=== PATIENT | female | born 1945 | race Caucasian/White ===

== ENCOUNTER 2017-04-30 09:42 | Observation (INO) | payer MEDICARE ==
--- OUTSIDE RECORDS SUMMARY | 2017-04-30 09:45 | XMS | Clinical Summary ---
:1945 Author Organization [facility] Address [address] [place] [address] Phone Care Team Providers Name Role Phone Gavin Cantu Primary Care Provider tel Allergies Active Allergy Reactions Severity Noted Date Comments Codeine 01/17/2017 Current Medications Prescription Sig. Disp. Refills Start Date End Date Status allopurinol (ZYLOPRIM) 300 10/23/2016 Active MG tabletIndications:Cirrhosi s of liver without ascites, unspecified hepatic cirrhosis type,Fatty liver,Metabolic syndrome,DM (diabetes mellitus screen) ferrous sulfate 325 (65 TK 1 T PO BID 1 01/10/2017 Active FE) MG tabletIndications:Cirrhosi s of liver without ascites, unspecified hepatic cirrhosis type,Fatty liver,Metabolic syndrome,DM (diabetes mellitus screen) furosemide (LASIX) 40 mg Take 20 mg by 0 01/10/2017 Active tabletIndications:Cirrhosi mouth once daily. s of liver without ascites, unspecified hepatic cirrhosis type,Fatty liver,Metabolic syndrome,DM (diabetes mellitus screen) HYDROcodone-acetaminophen TK 1 T PO Q 6 H 0 12/26/2016 Active (NORCO) 10-325 mg per tabletIndications:Cirrhosi s of liver without ascites, unspecified hepatic cirrhosis type,Fatty liver,Metabolic syndrome,DM (diabetes mellitus screen) lisinopril 10/23/2016 Active (PRINIVIL,ZESTRIL) 20 mg tabletIndications:Cirrhosi s of liver without ascites, unspecified hepatic cirrhosis type,Fatty liver,Metabolic syndrome,DM (diabetes mellitus screen) levothyroxine (SYNTHROID, 12/19/2016 Active LEVOXYL) 150 mcg tabletIndications:Cirrhosi s of liver without ascites, unspecified hepatic cirrhosis type,Fatty liver,Metabolic syndrome,DM (diabetes mellitus screen) nadolol (CORGARD) 20 MG TK 1 T PO QD 1 12/25/2016 Active tabletIndications:Cirrhosi s of liver without ascites, unspecified hepatic cirrhosis type,Fatty liver,Metabolic syndrome,DM (diabetes mellitus screen) pantoprazole (PROTONIX) 40 01/16/2017 Active MG EC tabletIndications:Cirrhosi s of liver without ascites, unspecified hepatic cirrhosis type,Fatty liver,Metabolic syndrome,DM (diabetes mellitus screen) LYRICA 75 mg 11/05/2016 Active capsuleIndications:Cirrhos is of liver without ascites, unspecified hepatic cirrhosis type,Fatty liver,Metabolic syndrome,DM (diabetes mellitus screen) amLODIPine (NORVASC) 5 mg TK 1 T PO QD 5 01/14/2017 Active tabletIndications:Cirrhosi s of liver without ascites, unspecified hepatic cirrhosis type,Fatty liver,Metabolic syndrome,DM (diabetes mellitus screen) potassium gluconate 550 mg Take by mouth. Active (90 mg) tabletIndications:Cirrhosi s of liver without ascites, unspecified hepatic cirrhosis type,Fatty liver,Metabolic syndrome,DM (diabetes mellitus screen) cholecalciferol, vitamin Take 2,000 Units Active D3, (VITAMIN D3) 2,000 by mouth daily. unit capsule capsuleIndications:Cirrhos is of liver without ascites, unspecified hepatic cirrhosis type,Fatty liver,Metabolic syndrome,DM (diabetes mellitus screen) coenzyme Q10 (CO Q-10) 100 Take 100 mg by Active mg mouth daily. capsuleIndications:Cirrhos is of liver without ascites, unspecified hepatic cirrhosis type,Fatty liver,Metabolic syndrome,DM (diabetes mellitus screen) magnesium oxide 250 mg Take 250 mg by Active tabletIndications:Cirrhosi mouth daily. s of liver without ascites, unspecified hepatic cirrhosis type,Fatty liver,Metabolic syndrome,DM (diabetes mellitus screen) multivitamin with minerals Take 1 tablet by Active tabletIndications:Cirrhosi mouth daily. s of liver without ascites, unspecified hepatic cirrhosis type,Fatty liver,Metabolic syndrome,DM (diabetes mellitus screen) Active Problems Not on file Encounters Date Type Specialty Care Team Description 04/25/2017 Office Visit Gastroenterology Surya Parry Cirrhosis of liver III, without ascites, unspecified hepatic cirrhosis type (Primary Dx);Abnormal LFTs from Last 3 Months Social History Tobacco Use Types Packs/Day Years Used Date Never Smoker Alcohol Use Drinks/Week oz/Week Comments No Sex Assigned at Date Recorded Not on file Last Filed Vital Signs Vital Sign Reading Time Taken Blood Pressure 154/52 04/25/2017 2:11 PM CDT Pulse 64 04/25/2017 2:11 PM CDT Temperature 36.6 C (97.9 F) 01/17/2017 1:47 PM CDT Respiratory Rate - - Oxygen Saturation - - Inhaled Oxygen Concentration - - Weight 58.5 kg (129 lb) 04/25/2017 2:11 PM CDT Height 152.4 cm (5') 04/25/2017 2:11 PM CDT Body Mass Index 25.19 04/25/2017 2:11 PM CDT Plan of Treatment Date Type Specialty Care Team Description 07/25/2017 Office Visit Gastroenterology Health Maintenance Due Date Last Done Comments COLONOSCOPY 1995 MAMMOGRAM 1995 ZOSTER VACCINE 2005 PNEUMOCOCCAL POLYSACCHARIDE VACCINE AGE 65 AND OVER 2010 PNEUMOCOCCAL-13 2010 INFLUENZA VACCINE 03/05/2017 Results Not on filefrom Last 3 Months Insurance Payer Benefit Plan / Group Subscriber ID Type Phone Address MEDICARE MEDICARE PART A AND B [id number] Medicare [place], [place] [employer] CO OF [id number] [employer] [place] [phone] [place] [address]
[2017-04-30] MEDS ORDERED: Water For Inject, Bacteriostat 30 ML ONE (10:15)
[2017-04-30] MEDS ORDERED: methylPREDNISolone Sod Succ/PF 125 MG/2 ML VIAL ONE (10:15)
[2017-04-30] MEDS ORDERED: cefTRIAXone\\ROCEPHIN 1 GM VIAL ONE (10:25)
[2017-04-30 10:35] LABS: #Eosinphils 0.1 thou/uL (0.0-0.7); #Lymphocytes 0.6 thou/uL (1.20-3.40); #Monocytes 0.3 thou/uL (0.11-0.59); #Neutrophils 2.6 thou/uL (1.40-6.50); %Basophils 0.4 % (0.0-1.0); %Eosinophils 3.7 % (0.0-10.0); %Lymphocytes 17.2 % (21.0-51.0); %Monocytes 7.2 % (0.0-10.0); Hematocrit 43.6 % (36.0-47.0); Mean Platelet Volume 10.6 fL (7.4-10.4); Red Blood Cell (RBC) Count 4.96 mill/uL (4.20-5.40); White Blood Cell (WBC) Count 3.6 thou/uL (4.8-10.8)
[2017-04-30 10:50] LABS: Lactic Acid - Sepsis 1.6 mmol/L (0.5-2.2)
[2017-04-30] MEDS ORDERED: Azithromycin 500 MG VIAL ONE (10:50)
[2017-04-30 10:57] LABS: ALT (SGPT) 30 U/L (8-55); AST (SGOT) 39 U/L (5-34); Alkaline Phosphatase 103 U/L (40-150); Anion Gap 13 mmol/L (10-20); BUN (Urea Nitrogen) 10 mg/dL (9.8-20.1); Bilirubin, Total 0.9 mg/dL (0.2-1.2); CK (CPK) 42 U/L (29-168); Calc. Creatinine Clearance 0 mL/min (70-130); Calcium 8.9 mg/dL (7.8-10.44); Carbon Dioxide 23 mmol/L (23-31); Chloride 102 mmol/L (98-107); Estimated GFR-MDRD 80; Globulin 3.6 g/dL (2.4-3.5)
--- NOTE | 2017-04-30 10:57 | RAD ---
TWO VIEWS CHEST: Comparison: 12-14-16 History: Shortness of breath, cough. FINDINGS: Two views of the chest shows normal sized cardiomediastinal silhouette. There is a moderate right pl eural effusion with adjacent atelectasis. No left pleural effusion is seen. IMPRESSION: Moderate right pleural effusion. POS: [facility]
[2017-04-30 11:01] LABS: Troponin I Less than 0.010 ng/mL (< 0.028)
[2017-04-30 13:46] VITALS: BMI 25.0
[2017-04-30 15:38] VITALS: TEMP 97.8
[2017-04-30 15:57] LABS: BF Reference Range Comment Note:
[2017-04-30 16:11] LABS: BF Color Yellow
[2017-04-30 16:12] LABS: BF WBC/Nonhematics Ct. - Manua 155 /cumm
--- NOTE | 2017-04-30 16:16 | OP ---
DATE OF SERVICE: 04/30/2017 PROCEDURE: Right thoracentesis. PREOPERATIVE DIAGNOSIS: Right pleural effusion. POSTOPERATIVE DIAGNOSIS: Right pleural effusion. ANESTHESIA: 1% lidocaine without epinephrine. DESCRIPTION OF PROCEDURE: Informed consent was obtained from the patient. Risks were explained and included bleeding, infection, and accidental lung puncture. The patient signed the consent form. Time-out was taken prior to the procedure. The patient was placed in the sitting position. The right posterior hemithorax was cleansed at the 5th-6th interspace at the mid scapular line and draped sterilely. A 1% lidocaine was used to anesth etize the entry site. Using sterile technique, a [id number]-[id number] catheter was placed in the right p leural space and 1400 mL of yellow pleural fluid was removed. It had transudative in appearance. T he fluid was sent for the usual studies. The patient tolerated the procedure well. The appearance of the fluid is most likely consistent with either hepatic hydrothorax or congestive heart failure, I favor the former.
[2017-04-30 17:00] LABS: Number Cells Counted-Fluids 100
[2017-04-30 17:32] VITALS: BP 164/71
--- NOTE | 2017-04-30 18:19 | RAD ---
CHEST ONE VIEW: 04/30/17 HISTORY: Thoracentesis. COMPARISON: Earlier exam on the same date. FINDINGS: Cardiac silhouette is magnified by projection. Pulmonary vasculature is upper limits of normal. Medi astinum remains midline with aortic calcification. Right pleural fluid has decreased. There is no evidence of pneumothorax. IMPRESSION: 1. Partial evacuation of the right pleural fluid. No evidence of pneumothorax. 2. Atherosclerosis. POS: [facility]
--- NOTE | 2017-04-30 21:28 | CON ---
DATE OF CONSULTATION: 04/30/2017 CONSULTING PHYSICIAN: Tiny Walton MD REASON FOR CONSULTATION: Right pleural effusion. HISTORY OF PRESENT ILLNESS: Patient is a 72-year-old female who presented to the emergency room ear lier today, complaining of shortness of breath that had been present for the last 3-4 days. She say s about a week ago, she got back from a trip to seeing family in [place]. She caught some typ e of respiratory infection. She has been short of breath for 3-4 days. She had an x-ray in the ER, which showed a moderate-sized pleural effusion. She does have a history of both aortic stenosis and cirrhosis of the liver. She tells me that at on e point in the past, she did have a pleural effusion, but it dissipated after antibiotic therapy. S he has also had fluid in the abdomen in the past, but it has never required paracentesis and she has been taking diuretics to control that. PAST MEDICAL HISTORY: 1. Cirrhosis of the liver considered to be steatohepatitis in origin. 2. Hypertension. 3. Aortic stenosis. 4. Hypothyroidism. 5. Rheumatoid arthritis. PAST SURGICAL HISTORY: Appendectomy, tonsillectomy. PSYCHIATRIC HISTORY: None. SOCIAL HISTORY: Nonsmoker. Never a drinker. Does not use illicit drugs. FAMILY MEDICAL HISTORY: Unremarkable. ALLERGIES: CODEINE. MEDICATIONS PRIOR TO ADMISSION: Levothyroxine, Mercer, nadolol, pantoprazole, Lyrica, amlodipine, ir on sulfate, furosemide. REVIEW OF SYSTEMS: Otherwise negative. PHYSICAL EXAMINATION: VITAL SIGNS: Temperature 98.7, pulse 60, respirations 18, O2 sat 95%, blood pressure 184/81. GENERAL: She is awake and alert and in no acute distress. HEENT: Pupils react. Sclerae are anicteric. Oropharynx clear. NECK: Without adenopathy or JVD. CARDIAC: S1 and S2 regular with a 3/6 systolic murmur at the left sternal border which radiates to the carotids. LUNGS: She has diminished breath sounds in the right base compared to left. She has dullness to pe rcussion on the right base approximately one half way up. ABDOMEN: Soft, slightly protuberant without fluid wave. EXTREMITIES: No clubbing, cyanosis, edema, or bruising. LABORATORY AND DIAGNOSTIC DATA: White blood cell count 3.6, hematocrit 43.6, platelet count 60,000. Sodium 134, potassium 3.9, chloride 102, CO2 of 23, BUN 10, creatinine 0.7, glucose 113, AST 39, A LT 30, alkaline phosphatase 103, BNP 317. Chest x-ray was reviewed. ASSESSMENT: 1. Dyspnea. 2. Right pleural effusion - etiology, hepatic hydrothorax versus congestive heart failure from aort ic stenosis versus parapneumonic from possible recent pneumonia. PLAN: Diagnostic and therapeutic right thoracentesis. We discussed the risk of the procedure inclu ding bleeding, infection, and accidental lung puncture. She understands with her thrombocytopenia t hat she is at increased risk for bleeding. She has agreed to proceed with the previous procedure. Further disposition to follow based on fluid results.
--- NOTE | 2017-05-01 06:36 | SS ---
DATE OF ADMISSION: 04/30/2017 DATE OF DISCHARGE: 04/30/2017 ADMISSION DIAGNOSIS: Moderate right pleural effusion. DISCHARGE DIAGNOSIS: Pleural effusion, improved. OTHER DIAGNOSES: Liver cirrhosis secondary to nonalcoholic fatty liver disease , severe aortic stenosis, hypertension, hyperlipidemia, and chronic gout, hypothyroidism, gastroesophageal reflux disease, neuropathy, anemia. CONSULTATION: Dr. Bain for pulmonary procedures, bedside thoracentesis. HISTORY OF PRESENT ILLNESS: This is a 72-year-old female patient who is being followed by Dr. Singer and Dr. Parry at [facility] for liver cirrhosis, likely secondary to nonalcoholic fatty liver disease and this was initially discovered in 11/2016. During hospitalization when she was admitted for an upper GI bleed, she was found to have esophageal varices at that time, which were found to be due to liver cirrhosis. She has been followed by Dr. Parry since that time and has been doing well. Patient states that she last saw her liver doctor last week. Over the weekend she was traveling to back home from [place] when she developed a cough and that progressively worsened and she developed a shortness of breath over the past 1 to 2 days. In the emergency department today, she was found to have a moderate right pleural effusion as she was mildly hypoxic down to about 90%. She was seen by Dr. Bain who performed a bedside thoracentesis and she had rapid improvement of her symptoms following that. The fluid analysis is pending at this time per Dr. Bain. He was okay with her being discharged home since she had no other signs of infection, heart or lung disease at this time. PAST MEDICAL HISTORY: Again, nonalcoholic fatty liver disease; chronic back pain, status post back surgery; hypertension; hyperlipidemia; hypothyroidism. ALLERGIES: To CODEINE. CURRENT MEDICATIONS: Include levothyroxine 100 mcg daily, nadolol 20 mg daily, pantoprazole 40 mg daily, Lyrica 75 mg daily, amlodipine 10 mg daily, ferrous sulfate 325 mg b.i.d., furosemide 20 mg daily. 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 She lives alone with her daughter nearby. FAMILY HISTORY: Noncontributory. REVIEW OF SYSTEMS: As per the history of present illness, no recent fevers or chills. HEENT: She has had a cough and congestion and upper respiratory symptoms. Cardiac: Denies chest pain or palpitations. She is followed by Dr. Laura. Pulmonary: Positive for cough, positive shortness of breath, no hemoptysis. Gastrointestinal: No nausea, vomiting, abdominal pain, melena, or hematochezia. Genitourinary: No dysuria or hematuria. Neurologic: No weakness, seizures, or syncope. PHYSICAL EXAMINATION: VITAL SIGNS: Temperature 97.8, pulse of 59, respirations 20, pulse oximetry is 95% on room air, blood pressure 164/71. GENERAL: She is awake and alert, in no acute distress. Speech is clear. NECK: Supple. HEENT: Mucosa is moist. Sinus tenderness NECK: anterior cervical adenopathy HEART: Regular rate and rhythm with 3/6 systolic ejection murmur. LUNGS: With decreased breath sounds on the right side, but no wheeze, rales, or rhonchi. ABDOMEN: Soft, nontender. No hepatosplenomegaly. EXTREMITIES: No clubbing, cyanosis, or edema. No calf tenderness. LABORATORY DATA AND IMAGING: White blood cell count 3,600, hemoglobin and hematocrit are 14.2 and 43.6, platelets of 16,000, which has improved from her recent hospitalization. Sodium 134, potassium 3.9, chloride 102, CO2 of 23, BUN and creatinine are 10 and 0.72, serum glucose of 113. Lactic acid of 1.6. AST and ALT of 39 and 30, alkaline phosphatase of 103. Troponin I is less than 0.1. BNP is slightly elevated at 317, albumin of 3.4. Thoracentesis fluid is pending. Chest x-ray initially showed a moderate right pleural effusion, following the thoracentesis, revealed no pneumothorax and partial evacuation of the right pleural fluid. ASSESSMENT AND PLAN: 1. This is a 72-year-old female patient with acute onset of moderate right pleural effusion, status post bedside thoracentesis. Pleural fluid analysis is pending, but appeared transudative per Dr. Bain. He feels like it is most likely due to her liver disease. He agrees with discharge home with close followup on the pleural fluid as an outpatient. 2. Non-alcoholic fatty liver disease. Follow up with Dr. Singer and Dr. Parry. 3. Severe aortic stenosis. Slight elevation in BNP but no overt heart failure. Continue diuretics. She has a followup with Dr. Laura. 4. Upper respiratory infection with cough. We will start benzonatate, Zithromax and close follow-up as an outpatient. MTDD
[2017-05-03 11:19] LABS: Fungus Smear Status Final report (.)
== END 2017-04-30 19:45 | disposition home or self-care (01) ==
LOC: ERS 09:42 → 2SW 12:13
PROVIDERS: ADMIT Family Medicine; ATTEND Family Medicine
PROC: 0W9930Z Drainage of Right Pleural Cavity with Drainage Device, Percutaneous Approach (ICD-10-PCS; principal; 2017-04-30)
DX: J90 Pleural effusion, not elsewhere classified (principal); K76.0 Fatty (change of) liver, not elsewhere classified; K74.60 Unspecified cirrhosis of liver; I35.0 Nonrheumatic aortic (valve) stenosis; I10 Essential (primary) hypertension; E78.5 Hyperlipidemia, unspecified; M10.9 Gout, unspecified; E03.9 Hypothyroidism, unspecified; K21.9 Gastro-esophageal reflux disease without esophagitis; D64.9 Anemia, unspecified; G62.9 Polyneuropathy, unspecified; M54.9 Dorsalgia, unspecified; G89.29 Other chronic pain; Z88.5 Allergy status to narcotic agent; M06.9 Rheumatoid arthritis, unspecified; Z79.899 Other long term (current) drug therapy
CPT/HCPCS: 32554; 36415; 71010; 71020; 80053; 82150; 82550; 82553; 82945; 83605; 83615; 83880; 83986; 84157; 84478; 84484; 85025; 85060; 87040; 87070; 87116; 87205; 87206; 88112; 88305; 88341; 88342; 89051; 93005; 94640; 96365; 96367; 96375; J0456; J0696; J1642; J2930; J7620

== ENCOUNTER 2017-11-11 07:32 | Outpatient (CLI) | payer MEDICARE ==
--- NOTE | 2017-11-11 08:41 | ULT ---
HEPATIC DOPPLER: Date: 11/11/17 HISTORY: Cirrhosis. COMPARISON: None. TECHNIQUE: Maravilla scale, color flow, Doppler imaging, and spectral waveform analysis performed of the liver. FINDINGS: There is increased echogenicity of the liver likely due to hepatic steatosis/hepatocellular disease. Right hepatic lobe measures 16.2 cm. The head of the pancreas has a normal echotexture. The remainder of the pancreas is obscured by bowel gas. Right kidney has an overall normal cortical echotexture. No hydronephrosis. Right kidney is not adequ ately assessed. Spleen is enlarged, measuring 17.2 cm. There is sludge and stone within the lumen of the gallbladder. Gallbladder wall is not thickened. No pericholecystic fluid. Negative Patel's sign. Common bile duct diameter is 0.7 cm. Hepatic Doppler: There is patency and appropriate direction of flow in the hepatic artery, right portal vein, left por maryjane vein, main portal vein, middle hepatic vein, right hepatic vein, and left hepatic vein. Splenic vein and artery are also patent. IMPRESSION: 1. Increased echogenicity of the liver, likely due to hepatic steatosis or hepatocellular disease. 2. Normal hepatic Doppler. 3. Splenomegaly. 4. Sonographic evidence of sludge and stones without evidence of cholecystitis. POS: [facility]
== END 2017-11-11 07:33 | disposition home or self-care (01) ==
LOC: SCSULT 07:32
PROVIDERS: ATTEND Internal Medicine Gastroenterology
DX: K74.60 Unspecified cirrhosis of liver (principal); R18.8 Other ascites; K80.20 Calculus of gallbladder without cholecystitis without obstruction; K82.8 Other specified diseases of gallbladder; R16.1 Splenomegaly, not elsewhere classified; R94.5 Abnormal results of liver function studies
CPT/HCPCS: 76705

== ENCOUNTER 2018-04-14 08:44 | Outpatient (CLI) | payer MEDICARE | END 2018-04-14 08:45 | disposition home or self-care (01) | LOC: BICULT 08:44 | PROVIDERS: ATTEND Internal Medicine Gastroenterology | DX: K74.60 Unspecified cirrhosis of liver (principal); R63.5 Abnormal weight gain; K80.20 Calculus of gallbladder without cholecystitis without obstruction | CPT/HCPCS: 76700 ==

== ENCOUNTER 2018-06-16 11:18 | Outpatient (CLI) | payer MEDICARE | END 2018-06-16 11:19 | disposition home or self-care (01) | LOC: BICMAMMO 11:18 | PROVIDERS: ATTEND Family Medicine | DX: Z12.31 Encounter for screening mammogram for malignant neoplasm of breast (principal); Z80.3 Family history of malignant neoplasm of breast | CPT/HCPCS: 77063; 77067 ==

== ENCOUNTER 2018-10-13 08:13 | Outpatient (CLI) | payer MEDICARE ==
--- NOTE | 2018-10-13 10:17 | ULT ---
ABDOMINAL ULTRASOUND: HISTORY: Abdominal pain. FINDINGS: Real-time imaging of the upper abdomen shows some sludge within the gallbladder and also small, echog enic densities within the gallbladder, which appear to represent a combination of sludge and what geoff ear to be small stones, as there is some minimal shadowing also associated with this. The common randy t is in the 6 mm range. The liver is very heterogeneous in echotexture, without focal lesion. The l iver measures approximately 19.9 cm in length. The spleen is enlarged. It measures 18 cm in length. The pancreas is obscured. The abdominal aorta and IVC regions appear unremarkable. The right kidney is borderline in size and measures 8.4 cm. The left kidney is 9.4 cm in size, and i t also shows cortical thinning. IMPRESSION: 1. Sludge with some tiny, faintly shadowing stones within the gallbladder and common duct, at the up per limits of normal, in the 6 mm range. 2. Heterogeneous liver, which is borderline in size. The spleen is markedly enlarged at 18 cm. POS: [facility]
== END 2018-10-13 08:14 | disposition home or self-care (01) ==
LOC: SCSULT 08:13
PROVIDERS: ATTEND Family Medicine
DX: R10.9 Unspecified abdominal pain (principal); K80.20 Calculus of gallbladder without cholecystitis without obstruction; K76.89 Other specified diseases of liver; R16.1 Splenomegaly, not elsewhere classified
CPT/HCPCS: 76700

== ENCOUNTER 2019-03-25 06:57 | Outpatient (CLI) | payer MEDICARE ==
--- NOTE | 2019-03-25 07:54 | ULT ---
Abdominal Ultrasound: Multiple grayscale images of right upper quadrant obtained according to protocol. INDICATION: Cirrhosis and portal hypertension FINDINGS: Liver: Coarsened echotexture. Gallbladder: Cholelithiasis. Gallbladder wall: Normal. Patel's Sign: Negative Common bile duct is 8 mm, slightly dilated for patient's age Ascites: None Spleen: Enlarged Pancreas: Partially obscured by bowel content, limiting assessment. Kidneys: No acute abnormalities. Aorta/IVC: No acute process. IMPRESSION: Coarsened hepatic echotexture which may relate to hepatocellular disease. No focal hepatic lesion estefani ntified. Cholelithiasis. Splenomegaly. This may relate to sequela from portal hypertension. Mild dilatation of common duct. Correlate with biliary laboratory values.
== END 2019-03-25 06:58 | disposition home or self-care (01) ==
LOC: BICULT 06:57
PROVIDERS: ATTEND Internal Medicine
DX: K74.60 Unspecified cirrhosis of liver (principal); R94.5 Abnormal results of liver function studies; K75.81 Nonalcoholic steatohepatitis (NASH); K76.6 Portal hypertension; K80.20 Calculus of gallbladder without cholecystitis without obstruction; R16.1 Splenomegaly, not elsewhere classified
CPT/HCPCS: 76700

== ENCOUNTER 2019-07-10 06:56 | Outpatient (CLI) | payer MEDICARE ==
--- NOTE | 2019-07-10 08:19 | ULT ---
LIVER ULTRASOUND WITH COLOR AND SPECTRAL DOPPLER IMAGING: HISTORY: Cirrhosis. COMPARISON: 11/11/2017. FINDINGS: Coarse liver echogenicity. Multiple mobile hyperechoic foci within the gallbladder suspicious for st ones. Minimal focal gallbladder wall thickening up to 0.7 cm, although the remainder of the gallblad sergo wall appeared within normal limits. Common bile duct 0.4 cm. Somewhat small right kidney with c ortical thinning without hydronephrosis. Hepatic venous and portal venous flow. IMPRESSION: Coarse altered liver echogenicity showing little change from prior study. Multiple gallstones. Ther e is 1 focal area of gallbladder wall thickening, although the remainder of the gallbladder wall was within normal limits. No ductal dilatation. Antegrade hepatic and portal venous flow. Splenomegaly up to 16 cm. POS: [facility]
== END 2019-07-10 06:57 | disposition home or self-care (01) ==
LOC: BICULT 06:56
PROVIDERS: ATTEND Internal Medicine
DX: K75.81 Nonalcoholic steatohepatitis (NASH) (principal); K74.60 Unspecified cirrhosis of liver; R94.5 Abnormal results of liver function studies; E70.0 Classical phenylketonuria; K80.80 Other cholelithiasis without obstruction; K82.8 Other specified diseases of gallbladder; R16.1 Splenomegaly, not elsewhere classified
CPT/HCPCS: 76705

== ENCOUNTER 2019-07-28 22:38 | Emergency (ER) | payer MEDICARE ==
[2019-07-29 02:18] LABS: Bacteria/HPF 1+ HPF (None Seen); Bilirubin Negative (Negative); Blood, Urine 3+ (Negative); Clarity Extra Turbid (Clear); Glucose, Urine (Dipstick) Normal (Negative); Leukocyte 500 Leu/uL (Negative); Nitrite Negative (Negative); Protein, Urine (Dipstick) 70 mg/dL (Neg-Trace); RBC/HPF Greater than 50 HPF (0-3); Squamous Epithelial 0-3 HPF (0-3); Urobilinogen Normal mg/dL (Less than 2); WBC/HPF Greater than 50 HPF (0-3)
[2019-07-29] MEDS ORDERED: Lidocaine 1% PF 5 ML VIAL ONE (03:01)
[2019-07-29] MEDS ORDERED: cefTRIAXone\\ROCEPHIN 1 GM VIAL ONE (03:01)
== END 2019-07-29 03:25 | disposition home or self-care (01) ==
LOC: ERS 22:38
DX: N39.0 Urinary tract infection, site not specified (principal); I10 Essential (primary) hypertension; E78.5 Hyperlipidemia, unspecified; E03.9 Hypothyroidism, unspecified; M06.9 Rheumatoid arthritis, unspecified; Z79.899 Other long term (current) drug therapy; Z79.891 Long term (current) use of opiate analgesic
CPT/HCPCS: 51701; 81003; 81015; 87077; 87086; 87186; 96372; A4353; J0696; J2001

== ENCOUNTER 2019-08-03 08:18 | Emergency (ER) | payer MEDICARE ==
[2019-08-03 09:15] LABS: #Eosinphils 0.1 thou/uL (0.0-0.7); #Lymphocytes 0.9 thou/uL (1.20-3.40); #Monocytes 0.2 thou/uL (0.11-0.59); %Basophils 0.6 % (0.0-1.0); %Eosinophils 3.2 % (0.0-10.0); %Lymphocytes 28.2 % (21.0-51.0); %Monocytes 6.8 % (0.0-10.0); %Neutrophils 61.2 % (42.0-75.0); Hemoglobin 12.6 g/dL (12.0-16.0); Mean Corpuscular HGB CONC 34.8 g/dL (32.0-36.0); Mean Corpuscular Hemoglobin 30.6 pg (27.0-31.0); RBC Distribution Width 12.3 % (11.5-14.5); Red Blood Cell (RBC) Count 4.12 mill/uL (4.20-5.40); White Blood Cell (WBC) Count 3.3 thou/uL (4.8-10.8)
--- NOTE | 2019-08-03 09:28 | CT ---
CT BRAIN NONCONTRAST: DATE: 08/03/2019 HISTORY: 74-year-old female status post acute head trauma from fall. FINDINGS: There is no evidence of acute intra-axial or extra-axial hemorrhage. There is no midline shift or any other mass effect. There is no extra-axial fluid collection. There is no evidence of obstructive hydrocephalus. Calvarium is intact. Opacification of right posterior ethmoid air cells. IMPRESSION: No acute intracranial findings.
[2019-08-03 09:29] LABS: ALT (SGPT) 23 U/L (8-55); AST (SGOT) 33 U/L (5-34); Albumin 3.2 g/dL (3.4-4.8); Alkaline Phosphatase 110 U/L (40-110); Anion Gap 11 mmol/L (10-20); BUN (Urea Nitrogen) 13 mg/dL (9.8-20.1); Bilirubin, Total 1.2 mg/dL (0.2-1.2); Calc. Creatinine Clearance 0 mL/min (70-130); Calcium 8.8 mg/dL (7.8-10.44); Carbon Dioxide 25 mmol/L (23-31); Chloride 98 mmol/L (98-107); Estimated GFR-MDRD 67; Globulin 3.4 g/dL (2.4-3.5); Glucose 136 mg/dL (83-110); Potassium 4.1 mmol/L (3.5-5.1); Protein, Total 6.6 g/dL (6.0-8.3); Sodium 130 mmol/L (136-145)
[2019-08-03 09:42] LABS: Mean Platelet Volume 9.7 fL (7.4-10.4); Platelet Count 43 thou/uL (130-400); Platelet Morphology Comment Appears Decreased; RBC Morphology Normal
[2019-08-03] MEDS ORDERED: Lidocaine 1% w/Epinephrine 1:100K 20 ML VIAL ONE (10:17)
[2019-08-03] MEDS ORDERED: Adacel (T-DAP) 0.5 ML SYRINGE ONE (11:23)
[2019-08-03] MEDS ORDERED: Bacitracin 1 PK ONE (11:45)
== END 2019-08-03 11:50 | disposition home or self-care (01) ==
LOC: ERS 08:18
DX: S01.81XA Laceration without foreign body of other part of head, initial encounter (principal); E78.5 Hyperlipidemia, unspecified; I10 Essential (primary) hypertension; M10.9 Gout, unspecified; E03.9 Hypothyroidism, unspecified; M06.9 Rheumatoid arthritis, unspecified; Z79.899 Other long term (current) drug therapy; Z79.891 Long term (current) use of opiate analgesic; Z23 Encounter for immunization; W01.0XXA Fall on same level from slipping, tripping and stumbling without subsequent striking against object, initial encounter
CPT/HCPCS: 12011; 36415; 70450; 80053; 85025; 90471; 90715; 93005

== ENCOUNTER 2019-11-25 07:22 | Outpatient (CLI) | payer MEDICARE ==
--- NOTE | 2019-11-25 12:05 | ULT ---
ULTRASOUND ABDOMEN: HISTORY: Nonalcoholic steatohepatitis. COMPARISON: Ultrasound of 03/25/2018. FINDINGS: Real-time, bobo scale, and color evaluation of the abdomen was performed. Visualized portions of the aorta, IVC, and pancreas are unremarkable. The pancreatic duct is normal. There is a nodular contour of the liver. There is increased hepatic echotexture throughout. The liver measures 15 cm in length. The pulmonary vein is patent with antegrade flow. Minimal phasi city. There is gallbladder sludge and debris. Gallbladder wall thickness is normal. The common bile duct is normal. The right kidney measures 9.3 x 3.8 x 4.3 cm and the left kidney measures 10.6 x 4.6 x 4.4 cm. No re nal mass, hydronephrosis, or abnormal calcification. The spleen is enlarged measuring 18 cm in lengt h. IMPRESSION: 1. Small cirrhotic liver without mass appreciated. 2. Marked splenomegaly. 3. Decreased flow within the portal vein indicating portal hypertension. The portal vein is patent. 4. Gallbladder sludge and debris with cholelithiasis. No evidence for cholecystitis. POS: [facility]
== END 2019-11-25 07:23 | disposition home or self-care (01) ==
LOC: ULT 07:22
PROVIDERS: ATTEND Internal Medicine
DX: K75.81 Nonalcoholic steatohepatitis (NASH) (principal); K74.60 Unspecified cirrhosis of liver; R94.5 Abnormal results of liver function studies; R16.1 Splenomegaly, not elsewhere classified; K76.6 Portal hypertension; K80.20 Calculus of gallbladder without cholecystitis without obstruction; K82.8 Other specified diseases of gallbladder
CPT/HCPCS: 93975

== ENCOUNTER 2019-12-22 22:46 | Inpatient (IN) | payer MEDICARE ==
[2019-12-22] MEDS ORDERED: Atropine Sulfate 1 mg/10 ml Syringe ONE (23:44)
[2019-12-22] MEDS ORDERED: Aspirin Chewable 81 MG TAB ONE (23:44)
[2019-12-22 23:57] LABS: #Eosinphils 0.2 thou/uL (0.0-0.7); #Lymphocytes 0.9 thou/uL (1.20-3.40); #Monocytes 0.6 thou/uL (0.11-0.59); #Neutrophils 7.7 thou/uL (1.40-6.50); %Basophils 0.3 % (0.0-1.0); %Eosinophils 2.3 % (0.0-10.0); %Lymphocytes 9.9 % (21.0-51.0); %Monocytes 6.4 % (0.0-10.0); %Neutrophils 81.2 % (42.0-75.0); Hemoglobin 12.5 g/dL (12.0-16.0); Mean Corpuscular HGB CONC 34.6 g/dL (32.0-36.0); Mean Corpuscular Hemoglobin 30.7 pg (27.0-31.0); Mean Corpuscular Volume 88.7 fL (78.0-98.0); Mean Platelet Volume 9.7 fL (7.4-10.4); Platelet Count 73 thou/uL (130-400); RBC Distribution Width 12.4 % (11.5-14.5); Red Blood Cell (RBC) Count 4.08 mill/uL (4.20-5.40); White Blood Cell (WBC) Count 9.4 thou/uL (4.8-10.8)
[2019-12-23 00:05] LABS: ALT (SGPT) 27 U/L (8-55); AST (SGOT) 31 U/L (5-34); Albumin 3.5 g/dL (3.4-4.8); Alkaline Phosphatase 117 U/L (40-110); Anion Gap 16 mmol/L (10-20); BUN (Urea Nitrogen) 37 mg/dL (9.8-20.1); Bilirubin, Total 1.4 mg/dL (0.2-1.2); Calc. Creatinine Clearance 0 mL/min (70-130); Calcium 8.9 mg/dL (7.8-10.44); Carbon Dioxide 20 mmol/L (23-31); Chloride 92 mmol/L (98-107); Estimated GFR-MDRD 33; Globulin 3.8 g/dL (2.4-3.5); Glucose 122 mg/dL (83-110); Potassium 5.6 mmol/L (3.5-5.1); Protein, Total 7.3 g/dL (6.0-8.3); Sodium 122 mmol/L (136-145)
[2019-12-23] MEDS ORDERED: Acetaminophen 325 MG TAB PO PRN (02:27)
--- NOTE | 2019-12-23 02:37 | PDOC.HHP ---
Hospitalist HPI - History of Present Illness Lightheaded History of Present Illness: This patient is a 74-year-old female who has a history of cirrhosis likely secondary to chronic nonalcoholic fatty liver disease. She is followed in [place] by a tankman there. The patient reports for the last couple of months she has had episodes in which she would feel suddenly faint and lightheaded and dizzy. This would happen at random times and was unrelated to her activity level. Typically she would stop put her head down and the symptoms would generally go away fairly quickly. She had been monitoring her blood pressure and heart rate at home. Her blood pressure had been running a little high. Heart rate had been running generally in the 50s to 70s. Today the patient noted heart rate in the 40s so she presented to the emergency department. She reported some additional symptoms of some nausea vomiting. She also reports that she has had some occasional fleeting chest pain. She describes this as longstanding and not related to the more recent symptoms. ED Course: Patient's heart rate was noted to be as low as the 30s. She was given a dose of atropine and her heart rate did improve. She reported feeling better after this. Hospitalist ROS - Review of Systems Constitutional: denies: fever, chills Cardiovascular: reports: chest pain. denies: palpitations Gastrointestinal: reports: nausea. denies: vomiting, abdominal pain Neurological: reports: weakness All other systems reviewed; all pertinent +/- noted in HPI/Subj - Medication Medications: levothyroxine oral TABLET : Strength - 100 mcg : ORAL Patient Dose: UNK mcg Oral once a day. [place] TABLET : Strength - 10 mg-325 mg : ORAL Patient Dose: 1 tab(s) Oral every 6 hours PRN. nadolol TABLET : Strength - 20 mg : ORAL Patient Dose: 1 tab(s) Oral once a day. amLODIPine TABLET : Strength - 10 mg : ORAL Patient Dose: 1 tab(s) Oral once a day. Lyrica CAPSULE : Strength - 75 mg : ORAL Patient Dose: 1 tab(s) Oral once a day. pantoprazole oral TABLET, DELAYED RELEASE (ENTERIC COATED) : Strength - 40 mg : ORAL Patient Dose: 1 tab(s) Oral once a day. furosemide oral TABLET : Strength - 20 mg : ORAL Patient Dose: 10 mg null once a day. ferrous sulfate oral TABLET : Strength - 28 mg iron : ORAL Patient Dose: 325 mg Oral 2 times a day (before meals). Macrobid capsule : Strength - 100 mg : ORAL Patient Dose: 100 mg Oral 2 times a day. Pyridium tablet : Strength - 100 mg : ORAL Patient Dose: 100 mg Oral 3 times a day. 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: Peripheral neuropathy (Secondary to shingles in the right upper extremity.) Gastrointestinal: reports: GERD, Other (Cirrhosis presumed to be secondary to chronic nonalcoholic fatty liver disease.) Endocrine: reports: Hypothyroidism - Past Surgical History Past Surgical History: reports: Hysterectomy, Hernia Repair, Tonsillectomy Other Surgical History: Lumbar spinal stenosis surgery - Family History Family History: reports: cancer (Sister with breast cancer), cerebrovascular accident (Mother), Other (Sister with Crohn's disease her father had "enlarged heart") - Social History Smoking Status: Never smoker Alcohol: reports: None Drugs: reports: none Activity level: independent ambulation Other Social History: . DNAR. Her daughter would be her surrogate decision maker. Hospitalist Results - Labs Result Diagrams: 12/22/19 23:26 12/22/19 23:26 Lab results: WBC 9.4 thou/uL (4.8-10.8) 12/22/19 23:26 Hgb 12.5 g/dL (12.0-16.0) 12/22/19 23:26 Hct 36.2 % (36.0-47.0) 12/22/19 23:26 MCV 88.7 fL (78.0-98.0) 12/22/19 23:26 Plt Count 73 thou/uL (130-400) L 12/22/19 23:26 Neutrophils % 81.2 % (42.0-75.0) H 12/22/19 23:26 Sodium 122 mmol/L (136-145) L 12/22/19 23:26 Potassium 5.6 mmol/L (3.5-5.1) H 12/22/19 23:26 Chloride 92 mmol/L (98-107) L 12/22/19 23:26 Carbon Dioxide 20 mmol/L (23-31) L 12/22/19 23:26 BUN 37 mg/dL (9.8-20.1) H 12/22/19 23:26 Creatinine 1.52 mg/dL (0.6-1.1) H 12/22/19 23:26 Glucose 122 mg/dL (83-110) H 12/22/19 23:26 Calcium 8.9 mg/dL (7.8-10.44) 12/22/19 23:26 Total Bilirubin 1.4 mg/dL (0.2-1.2) H 12/22/19 23:26 AST 31 U/L (5-34) 12/22/19 23: ALT 27 U/L (8-55) 12/22/19 23:26 Alkaline Phosphatase 117 U/L (40-110) H 12/22/19 23: Troponin I 0.026 ng/mL (< 0.028) 12/22/19 23: Serum Total Protein 7.3 g/dL (6.0-8.3) 12/22/19: Albumin 3.5 g/dL (3.4-4.8) 12/22/19 23:26 - EKG Interpretation EKG: EKG shows bradycardia with a heart rate of 41. Heart monitor indicated P waves were present. Hospitalist H&P A/P - Problem (1) Symptomatic bradycardia Code(s): R00.1 - BRADYCARDIA, UNSPECIFIED Status: Acute Assessment and Plan: Patient symptoms appear to be consistent with symptomatic bradycardia. She had an EKG and monitors that would suggest that she is having episodes of bradycardia. Patient will remain on telemetry. Will obtain serial cardiac isoenzymes. We will check a TSH level. We will hold the nadolol for now. Consult cardiology. Currently she is feeling somewhat better and heart rate is somewhat improved. Suspect this is been an intermittent problem (2) Hyponatremia Code(s): E87.1 - HYPO-OSMOLALITY AND HYPONATREMIA Status: Acute Assessment and Plan: This patient has chronic hyponatremia although it is slightly worse now than it has been previously. It appears to be generally asymptomatic as would be expected given her chronic nature. Will consult nephrology. Suspect this is due to her cirrhosis and possibly Lasix as well. (3) Acute worsening of stage 3 chronic kidney disease Code(s): N18.3 - CHRONIC KIDNEY DISEASE, STAGE 3 (MODERATE) Status: Acute Assessment and Plan: This patient has chronic kidney disease stage III. Her GFR is now lower than her baseline. Suspect this is due to acute hepatorenal syndrome. Will give IV albumin. Consult nephrology. (4) Hepatorenal syndrome Code(s): K76.7 - HEPATORENAL SYNDROME Status: Acute (5) Cirrhosis Code(s): K74.60 - UNSPECIFIED CIRRHOSIS OF LIVER Status: Acute Assessment and Plan: We will check INR in anticipation of the possibility of needing cardiac procedure. (6) Nonalcoholic steatohepatitis Code(s): K75.81 - NONALCOHOLIC STEATOHEPATITIS (SINGH) Status: Acute - Plan Plan: Continue PPI. Will provide SCDs rather than anticoagulation given the underlying liver disease and potential need for procedure
[2019-12-23 02:38] VITALS: BMI 28.9
[2019-12-23] MEDS: Albumin 25% 25 GM/100 ML BOT IVPB SCH ×4 (02:49→21:12)
[2019-12-23 02:56] LABS: Troponin I 0.034 ng/mL (< 0.028)
--- NOTE | 2019-12-23 03:31 | PDOC.EVN ---
Event Note - Event Note Event Note: Patient was unable to void. Bladder scan with about 500 cc. I and O cath ordered.
[2019-12-23 04:21] LABS: INR-International Normal Ratio 1.4; Prothrombin Time 17.3 sec (12.0-14.7)
[2019-12-23 04:22] LABS: PTT 47.3 SEC (22.9-36.1)
[2019-12-23] MEDS ORDERED: Levothyroxine Sodium 125 MCG TAB PO SCH (06:00)
[2019-12-23] MEDS: Furosemide 20 MG TAB PO SCH (08:26)
[2019-12-23] MEDS: Famotidine 20 MG TAB PO SCH (08:26)
[2019-12-23] MEDS: Loratadine 10 MG TAB PO SCH (08:26)
[2019-12-23] MEDS: HYDROcodone/Acetaminophen 10/325 mg Tablet PO SCH ×3 (08:28→20:58)
[2019-12-23] MEDS ORDERED: Spironolactone 100 MG TAB PO SCH (09:00)
[2019-12-23 10:26] LABS: Anion Gap 13 mmol/L (10-20); BUN (Urea Nitrogen) 34 mg/dL (9.8-20.1); Calc. Creatinine Clearance 44 mL/min (70-130); Calcium 9.5 mg/dL (7.8-10.44); Carbon Dioxide 23 mmol/L (23-31); Chloride 92 mmol/L (98-107); Estimated GFR-MDRD 44; Glucose 85 mg/dL (83-110); Potassium 4.9 mmol/L (3.5-5.1); Sodium 123 mmol/L (136-145)
[2019-12-23] MEDS ORDERED: Ondansetron ODT 4 MG TAB PO PRN (10:51)
[2019-12-23] MEDS ORDERED: Ondansetron PF 4 MG/2 ML Vial SLOW IVP PRN (11:08)
--- NOTE | 2019-12-23 15:30 | EKG ---
Test Reason : Blood Pressure : / mmHG Vent. Rate : 041 BPM Atrial Rate : 041 BPM P-R Int : 228 ms QRS Dur : 134 ms QT Int : 516 ms P-R-T Axes : 044 -15 008 degrees QTc Int : 425 ms Marked sinus bradycardia with 1st degree A-V block with Premature atrial complexes in a pattern of bi geminy Right bundle branch block Left ventricular hypertrophy Cannot rule out Septal infarct , age undetermined Abnormal ECG Confirmed by SHANIQUA CAMACHO, JEFFERSON Jewell ([id number]), web editor PAULA IGLESIAS ([id number]) on 12/23/2019 3:30:07 PM Referred By: Confirmed By:JEFFERSON MCGOVERN MD
[2019-12-23] MEDS ORDERED: HYDROcodone/Acetaminophen 10/325 mg Tablet PO SCH (17:00)
[2019-12-23 17:34] LABS: Anion Gap 14 mmol/L (10-20); BUN (Urea Nitrogen) 33 mg/dL (9.8-20.1); Calc. Creatinine Clearance 43 mL/min (70-130); Calcium 9.2 mg/dL (7.8-10.44); Carbon Dioxide 21 mmol/L (23-31); Chloride 95 mmol/L (98-107); Estimated GFR-MDRD 43; Glucose 100 mg/dL (83-110); Potassium 4.7 mmol/L (3.5-5.1); Sodium 125 mmol/L (136-145)
[2019-12-23] MEDS: Pregabalin 75 MG CAP PO SCH (20:59)
--- NOTE | 2019-12-23 21:15 | CON ---
DATE OF CONSULTATION: 12/23/2019 PRIMARY CARE PHYSICIAN: Gavin Cantu DO. PRIMARY ETL TESTER: Lily Laura MD. PRIMARY BROOM BUILDER: Aggie Ashraf MD. PRIMARY SLITTER CUT OFF OPERATOR: Dr. Parry in [place], [place]. SHOE CASER: Dr. Mayo. REASON FOR CARDIOLOGY CONSULTATION: Symptomatic bradycardia. HISTORY OF PRESENT ILLNESS: Ms. Bocanegra is a 74-year-old female with a significant history of severe aortic valve stenosis, history of cirrhosis secondary to chronic nonalcoholic fatty liver disease, hypertension, hyperlipidemia, chronic right bundle branch block and bilateral carotid bruit. In September 2019, the patient followed up with Dr. Laura. At that time, her vital signs were stable with a blood pressure of 138/62 with a heart rate of 56 with sinus rhythm. At that time, the patient complained of chronic shortness of breath with exertion with exercise. However, at that time, she denied any other cardiac complaints. According to a family member, she started feeling fatigued within the last few weeks. She complained of more exertion and taking more naps lately. She started having more dizziness with shortness of breath and fatigue all day yesterday. Also, the patient felt almost passed out with movement, walking and while she was resting on the recliner. The patient denied any chest pain, heaviness, tightness, palpitation, or fluttering in her chest. The patient's blood pressure also found to have high more than 200 on the systolic yesterday with heart rate 45 to 50s. Due to those symptoms, the patient decided to present in the emergency department for further evaluation and treatment. The patient was found to have hyperkalemia. The patient received Kayexalate per the nurse. The patient was also found to have hyponatremia and hypercarbia and also acute kidney injury. Nephrology consult is already ordered by the hospitalist. At this moment, the patient denies any chest pain, heaviness, tightness, dizziness, lightheadedness, shortness of breath, or any other complaints, except continued feeling of fatigue. The patient had an echocardiogram in September [address] Laura' office with an EF of 60% to 65%, severe aortic valve stenosis with SHAYLA 0.85 cm with mild mitral valve regurgitation, mild tricuspid regurgitation, and mild pulmonary regurgitation. The patient had a cardiac cath in 2017 with mild stenosis in LAD , mild aortic valve stenosis, AV gradient of 25 to 30 mmHg with normal EF and with 30% of stenosis in LAD and 50% of stenosis in first diagonal. PAST MEDICAL HISTORY: Cirrhosis secondary to nonalcoholic fatty liver disease in 2017, inguinal hernia, hypertension, hyperlipidemia, osteoarthritis, hypothyroidism, spinal stenosis, nonrheumatic aortic valve stenosis, bilateral carotid artery bruits, and chronic right bundle branch block. PAST SURGICAL HISTORY: Pleural effusion status post thoracentesis, appendectomy , bilateral cataract surgery, bilateral oophorectomy, hernia repair, hysterectomy, spinal stenosis repair and catheterization in 2017. FAMILY HISTORY: The patient's mother has a medical history of CVA and hypertension. The patient's father has a history of myocardial infarction. The patient's sister had a history of breast cancer and also sister has Crohn disease. SOCIAL HISTORY: The patient is a . The patient has children, who lives well. She denies EtOH, tobacco, or illicit drug abuse. At home, she is independent ambulation. ALLERGIES: SHE HAS NO KNOWN DRUG ALLERGIES. MEDICATIONS: 1. Vitamin D3 2000 units once a day. 2. CoQ10 100 mg once a day. 3. Lyrica 75 mg once a day. 4. Multivitamin 1 tablet once a day. 5. Nadolol 20 mg once a day. 6. Magnesium 250 mg once a day. 7. Protonix 40 mg once a day. 8. Lactulose 10 g/15 mL once a day. 9. Lasix 40 mg once a day. 10. Ferrous sulfate 325 mg once a day. 11. Levothyroxine 150 mcg once a day. 12. Hydrochlorothiazide with acetaminophen 10/325 mg 1 tablet once a day as needed every 6 hours. 13. Spironolactone 100 mg once a day. 14. Premarin 0.625 mg/g. 15. Trimo-Dalton 0.025% gel. 16. Claritin 10 mg 1 tablet once a day. 17. Premarin 0.3 mg 1 tablet once a day. 18. Hysingla ER 30 mg once a day. 19. Tirosint 150 mcg once a day. REVIEW OF SYSTEMS: A 12-point review of systems negative unless otherwise mentioned in the HPI. PHYSICAL EXAMINATION: VITAL SIGNS: Blood pressure 168/72, temperature 97.2, pulse is 58, respiratory rate 17, O2 saturation 98% on room air. GENERAL: The patient is alert and oriented x4, not in acute distress. HEAD: Normocephalic, atraumatic. EYES: Extraocular muscle movement intact. ENT AND MOUTH: Oral and nasal mucosa moist without lesion. She wears glasses. NECK: Supple. Normal range of motion. The patient has some bruits in the bilateral carotid area. RESPIRATORY: Clear to auscultate bilaterally, but with no wheezing, rales, or rhonchi noted. CARDIOVASCULAR: Regular rate and rhythm. Normal S1, S2. There is no S3 or S4. She has a murmur on the right mediastinal border. Otherwise, no hives or thrills noted. 2+ pulses in bilateral upper and lower extremities. No edema in the lower extremities. ABDOMEN: Soft, nontender. No mass to palpation, but the patient complained of nausea since the patient has Kayexalate or lactulose. MUSCULOSKELETAL: The patient is able to move all extremities without difficulty. The patient denied claudication. SKIN: Warm and dry. No lesion, rash, or erythema noted. NEUROLOGIC: The patient is alert, oriented x4, nonfocal. PSYCHIATRIC: The patient's mood is appropriate. LABORATORY DATA: WBC 9.4, hemoglobin 12.5, hematocrit 36.2, platelets 73, which is low; however, the patient's platelet level was 49 in November 2019. INR 1.4. Sodium 123, potassium 4.9, BUN 34, creatinine 1.19, GFR 44, serum osmolality 270, calcium 9.5, AST 31, ALT 27, alkaline phosphatase 117, troponin 0.026, 0.034, 0.030. Albumin 3.5, globulin 3.8, and TSH 3.0113. Urine osmolality 259. ASSESSMENT AND PLAN: 1. Symptomatic bradycardia. The patient's condition is stable at this moment possibly due to hyperkalemia or hyponatremia. The patient's thyroid function is stable at this moment. Nadolol is on hold at this moment. We would like to continue to monitor on the telemetry, but the patient's heart rate has been stable. 2. Hyponatremia. Fluid restriction will be ordered for this patient. She states she drinks at least a couple large glass of water at home. The patient has the supervisor [employer]'s consult by Dr. Mitchell today. 3. Hypertension. The patient's blood pressure is more stable at this moment. We would like to adjust the patient's medication as appropriate. 4. Acute kidney injury on chronic kidney disease, stage 3 with a GFR of 44. The patient has a Nephrology consult by Dr. Mitchell. 5. Cirrhosis secondary to nonalcoholic fatty liver disease. The patient has been following up with Dr. Ashraf every three months and Dr. Parry in [place] every year. The patient's liver function is stable at this moment. 6. Severe aortic valve stenosis. The echocardiogram in September 2019 shows severe aortic valve stenosis with SHAYLA of 0.85 cm. The patient is going to have another echo today to compare the results. If the patient still shows severe aortic valve stenosis, possibly the patient is going to undergo cardiac catheterization for further valve evaluation. Thank you very much for Cardiology Service consult request to participate in the care of this patient. We will follow along the patient's care team and make further recommendations as appropriate. Job ID: [id number] MTDD
--- NOTE | 2019-12-24 01:40 | CON ---
DATE OF CONSULTATION: REASON FOR CONSULTATION: Hyperkalemia and elevated creatinine. HISTORY OF PRESENT ILLNESS: A very pleasant 74-year-old female, who presented to the hospital early this morning with hyperkalemia and a sodium of 122 with elevated creatinine. The patient was complaining of lightheadedness. The patient can give no further history. PAST MEDICAL HISTORY: Significant for hypothyroidism, history of peripheral neuropathy, GERD, nonalcoholic fatty hepatitis, history of hyponatremia, history of acute kidney injury, history of hysterectomy, hernia repair, tonsillectomy, lumbar spinal stenosis surgery. MEDICATIONS: Home medications list reviewed. Hospital medications list reviewed. REVIEW OF SYSTEMS: 15-point review of system was performed negative except for positives noted above. HEENT: Eyes intact, no diplopia. Ears: No hearing loss or earache. Nose: No discharge or bleeding. Chest: No cough or phlegm. Abdomen: No nausea or vomiting. Genitourinary: No hematuria. No Jama catheter. Musculoskeletal: No low back pain. No joint swelling or pain. Neurological: No syncope. No seizures. Skin: No complaints of rash or itching. Psychiatric: No depression. Constitutional: No weight loss or loss of appetite. LABORATORY DATA: Labs show hemoglobin 12.5. Sodium 122, potassium 5.6, creatinine 1.5. ASSESSMENT AND RECOMMENDATIONS: 1. Acute kidney injury with chronic kidney disease most likely due to decreased effective arterial blood volume. 2. Hyponatremia, most likely due to decreased effective arterial blood volume versus SIADH. Would recommend fluid restriction and follow sodium. 3. Hyperkalemia, resolved. 4. Hepatorenal syndrome. 5. Medication based on GFR appropriate. No indication for hypertonic saline. We will check labs every 5 to 6 hours. Job ID: [id number]
[2019-12-24 04:51] LABS: Anion Gap 11 mmol/L (10-20); BUN (Urea Nitrogen) 31 mg/dL (9.8-20.1); Calc. Creatinine Clearance 46 mL/min (70-130); Calcium 9.1 mg/dL (7.8-10.44); Carbon Dioxide 22 mmol/L (23-31); Chloride 97 mmol/L (98-107); Estimated GFR-MDRD 47; Glucose 80 mg/dL (83-110); Potassium 4.1 mmol/L (3.5-5.1); Sodium 126 mmol/L (136-145)
[2019-12-24] MEDS ORDERED: Levothyroxine 150 MCG TAB PO SCH (06:00)
[2019-12-24] MEDS: Loratadine 10 MG TAB PO SCH (08:35)
[2019-12-24] MEDS: Famotidine 20 MG TAB PO SCH (08:35)
[2019-12-24] MEDS: Furosemide 20 MG TAB PO SCH (08:35)
[2019-12-24] MEDS: HYDROcodone/Acetaminophen 10/325 mg Tablet PO SCH ×3 (08:36→20:46)
[2019-12-24] MEDS ORDERED: Sodium Chloride 0.9% 1,000 ML IV SCH (11:00)
--- NOTE | 2019-12-24 12:11 | PRG ---
DATE OF SERVICE: 12/24/2019 SUBJECTIVE: A 74-year-old female, being seen for acute kidney injury. The patient denies any nausea, vomiting, or chest pain. OBJECTIVE: General: The patient is awake and alert. Vital Signs: Afebrile, pulse 60, breathing 16, and blood pressure 142/67. HEENT: Head normocephalic and atraumatic. Eyes intact, no ulcers. Nose intact, no ulcers. Ears intact, no ulcers. Neck: Supple. No JVD. Chest: Symmetrical and clear. Cardiovascular: Shows S1 and S2, no rub, no murmur. Gastrointestinal: Abdomen is soft, bowel sounds positive. Extremities: Show no edema or ulcers. Skin: Shows no rash or petechiae. Musculoskeletal: Shows no joint swelling or stiffness. Genitourinary: Shows no Jama or CVA tenderness. Neurologic: Motor intact. Cranial nerves intact. LABORATORY DATA: Hemoglobin 12.5. Potassium 4.1, sodium 126, creatinine 1.1. ASSESSMENT: 1. Acute kidney injury with chronic kidney disease stage 3, improved. 2. Hypertension, stable. 3. Anemia, stable. 4. Hyponatremia. We will start the patient on normal saline at 30 per hour and recheck sodium at 4 p.m. Job ID: [id number]
--- NOTE | 2019-12-24 17:14 | PDOC.CPN ---
- Subjective Date: 12/24/19 Time: 17:14 Interval history: The pt seen and examined. No overnight events. No cardiac complaints. - Objective Allergies/Adverse Reactions: Allergies Allergy/AdvReac Type Severity Reaction Status Date / Time codeine Allergy Verified 10/24/19 05:37 Visit Medications: Current Medications Acetaminophen (Tylenol) 650 mg PO Q4H PRN PRN Reason: Headache/Fever/Mild Pain (1-3) Hydrocodone Bitart/Acetaminophen ([place] 10/325) 1 tab PO TID [facility] Last Admin: 12/24/19 15:10 Dose: 1 tab Famotidine (Pepcid) 20 mg PO DAILY [facility] Last Admin: 12/24/19 08:35 Dose: 20 mg Furosemide (Lasix) 20 mg PO DAILY [facility] Last Admin: 12/24/19 08:35 Dose: 20 mg Sodium Chloride (Normal Saline 0.9%) 1,000 mls @ 30 mls/hr IV .Q24H [facility] Last Admin: 12/24/19 11:17 Dose: 1,000 mls Lactulose (Lactulose) 10 gm PO DAILY [facility] Last Admin: 12/24/19 08:35 Dose: 10 gm Levothyroxine Sodium (Synthroid) 150 mcg PO 0600 [facility] Last Admin: 12/24/19 06:19 Dose: 150 mcg Loratadine (Claritin) 10 mg PO DAILY [facility] Last Admin: 12/24/19 08:35 Dose: 10 mg Ondansetron HCl (Zofran) 4 mg SLOW IVP Q6H PRN PRN Reason: Nausea/Vomiting Last Admin: 12/23/19 11:31 Dose: 4 mg Pregabalin (Lyrica) 75 mg PO HS [facility] Last Admin: 12/23/19 20:59 Dose: 75 mg Sodium Chloride (Flush - Normal Saline) 10 ml IVF Q12HR [facility] Last Admin: 12/24/19 08:37 Dose: 10 ml Sodium Chloride (Flush - Normal Saline) 10 ml IVF PRN PRN PRN Reason: Saline Flush Vital Signs & Weight: Vital Signs Temp Pulse Resp BP Pulse Ox 12/24/19 15:02 97.9 F 54 L 18 150/65 H 98 12/24/19 11:23 97.8 F 60 21 H 152/63 H 95 12/24/19 08:29 98.0 F 59 L 21 H 148/67 H 95 Weight 148 lb - Physical Exam General: alert & oriented x3 HEENT: mucus membranes moist Neck: supple neck Cardiac: regular rate and rhythm, S1/S2, systolic murmur Lungs: clear to auscultation Neuro: cranial nerve 2-12 intact Extremities: no edema - Labs Result Diagrams: 12/22/19 23:26 12/24/19 04:10 Troponin/CKMB Troponin I 0.030 ng/mL (< 0.028) H 12/23/19 03:33 - Telemetry Sinus rhythms and dysrhythmias: sinus rhythm - Assessment/Plan Assessment/Plan: 1. Symptomatic bradycardia - improving; asymptomatic today; cont. holding Nadalol for now; 2. Hyponatremia - showly improving; holding spironolactone and her Lasix is down to 20mg qd; managed by instrumentation technician 3. HTN - stable 4. LUZ on CKD stage 3 5. Cirrhosis 2/2 non-ETOH fatty liver disease 6. Severe - Echo on 12/23/2019 with severe with SHAYLA 0.66mmHg MAR reviewed * Echo on 12/23/2019 with EF 60-65%, grade I dd, mild WILLOW, mild MR, AR, TR, MD; and severe with SHAYLA 0.66cm * From Cardiac standpoint, the pt is stable d/c home once all doctors agree. Pt. seen and eval.by me. I agree with the A/P by the video game developer. I will discuss with GI and structural heart disease cardiology to see if pt. is even a candidate for a TAVR if indicated. If she is not a candidate then cardiac cath is not indicated. She is still relatively asymptomatic for severe .One of the leaflets seems more mobile and the echo may be an over estimation of the stenosis.If she is a candidate then a left and right heart cath will be indicated prior to TAVR. tom
--- NOTE | 2019-12-24 20:16 | PDOC.HOSPP ---
- Subjective Encounter Date: 12/24/19 Encounter Time: 08:00 Subjective: no overnight events. this morning feeling well, ambulating with no issues on room air. - Objective Vital Signs & Weight: Vital Signs (12 hours) Temp Pulse Resp BP Pulse Ox 12/24/19 15:02 97.9 F 54 L 18 150/65 H 98 12/24/19 11:23 97.8 F 60 21 H 152/63 H 95 12/24/19 08:29 98.0 F 59 L 21 H 148/67 H 95 Weight Weight 148 lb I&O: 12/23/19 12/24/19 12/25/19 06:59 06:59 06:59 Intake Total 680 360 Output Total 350 1600 700 Balance -350 -680 340 Result Diagrams: 12/22/19 23:26 12/24/19 04:10 Hospitalist ROS - Review of Systems Constitutional: denies: fever, chills, sweats, weakness, malaise, other Respiratory: denies: cough, dry, shortness of breath, hemoptysis, SOB with excertion, pleuritic pain, sputum, wheezing, other Cardiovascular: denies: chest pain, palpitations, orthopnea, paroxysmal noc. dyspnea, edema, light headedness, other Gastrointestinal: denies: nausea, vomiting, abdominal pain, diarrhea, constipation, melena, hematochezia, other - Medication Medications: Active Medications Generic Name Dose Route Start Last Admin Trade Name Freq PRN Reason Stop Dose Admin Hydrocodone Bitart/Acetaminophen 1 tab 12/23/19 21:00 12/24/19 15:10 [place] 10/325 PO 1 tab TID СВЕТЛАНА Administration Famotidine 20 mg 12/23/19 09:00 12/24/19 08:35 Pepcid PO 20 mg DAILY СВЕТЛАНА Administration Furosemide 20 mg 12/23/19 09:00 12/24/19 08:35 Lasix PO 20 mg DAILY СВЕТЛАНА Administration Lactulose 10 gm 12/23/19 09:00 12/24/19 08:35 Lactulose PO 10 gm DAILY СВЕТЛАНА Administration Levothyroxine Sodium 150 mcg 12/24/19 06:00 12/24/19 06:19 Synthroid PO 150 mcg 0600 СВЕТЛАНА Administration Loratadine 10 mg 12/23/19 09:00 12/24/19 08:35 Claritin PO 10 mg DAILY СВЕТЛАНА Administration Ondansetron HCl 4 mg 12/23/19 11:08 12/23/19 11:31 Zofran SLOW IVP 4 mg Q6H PRN Administration Nausea/Vomiting Pregabalin 75 mg 12/23/19 21:00 12/23/19 20:59 Lyrica PO 75 mg HS СВЕТЛАНА Administration Sodium Chloride 10 ml 12/23/19 21:00 12/24/19 08:37 Flush - Normal Saline IVF 10 ml Q12HR СВЕТЛАНА Administration - Exam General Appearance: NAD, awake alert Heart: RRR, no murmur, no gallops, no rubs, normal peripheral pulses Respiratory: CTAB, no wheezes, no rales, no ronchi, normal chest expansion, no tachypnea, normal percussion Gastrointestinal: soft, non-tender, non-distended, normal bowel sounds Extremities: 1+ LE edema Psychiatric: normal affect, normal behavior, A&O x 3 Hosp A/P - Plan #symptomatic bradycardia #severe aortic stenosis -per cardiology stopped beta maryam; no intervention for aortic stenosis #hypotonic hyponatremia #mild hypervolemia #LUZ -INR 1.4 suggesting liver dysfunction; responded to albumin; LUZ likely due to hepatorenal -spironolactone held as per cardiology -mildly hypervolemic on exam -stop IVF; volume restriction -conitnue lasix 20mg PO qd -renal function should be followed by pcp; may need to be started to trilipressin as outpatient ELOS: 1 midnight
[2019-12-24] MEDS ORDERED: Levothyroxine Sodium 112 MCG TAB PO SCH (20:37)
[2019-12-24] MEDS: Pregabalin 75 MG CAP PO SCH (20:46)
[2019-12-24 22:22] LABS: Anion Gap 12 mmol/L (10-20); BUN (Urea Nitrogen) 31 mg/dL (9.8-20.1); Calc. Creatinine Clearance 40 mL/min (70-130); Calcium 9.3 mg/dL (7.8-10.44); Carbon Dioxide 27 mmol/L (23-31); Chloride 99 mmol/L (98-107); Estimated GFR-MDRD 40; Glucose 91 mg/dL (83-110); Potassium 4.9 mmol/L (3.5-5.1); Sodium 133 mmol/L (136-145)
[2019-12-24] MEDS ORDERED: Dextrose 5% in Water 1,000 ML IV SCH (23:00)
[2019-12-25 05:00] LABS: Anion Gap 11 mmol/L (10-20); BUN (Urea Nitrogen) 29 mg/dL (9.8-20.1); Calc. Creatinine Clearance 46 mL/min (70-130); Calcium 9.1 mg/dL (7.8-10.44); Carbon Dioxide 24 mmol/L (23-31); Chloride 99 mmol/L (98-107); Estimated GFR-MDRD 49; Glucose 83 mg/dL (83-110); Sodium 130 mmol/L (136-145)
[2019-12-25] MEDS: HYDROcodone/Acetaminophen 10/325 mg Tablet PO SCH (06:08)
[2019-12-25] MEDS ORDERED: HYDROcodone/Acetaminophen 10/325 mg Tablet PO SCH (06:15)
[2019-12-25 08:34] VITALS: BP 125/61; TEMP 97.6
[2019-12-25] MEDS: Furosemide 20 MG TAB PO SCH (08:37)
[2019-12-25] MEDS: Famotidine 20 MG TAB PO SCH (08:37)
[2019-12-25] MEDS: Loratadine 10 MG TAB PO SCH (08:37)
--- NOTE | 2019-12-25 11:45 | PRG ---
DATE OF SERVICE: 12/25/2019 SUBJECTIVE: A 74-year-old female, being seen for acute kidney injury. The patient denies any nausea, vomiting, or chest pain. OBJECTIVE: GENERAL: The patient is awake and alert. VITAL SIGNS: Afebrile, pulse 66, breathing at 16, and blood pressure 125/61. HEENT: Head normocephalic and atraumatic. Eyes intact, no ulcers. Nose intact, no ulcers. Ears intact, no ulcers. NECK: Supple. No JVD. CHEST: Symmetrical and clear. CARDIOVASCULAR: Shows S1 and S2, no rub, no murmur. GASTROINTESTINAL: Abdomen is soft, bowel sounds positive. EXTREMITIES: Show no edema or ulcers. SKIN: Shows no rash or petechiae. MUSCULOSKELETAL: Shows no joint swelling or stiffness. GENITOURINARY: Shows no Jama or CVA tenderness. Neurologic: Motor intact. Cranial nerves intact. LABORATORY DATA: Hemoglobin 12.5. Sodium is 130. ASSESSMENT AND PLAN: 1. Hyponatremia, improved. 2. Hypertension, stable. 3. Acute kidney injury, resolved. Medication based on GFR appropriate. I will sign off on this patient. Please reconsult as needed. Job ID: [id number]
--- NOTE | 2019-12-27 09:46 | DIS ---
DATE OF ADMISSION: 12/23/2019 DATE OF DISCHARGE: 12/25/2019 HOSPITAL COURSE: Ms. Bocanegra is a 74-year-old female, with a medical history of cirrhosis, CKD-3, but the patient was noted to have heart rate of 40, Cardiology was consulted and the patient's Nadolol was held after which the patient promptly improved. In addition to that, the patient had a carryover CKD that was likely due to hyper (h-y-[id number]) hypernatremia. The patient's fluid intake was limited and she was diuresed gently after which the patient's sodium reached near normal levels. The patient was discharged home, hemodynamically stable, after ambulating on the floor with no lightheadedness or dizziness. She was discharged with extensive verbal and written instructions regarding her dietary restrictions as well as modifications in her medications. MEDICATIONS: CONTINUED MEDICATIONS: 1. Pregabalin. 2. Vitamin D3. 3. Coenzyme Q-10. 4. Magnesium. 5. Ferrous sulfate. 6. Loratadine. 7. . 8. Lactulose. 9. Hydrocodone. 10. Levothyroxine. 11. Pantoprazole. CHANGED MEDICATIONS: Lasix 20 mg daily to 20 mg daily p.r.n. edema. DISCONTINUED MEDICATIONS: 1. Nadolol. 2. Potassium gluconate. 3. Spironolactone (due to hypo (as in low) hyponatremia and lack of evidence of ascites). Job ID: [id number]
--- NOTE | 2019-12-28 09:16 | PQF ---
TIGRE SHAHID ADI [id number] [facility]-292 [id number] CLINICAL DOCUMENTATION CLARIFICATION FORM: POST DISCHARGE Addendum to original discharge summary date: ____ Late entry note date: __ DATE: 12/28/2019 ATTN:Fantasma Conroy Please exercise your independent, professional judgment in responding to the clarification form. Clinical indicators are provided on the bottom of this form for your review. Based on your clinical judgment, can you please specify etiology of patient's bradycardia? Please check appropriate box(s): [ ] LUZ [ ] Hyperkalemia [ ] Hyponatremia [ x ] Other diagnosis _nodalol (medication) [ ] Unable to determine For continuity of documentation, please document condition throughout progress notes and discharge summary. Thank You. CLINICAL INDICATORS - SIGNS / SYMPTOMS / LABS HP 12/22 "symptomatic bradycardia" ED notes 12/21 "She reports generalized weakness nd bradycardic with a rate of 40-45" HP 12/22 "lightheaded" HP 12/22 "she would feel suddenly faint and lightheaded and dizzy" HP 12/22 "patient's heart rate was noted to be as low as 30s" Consult 12/22 "possibly due to hyperkalemia or hyponatremia" Consult 12/22 "hyponatremia most likely due to decreased effective arterial blood volume vs SIADH" Vital Signs Pulse: 12/22=48 12/23=59 12/24=66 Labs 12/22: BUN=33 Creatinine=1.21 GFR=43 Labs Sodium: 12/2245=184 12/2493=226 Labs Potassium: 12/21=5.6 RISK FACTORS 74 years old female-ED notes 12/21 Cirrhosis-ED notes 12/21 HLD-ED notes 12/21 HTN-ED notes 12/21 hypothyroidism-ED notes 12/21 CKD stage 3-HP 12/22 Hepatorenal syndrome-HP 12/22 TREATMENTS: EKG-HP 12/22 Echocardiogram-Collected 12/22 Nephrology consult-Consult 12/22 Sodium Chloride 1000ml IV-OCT 07 IVF-OCT 07 (This form is maintained as a part of the permanent medical record) 2014 [employer], [place] [employer]. All Rights Reserved [email or web address] [phone] [email or web address]
--- NOTE | 2019-12-28 09:20 | PQF ---
TIGRE SHAHID ADI [id number] [facility]-292 [id number] CLINICAL DOCUMENTATION CLARIFICATION FORM: POST DISCHARGE Addendum to original discharge summary date: ____ Late entry note date: __ DATE: 12/28/2019 ATTN: Fantasma Conroy Please exercise your independent, professional judgment in responding to the clarification form. 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 Inappropriate Secretion of Antidiuretic Hormone) [ ] Other diagnosis [ ] Unable to determine CLINICAL INDICATORS - SIGNS / SYMPTOMS / LABS Consult 12/22 "hyponatremia most likely due to decreased effective arterial blood volume vs SIADH" HP 12/22 "symptomatic bradycardia" ED notes 12/21 "She reports generalized weakness and bradycardic with a rate of 40-45" 12/22 "lightheaded" 12/22 "she would feel suddenly faint and lightheaded and dizzy" 12/22 "patient's heart rate was noted to be as low as 30s" Consult 12/22 "possibly due to hyperkalemia or hyponatremia" Labs Sodium: 12/2255=063 12/2415=222 RISK FACTORS 74 years old female-ED notes 12/21 Cirrhosis-ED notes 12/21 HLD-ED notes 12/21 HTN-ED notes 12/21 hypothyroidism-ED notes 12/21 CKD stage 3-HP 12/22 Hepatorenal syndrome- 12/22 LUZ- 12/22 TREATMENTS: Nephrology consult-Consult 12/22 Sodium Chloride 1000ml IV-OCT 07 IVF-OCT 07 (This form is maintained as a part of the permanent medical record) 2014 [employer] All Rights Reserved [email or web address]
== END 2019-12-25 11:33 | disposition home or self-care (01) | DRG 308 ==
LOC: ERS 22:46 → 2NO 12-23 02:00
PROVIDERS: ADMIT Internal Medicine; ATTEND Internal Medicine
DX: R00.1 Bradycardia, unspecified (principal); K76.7 Hepatorenal syndrome; E87.1 Hypo-osmolality and hyponatremia; N17.9 Acute kidney failure, unspecified; K74.60 Unspecified cirrhosis of liver; E78.5 Hyperlipidemia, unspecified; G89.29 Other chronic pain; M10.9 Gout, unspecified; E03.9 Hypothyroidism, unspecified; M06.9 Rheumatoid arthritis, unspecified; I35.0 Nonrheumatic aortic (valve) stenosis; E87.70 Fluid overload, unspecified; G62.9 Polyneuropathy, unspecified; K21.9 Gastro-esophageal reflux disease without esophagitis; K75.81 Nonalcoholic steatohepatitis (NASH); I12.9 Hypertensive chronic kidney disease with stage 1 through stage 4 chronic kidney disease, or unspecified chronic kidney disease; N18.3 Chronic kidney disease, stage 3 (moderate); I45.10 Unspecified right bundle-branch block; E87.5 Hyperkalemia; R06.89 Other abnormalities of breathing; I08.1 Rheumatic disorders of both mitral and tricuspid valves; I37.1 Nonrheumatic pulmonary valve insufficiency; M19.90 Unspecified osteoarthritis, unspecified site; Z90.49 Acquired absence of other specified parts of digestive tract; Z90.710 Acquired absence of both cervix and uterus; Z90.722 Acquired absence of ovaries, bilateral; Z88.5 Allergy status to narcotic agent; Z79.899 Other long term (current) drug therapy; D63.1 Anemia in chronic kidney disease; T44.7X5A Adverse effect of beta-adrenoreceptor antagonists, initial encounter
CPT/HCPCS: 36415; 80048; 80053; 82533; 83735; 83930; 83935; 84300; 84443; 84484; 85025; 85610; 85730; 93005; 93306; 96374; J0461; J2405; P9047

== ENCOUNTER 2020-04-21 07:03 | Outpatient (CLI) | payer MEDICARE ==
--- NOTE | 2020-04-21 09:13 | ULT ---
US Hepatic Doppler HISTORY: Abnormal LFTs, cirrhosis COMPARISON: 11/25/2019 FINDINGS: The liver demonstrates coarse echotexture with the irregular surface consistent with findings of cirr hosis. No hepatic mass or abnormal biliary ductal dilatation is seen. There are shadowing gallstones without gallbladder wall thickening or pericholecystic fluid. The spleen is enlarged measu ring 17.2 cm in length. The pancreas is normal. The common duct measures 7 mm in diameter. No evidence of free fluid is seen. There is normal flow and spectral waveforms in the hepatic, portal and splenic vasculature. IMPRESSION: 1. Cirrhosis of the liver without evidence of liver mass. 2. Cholelithiasis. 3. Splenomegaly.
== END 2020-04-21 07:04 | disposition home or self-care (01) ==
LOC: BICULT 07:03
PROVIDERS: ATTEND Internal Medicine
DX: K75.81 Nonalcoholic steatohepatitis (NASH) (principal); R94.5 Abnormal results of liver function studies; R42 Dizziness and giddiness; K80.20 Calculus of gallbladder without cholecystitis without obstruction; R16.1 Splenomegaly, not elsewhere classified; K74.60 Unspecified cirrhosis of liver
CPT/HCPCS: 76705

== ENCOUNTER 2020-05-18 17:14 | Observation (INO) | payer MEDICARE, OTHER ==
[2020-05-18 18:43] LABS: #Eosinphils 0.2 thou/uL (0.0-0.7); #Lymphocytes 0.9 thou/uL (1.20-3.40); #Monocytes 0.5 thou/uL (0.11-0.59); #Neutrophils 3.8 thou/uL (1.40-6.50); %Basophils 0.1 % (0.0-1.0); %Eosinophils 3.2 % (0.0-10.0); %Lymphocytes 16.6 % (21.0-51.0); %Monocytes 9.8 % (0.0-10.0); %Neutrophils 70.3 % (42.0-75.0); Hemoglobin 10.8 g/dL (12.0-16.0); Mean Corpuscular Volume 88.5 fL (78.0-98.0); Mean Platelet Volume 9.7 fL (7.4-10.4); Platelet Count 60 thou/uL (130-400); RBC Distribution Width 12.6 % (11.5-14.5); Red Blood Cell (RBC) Count 3.49 mill/uL (4.20-5.40); White Blood Cell (WBC) Count 5.4 thou/uL (4.8-10.8)
[2020-05-18 19:11] LABS: ALT (SGPT) 22 U/L (8-55); AST (SGOT) 29 U/L (5-34); Albumin 3.2 g/dL (3.4-4.8); Alkaline Phosphatase 104 U/L (40-110); Anion Gap 13 mmol/L (10-20); BUN (Urea Nitrogen) 41 mg/dL (9.8-20.1); Bilirubin, Total 1.4 mg/dL (0.2-1.2); Calc. Creatinine Clearance 0 mL/min (70-130); Calcium 8.8 mg/dL (7.8-10.44); Carbon Dioxide 22 mmol/L (23-31); Chloride 98 mmol/L (98-107); Estimated GFR-MDRD 37; Globulin 3.5 g/dL (2.4-3.5); Glucose 128 mg/dL (83-110); Potassium 5.1 mmol/L (3.5-5.1); Protein, Total 6.7 g/dL (6.0-8.3); Sodium 128 mmol/L (136-145)
--- NOTE | 2020-05-18 19:34 | RAD ---
PORTABLE CHEST: 05/18/20 HISTORY: Shaking, syncope. COMPARISON: 04/30/17 exam. Heart size is within normal limits for portable technique with a pacemaker. The lungs are clear of an y infiltrative process. IMPRESSION: No active intrathoracic disease. POS: JOSELUIS
--- NOTE | 2020-05-18 20:40 | CT ---
CT OF BRAIN PERFORMED WITHOUT CONTRAST ENHANCEMENT: 05/18/20 HISTORY: Altered mental status. COMPARISON: 08/03/19 exam. Mild ventricular and sulcal prominence which is fairly age appropriate. There are no signs of intrace rebral hemorrhage or extra-axial fluid collections. The mastoid air cells are clear. The right fronta l and ethmoid air cells are almost completely opacified. IMPRESSION: No acute intracranial abnormalities. POS: JOSELUIS
[2020-05-18 20:48] LABS: Bilirubin Negative (Negative); Blood, Urine Negative (Negative); Clarity Clear (Clear); Glucose, Urine (Dipstick) Normal (Negative); Ketone, Urine Negative (Negative); Leukocyte 500 Leu/uL (Negative); Nitrite Negative (Negative); Protein, Urine (Dipstick) Negative (Neg-Trace); RBC/HPF 0-3 HPF (0-3); Squamous Epithelial 0-3 HPF (0-3); Urobilinogen Normal mg/dL (Less than 2); WBC/HPF 21-50 HPF (0-3)
[2020-05-18 20:51] LABS: Bacteria/HPF Rare-Few HPF (None Seen)
[2020-05-18] MEDS ORDERED: cefTRIAXone\\ROCEPHIN 1 GM VIAL ONE (22:36)
--- NOTE | 2020-05-18 22:58 | PDOC.HHP ---
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 Patient is on lactulose for hepatic encephalopathy prophylaxis but has never experienced confusion like this before. Patient report her last meal was breakfast and since then has not eaten or drank any thing. She denied any limb weakness. She denied any diarrhea or nausea or vomiting. Urinalysis in the emergency department demonstrated some evidence of UTI. Head CT is negative for any acute process. Ammonia level was 60. Her sodium level was 128. Patient at baseline takes hydrocodone 3 times a day for chronic back pain. No new medication changes. Patient is placed on observation for further evaluation for altered mental status. Hospitalist ROS - Review of Systems Other: Except as documented, all other systems reviewed and negative. - Medication Medications: Medication Instructions Recorded Confirmed Type Pregabalin [Lyrica] 75 mg PO HS 11/24/16 05/19/20 History Cholecalciferol (Vitamin D3) 2,000 unit PO DAILY 04/30/17 05/19/20 History [Vitamin D3] Ferrous Sulfate 325 mg PO BID 04/30/17 05/19/20 History Magnesium 250 mg PO DAILY 04/30/17 05/19/20 History Multivitamin [Daily Multiple 1 tablet PO DAILY 04/30/17 05/19/20 History Vitamin] Ubidecarenone [Co Q-10] 100 mg PO DAILY 04/30/17 05/19/20 History HYDROcodone Bit/APAP 10/325 [[place]] 1 tab PO TID 12/23/19 05/19/20 History Lactulose 10 GM/15ML Oral Mel 15 gm PO DAILY 12/23/19 05/19/20 History [Lactulose] Levothyroxine Sodium [Synthroid] 125 mcg PO DAILY 12/23/19 05/19/20 History Loratadine [Claritin] 10 mg PO DAILY 12/23/19 05/19/20 History Vivisal 1 tablet PO DAILY 12/23/19 05/19/20 History Furosemide [Lasix] 20 mg PO DAILY PRN #60 12/25/19 05/19/20 Rx Pantoprazole [Protonix] 40 mg PO DAILY #30 tablet 12/25/19 05/19/20 Rx Amlodipine [Norvasc] 2.5 mg PO DAILY 05/19/20 05/19/20 History Nadolol [Corgard] 20 mg PO DAILY 05/19/20 05/19/20 History Spironolactone 50 mg PO DAILY 05/19/20 05/19/20 History Hospitalist History - Past Medical History Cardiac: reports: Other (Bradycardia) [employer]: reports: Peripheral neuropathy Gastrointestinal: reports: GERD Hepatobiliary: reports: Cirrhosis Endocrine: reports: Hypothyroidism - Past Surgical History Past Surgical History: reports: Hysterectomy, Hernia Repair, Tonsillectomy Other Surgical History: Pacemaker placement - Family History Family History: reports: cancer (Sister had breast cancer), cerebrovascular accident (Mother) - Social History Smoking Status: Never smoker Alcohol: reports: None Drugs: reports: none - Exam General Appearance: NAD General - other findings: Awake, intermittently confused. Eye: PERRL ENT: normocephalic atraumatic, no oropharyngeal lesions, moist mucosa Neck: supple, symmetric, no JVD, no thyromegaly Heart: RRR, no murmur, no gallops, normal peripheral pulses Respiratory: CTAB, no wheezes, no rales, no ronchi Gastrointestinal: soft, non-tender, non-distended, normal bowel sounds Extremities: no cyanosis, 1+ LE edema Skin: normal turgor, no rashes Neurological: cranial nerve grossly intact, no weakness, no focal deficits Musculoskeletal: normal tone, normal strength Psychiatric: normal affect, normal behavior, A&O x 3 Psychiatric - other findings: Intermittently confused. Hospitalist Results - Labs Result Diagrams: 05/18/20 18:28 05/18/20 18:28 Lab results: WBC 5.4 thou/uL (4.8-10.8) 05/18/20 18:28 Hgb 10.8 g/dL (12.0-16.0) L 05/18/20 18: Hct 30.9 % (36.0-47.0) L 05/18/20 18:28 MCV 88.5 fL (78.0-98.0) 05/18/20 18:28 Plt Count 60 thou/uL (130-400) L 05/18/20 18: Neutrophils % 70.3 % (42.0-75.0) 05/18/20 18:28 Sodium 128 mmol/L (136-145) L 05/18/20 18:28 Potassium 5.1 mmol/L (3.5-5.1) 05/18/20 18:28 Chloride 98 mmol/L (98-107) 05/18/20 18:28 Carbon Dioxide 22 mmol/L (23-31) L 05/18/20 18:28 BUN 41 mg/dL (9.8-20.1) H 05/18/20 18:28 Creatinine 1.39 mg/dL (0.6-1.1) H 05/18/20 18:28 Glucose 128 mg/dL (83-110) H 05/18/20 18: Calcium 8.8 mg/dL (7.8-10.44) 05/18/20 18: Total Bilirubin 1.4 mg/dL (0.2-1.2) H 05/18/20 18:28 AST 29 U/L (5-34) 05/18/20 18: ALT 22 U/L (8-55) 05/18/20 18:28 Alkaline Phosphatase 104 U/L (40-110) 05/18/20 18: Ammonia 60 umol/L (18-72) 05/18/20 19:15 Serum Total Protein 6.7 g/dL (6.0-8.3) 05/18/20 18:28 Albumin 3.2 g/dL (3.4-4.8) L 05/18/20 18:28 Urine Ketones Negative mg/dL (Negative) 05/18/20 20:30 Urine Blood Negative (Negative) 05/18/20 20:30 Urine Nitrite Negative (Negative) 05/18/20 20:30 Ur Leukocyte Esterase 500 Giuseppe/uL (Negative) A 05/18/20 20:30 Urine RBC 0-3 HPF (0-3) 05/18/20 20:30 Urine WBC 21-50 HPF (0-3) A 05/18/20 20:30 Ur Squamous Epith Cells 0-3 HPF (0-3) 05/18/20 20:30 Urine Bacteria Rare-Few HPF (None Seen) 05/18/20 20:30 - Radiology Interpretation CT scan - head Status: report reviewed by me (No acute intracranial process.) Hospitalist Jessica&P A/P - Problem (1) Metabolic encephalopathy Code(s): G93.41 - METABOLIC ENCEPHALOPATHY Status: Acute (2) Acute renal failure Status: Acute (3) UTI (urinary tract infection) Status: Acute (4) Cirrhosis Code(s): K74.60 - UNSPECIFIED CIRRHOSIS OF LIVER Status: Chronic (5) Hyponatremia Code(s): E87.1 - HYPO-OSMOLALITY AND HYPONATREMIA Status: Acute (6) Thrombocytopenia Code(s): D69.6 - THROMBOCYTOPENIA, UNSPECIFIED Status: Chronic - Plan Plan: Because of patient mental status probably related to hepatic encephalopathy versus UTI. Hyponatremia may also be contributing. Patient placed under observation. Treat hyponatremia with normal saline infusion. Restrict fluids to 1800 mils per day. Treat UTI with IV Rocephin Follow urine culture. Treat hepatic encephalopathy with oral lactulose and rifaximin. Neurochecks.
[2020-05-19] MEDS: Sodium Chloride 0.9% 1,000 ML IV SCH ×2 (01:32→13:06)
[2020-05-19 02:36] VITALS: BMI 28.3
--- NOTE | 2020-05-19 06:42 | PDOC.FMACP ---
Advance Care Planning - Problem (1) Metabolic encephalopathy Status: Acute Code(s): G93.41 - METABOLIC ENCEPHALOPATHY (2) Acute renal failure Status: Acute (3) UTI (urinary tract infection) Status: Acute (4) Cirrhosis Status: Chronic Code(s): K74.60 - UNSPECIFIED CIRRHOSIS OF LIVER (5) Hyponatremia Status: Acute Code(s): E87.1 - HYPO-OSMOLALITY AND HYPONATREMIA (6) Thrombocytopenia Status: Chronic Code(s): D69.6 - THROMBOCYTOPENIA, UNSPECIFIED - Note Summary: Advanced Care Planning was discussed. The diagnosis, prognosis and goals of care were discussed. Appropriate forms and documentation to accomplish the goals of care were discussed. All questions were answered. Daughter is the medical power of contract attorney. She wishes to be DNR. Patient has a living will. Time Spent (mins): 16
[2020-05-19 06:44] LABS: Hemoglobin 9.8 g/dL (12.0-16.0); Mean Corpuscular HGB CONC 34.8 g/dL (32.0-36.0); Mean Corpuscular Hemoglobin 31.2 pg (27.0-31.0); Mean Corpuscular Volume 89.6 fL (78.0-98.0); Mean Platelet Volume 9.9 fL (7.4-10.4); Platelet Count 55 thou/uL (130-400); RBC Distribution Width 12.8 % (11.5-14.5); Red Blood Cell (RBC) Count 3.13 mill/uL (4.20-5.40); White Blood Cell (WBC) Count 3.1 thou/uL (4.8-10.8)
[2020-05-19 06:55] LABS: Band 3 % (5-11); Eosinophils 6 % (0-10); Lymphocytes 25 % (21-51); MDiff Complete? YES; Monocytes 9 % (0-10); Neutrophil 57 % (42-75); Platelet Morphology Comment Appears Decreased
[2020-05-19 07:15] LABS: ALT (SGPT) 17 U/L (8-55); AST (SGOT) 26 U/L (5-34); Albumin 2.9 g/dL (3.4-4.8); Alkaline Phosphatase 90 U/L (40-110); Anion Gap 9 mmol/L (10-20); BUN (Urea Nitrogen) 35 mg/dL (9.8-20.1); Bilirubin, Total 0.8 mg/dL (0.2-1.2); Calc. Creatinine Clearance 48 mL/min (70-130); Calcium 8.3 mg/dL (7.8-10.44); Carbon Dioxide 23 mmol/L (23-31); Chloride 104 mmol/L (98-107); Estimated GFR-MDRD 51; Globulin 3.3 g/dL (2.4-3.5); Glucose 84 mg/dL (83-110); Potassium 4.3 mmol/L (3.5-5.1); Protein, Total 6.2 g/dL (6.0-8.3); Sodium 132 mmol/L (136-145)
[2020-05-19] MEDS ORDERED: Rifaximin 550 MG TAB PO SCH (09:00)
[2020-05-19 11:22] VITALS: BP 142/82; TEMP 98
[2020-05-19] MEDS ORDERED: Furosemide 20 MG TAB PO PRN (12:45)
[2020-05-19 12:53] LABS: SARS-CoV-2 MS2 Positive; SARS-CoV-2 N Gene Negative; SARS-CoV-2 S Gene Negative; SARS-CoV-2 by NAA Not Detected (NotDetected); SARS-CoV-2 orf1ab Negative
[2020-05-19] MEDS ORDERED: HYDROcodone/Acetaminophen 10/325 mg Tablet PO SCH (14:00)
[2020-05-19] MEDS ORDERED: Ferrous Sulfate 325 MG TAB PO SCH (21:00)
[2020-05-19] MEDS ORDERED: Pregabalin 75 MG CAP PO SCH (21:00)
[2020-05-19] MEDS ORDERED: Non-Formulary Item 1 EACH (Ferrous Sulfate [Ferrous Sulfate] 325 MG Tablet) PO SCH (21:00)
[2020-05-19] MEDS ORDERED: cefTRIAXone\\ROCEPHIN 1 GM in Sodium Chloride 0.9% 100 ML IVPB SCH (23:00)
[2020-05-20] MEDS ORDERED: Levothyroxine Sodium 125 MCG TAB PO SCH (06:00)
[2020-05-20] MEDS ORDERED: Non-Formulary Item 1 EACH (Ubidecarenone [Co Q-10] 100 MG Capsule) PO SCH (09:00)
[2020-05-20] MEDS ORDERED: Non-Formulary Item 1 EACH (Spironolactone [Spironolactone] 50 MG Tablet) PO SCH (09:00)
[2020-05-20] MEDS ORDERED: Nadolol 40 MG TAB PO SCH (09:00)
[2020-05-20] MEDS ORDERED: Loratadine 10 MG TAB PO SCH (09:00)
[2020-05-20] MEDS ORDERED: Spironolactone 25 MG TAB PO SCH (09:00)
[2020-05-20] MEDS ORDERED: Non-Formulary Item 1 EACH (Cholecalciferol (Vitamin D3) [Vitamin D3] 2,000 UNIT Capsule) PO SCH (09:00)
[2020-05-20] MEDS ORDERED: Non-Formulary Item 1 EACH (Nadolol [Corgard] 20 MG Tab) PO SCH (09:00)
[2020-05-20] MEDS ORDERED: Multivit, Therapeutic 1 TAB PO SCH (09:00)
[2020-05-20] MEDS ORDERED: Amlodipine 5 MG TAB PO SCH (09:00)
[2020-05-20] MEDS ORDERED: Non-Formulary Item 1 EACH (Magnesium [Magnesium] 250 MG Tablet) PO SCH (09:00)
[2020-05-20] MEDS ORDERED: Levothyroxine 150 MCG TAB PO SCH (09:00)
[2020-05-20] MEDS ORDERED: Non-Formulary Item 1 EACH (Multivitamin [Daily Multiple Vitamin] 1 EACH Tablet) PO SCH (09:00)
[2020-05-20] MEDS ORDERED: Cholecalciferol 1,000 UNITS (25 MCG) TAB PO SCH (09:00)
[2020-05-20] MEDS ORDERED: Ubidecarenone 50 MG CAP PO SCH (09:00)
[2020-05-20] MEDS ORDERED: Magnesium Oxide 250 MG TAB PO SCH (09:00)
--- NOTE | 2020-05-25 09:28 | DIS ---
DATE OF ADMISSION: 05/19/2020 DATE OF DISCHARGE: 05/19/2020 DISCHARGE DIAGNOSES: 1. Acute metabolic encephalopathy, multifactorial including iatrogenic in conjunction with sleep deprivation, resolved. 2. Urinary tract infection, suspected organism not identified. 3. Hepatic cirrhosis secondarily to nonalcoholic fatty liver disease, stable. 4. Hyponatremia, chronic. 5. Thrombocytopenia, chronic. 6. Acute kidney injury on chronic kidney disease, stage 3. CONSULTATIONS: None. PERTINENT LABORATORY AND X-RAY FINDINGS: Sodium ranged between 128 to 132, creatinine ranged between 1.06 to 1.39, estimated GFR ranged between 37 to 51. Ammonia level 60. TSH 2.88. CBC showed a hemoglobin ranging between 9.8 to 10.8, platelet count ranged between 55 to 60. Urinalysis positive for leukocyte esterase and urine microscopy showed 21 to 50 wbc's per high-power field. COVID-19 PCR not detected on 05/19/2020. Urine culture dated 05/18/2020, pending. CT of the brain without contrast dated 05/18/2020, showed no acute intracranial process. Portable chest x-ray dated 05/18/2020, showed no acute cardiopulmonary process. Pacemaker device noted in the left upper chest wall. HOSPITAL COURSE: The patient was observed on the medical floor after initially presenting with altered mental status. The patient with mild confusion, undergoing metabolic evaluation showing evidence of mild urinary tract infection, treated with IV Rocephin and low volume IV fluids. The patient was also noted with chronic medications including [place] and Lyrica in the context of chronic hepatic cirrhosis due to nonalcoholic fatty liver. Serum ammonia level was normal and the metabolic screening was reassuring. The patient received general supportive management with overall returned to baseline mental status prior to discharge. I have examined the patient at the time of discharge and discussed followup instructions. The patient verbalized understanding and agreement, ready for discharge on 05/19/2020. DISCHARGE MEDICATIONS: 1. Claritin 10 mg p.o. daily. 2. Coenzyme Q10 100 mg p.o. daily. 3. Corgard 20 mg p.o. daily. 4. Multivitamin 1 tablet p.o. daily. 5. Ferrous sulfate 325 mg p.o. b.i.d. 6. Lactulose 15 g p.o. daily. 7. Lyrica 75 mg p.o. at bedtime. 8. Magnesium 250 mg p.o. daily. 9. [place] 10/325 mg 1 tablet p.o. q.8 hours p.r.n. pain. 10. Norvasc 2.5 mg p.o. daily. 11. Spironolactone 50 mg p.o. daily. 12. Levothyroxine 125 mcg p.o. daily. 13. Vitamin D3 2000 units p.o. daily. 14. Viviscal 1 tablet p.o. daily. 15. Lasix 20 mg p.o. daily. 16. Omnicef 300 mg p.o. b.i.d. x3 days. 17. Protonix 40 mg p.o. daily. FOLLOWUP: The patient may follow up with her primary care provider, Dr. Gavin Cantu. CONDITION ON DISCHARGE: Stable. ACTIVITY: Ad-sherry. DIET: Heart healthy. CODE STATUS: Full. DISPOSITION: To home on 05/19/2020. Job ID: [id number]
== END 2020-05-19 16:08 | disposition home or self-care (01) ==
LOC: ERS 17:14 → T4-A 05-19 00:53
PROVIDERS: ADMIT Internal Medicine; ATTEND Internal Medicine
DX: G93.41 Metabolic encephalopathy (principal); N17.9 Acute kidney failure, unspecified; N39.0 Urinary tract infection, site not specified; K76.0 Fatty (change of) liver, not elsewhere classified; K74.60 Unspecified cirrhosis of liver; E87.1 Hypo-osmolality and hyponatremia; D69.6 Thrombocytopenia, unspecified; K72.90 Hepatic failure, unspecified without coma; G62.9 Polyneuropathy, unspecified; K21.9 Gastro-esophageal reflux disease without esophagitis; E03.9 Hypothyroidism, unspecified; Z66 Do not resuscitate; Z79.899 Other long term (current) drug therapy; Z88.5 Allergy status to narcotic agent; Z95.0 Presence of cardiac pacemaker; Z20.828 Contact with and (suspected) exposure to other viral communicable diseases
CPT/HCPCS: 70450; 71045; 80053; 82140; 85007; 85027; 87077; 87086; 87186; 93005; G0378 ×2; U0003; 36415; 81003; 81015; 84443; 85025; 87635; 96365; J0696

== ENCOUNTER 2020-07-22 11:20 | Outpatient (CLI) | payer MEDICARE ==
--- NOTE | 2020-07-22 12:41 | MRI ---
MR the lumbar spine without contrast: 07/22/2020 History: Low back pain, prior lumbar spine surgery COMPARISON: None. TECHNIQUE: Multiplanar multisequence MR images were obtained of lumbar spine without IV contrast FINDINGS: On the basis of 5 lumbar type vertebral bodies, conus medullaris terminates at theL1-2 level. Sagittal STIR imaging demonstrates no focal area of osseous marrow edema. T12-L1:Bilateral facet hypertrophy. No significant central canal or neural foraminal stenosis. Minima l disc bulge. L1-2:No central canal or neural foraminal stenosis. L2-3:Disc desiccation. Mild bilateral facet hypertrophy. No significant central canal or neural perla inal stenosis. L3-4:There is disc space narrowing with disc desiccation and disc bulge. There is a central/left para central annular tear with an associated small disc protrusion. There is mild central canal stenosis/right lateral recess stenosis. Mild bilateral facet hypertrophy. Mild right neural foraminal stenosis. No significant left neural foraminal stenosis. L4-5:Mild bilateral facet hypertrophy. Disc desiccation. Vacuum disc formation. No significant centra l canal or neural foraminal stenosis. L5-S1:There is disc space narrowing and disc desiccation with disc bulge. No central canal stenosis. Mild bilateral facet hypertrophy. No significant neural foraminal stenosis. Image retroperitoneal structures demonstrateno acute findings. There is small volume fluid in the reg ion of the paracolic gutters bilaterally, right greater than left. Spleen appears enlarged.. IMPRESSION: Degenerative changes as detailed above, most prominent at L3-4 in the right paracentral region.
== END 2020-07-22 11:21 | disposition home or self-care (01) ==
LOC: MRI 11:20
PROVIDERS: ATTEND Anesthesiology Pain Medicine
DX: M48.062 Spinal stenosis, lumbar region with neurogenic claudication (principal); M47.816 Spondylosis without myelopathy or radiculopathy, lumbar region
CPT/HCPCS: 72148

== ENCOUNTER 2021-03-04 10:20 | Inpatient (IN) | payer MEDICARE ==
[2021-03-04] MEDS ORDERED: Iopamidol-370 76% 500 ML 1 ML ONE (10:48)
[2021-03-04] MEDS ORDERED: Morphine 4 MG/ML VIAL ONE (11:52)
[2021-03-04] MEDS ORDERED: Ondansetron PF 4 MG/2 ML Vial ONE ×2 (11:52→20:21)
[2021-03-04 12:41] LABS: #Eosinphils 0.1 thou/uL (0.0-0.7); #Lymphocytes 0.7 thou/uL (1.20-3.40); #Monocytes 0.4 thou/uL (0.11-0.59); #Neutrophils 5.6 thou/uL (1.40-6.50); %Basophils 0.3 % (0.0-1.0); %Eosinophils 1.3 % (0.0-10.0); %Lymphocytes 10.8 % (21.0-51.0); %Monocytes 6.2 % (0.0-10.0); %Neutrophils 81.5 % (42.0-75.0); Hemoglobin 12.3 g/dL (12.0-16.0); Mean Corpuscular HGB CONC 35.8 g/dL (32.0-36.0); Mean Corpuscular Hemoglobin 30.2 pg (27.0-31.0); Mean Corpuscular Volume 84.4 fL (78.0-98.0); Mean Platelet Volume 9.9 fL (7.4-10.4); Platelet Count 45 thou/uL (130-400); RBC Distribution Width 12.6 % (11.5-14.5); Red Blood Cell (RBC) Count 4.08 mill/uL (4.20-5.40); White Blood Cell (WBC) Count 6.8 thou/uL (4.8-10.8)
[2021-03-04 12:59] LABS: ALT (SGPT) 15 U/L (8-55); AST (SGOT) 29 U/L (5-34); Albumin 2.7 g/dL (3.4-4.8); Alkaline Phosphatase 120 U/L (40-110); Anion Gap 10 mmol/L (10-20); BUN (Urea Nitrogen) 15 mg/dL (9.8-20.1); Bilirubin, Total 2.3 mg/dL (0.2-1.2); Calc. Creatinine Clearance 0 mL/min (70-130); Calcium 7.2 mg/dL (7.8-10.44); Carbon Dioxide 19 mmol/L (23-31); Chloride 95 mmol/L (98-107); Globulin 3.3 g/dL (2.4-3.5); Glucose 103 mg/dL (83-110); Sodium 121 mmol/L (136-145)
[2021-03-04 14:51] LABS: Bacteria/HPF 4+ HPF (None Seen); Bilirubin Negative (Negative); Blood, Urine 2+ (Negative); Clarity Turbid (Clear); Glucose, Urine (Dipstick) Normal (Negative); Ketone, Urine Negative (Negative); Leukocyte 500 Leu/uL (Negative); Nitrite Negative (Negative); Protein, Urine (Dipstick) 10 mg/dL (Neg-Trace); RBC/HPF 21-50 HPF (0-3); Specific Gravity, Urine 1.006 (1.002-1.036); Squamous Epithelial 0-3 HPF (0-3); Transitional Epithelial 0-3 HPF (None Seen); Urobilinogen Normal mg/dL (Less than 2); WBC/HPF Greater than 50 HPF (0-3); pH, Urine 5.5 (5.0-9.0)
[2021-03-04] MEDS ORDERED: Sodium Chloride 0.9% 1,000 ML IV SCH (15:15)
[2021-03-04] MEDS ORDERED: Doxycycline 100 MG in Syringe 0 ML IVPB SCH (15:31)
[2021-03-04] MEDS ORDERED: cefTRIAXone\\ROCEPHIN 1 GM in Sodium Chloride 0.9% 100 ML IVPB SCH (16:00)
[2021-03-04] MEDS ORDERED: cefTRIAXone\\ROCEPHIN 1 GM VIAL ONE (16:48)
[2021-03-04 19:02] LABS: Anion Gap 11 mmol/L (10-20); BUN (Urea Nitrogen) 15 mg/dL (9.8-20.1); Calc. Creatinine Clearance 0 mL/min (70-130); Calcium 7.9 mg/dL (7.8-10.44); Carbon Dioxide 19 mmol/L (23-31); Chloride 92 mmol/L (98-107); Glucose 115 mg/dL (83-110); Potassium 3.3 mmol/L (3.5-5.1)
[2021-03-04 19:08] LABS: Sodium 119 mmol/L (136-145)
[2021-03-04] MEDS ORDERED: traMADol HCl 50 MG TAB PO PRN (19:33)
[2021-03-04] MEDS: HYDROcodone/Acetaminophen 10/325 mg Tablet PO SCH (20:16)
[2021-03-04] MEDS: Ondansetron PF 4 MG/2 ML Vial IVP PRN (20:18)
[2021-03-04] MEDS ORDERED: HYDROcodone/Acetaminophen 10/325 mg Tablet ONE (20:21)
[2021-03-04] MEDS: Pregabalin 75 MG CAP PO SCH (22:02)
[2021-03-04 23:58] VITALS: BMI 29.5
[2021-03-05] MEDS: HYDROcodone/Acetaminophen 10/325 mg Tablet PO SCH ×3 (04:17→20:39)
[2021-03-05] MEDS ORDERED: HYDROcodone/Acetaminophen 10/325 mg Tablet PO SCH (06:00)
[2021-03-05] MEDS: Levothyroxine Sodium 125 MCG TAB PO SCH (06:11)
[2021-03-05 06:15] LABS: Anion Gap 9 mmol/L (10-20); BUN (Urea Nitrogen) 16 mg/dL (9.8-20.1); Calc. Creatinine Clearance 66 mL/min (70-130); Calcium 8.3 mg/dL (7.8-10.44); Carbon Dioxide 22 mmol/L (23-31); Chloride 97 mmol/L (98-107); Glucose 88 mg/dL (83-110); Potassium 3.3 mmol/L (3.5-5.1); Sodium 125 mmol/L (136-145)
[2021-03-05] MEDS: Loratadine 10 MG TAB PO SCH (08:01)
[2021-03-05] MEDS ORDERED: Potassium Chloride 20 MEQ TAB PO SCH (09:00)
[2021-03-05] MEDS ORDERED: Furosemide 40 MG/4 ML VIAL SLOW IVP SCH (10:15)
[2021-03-05] MEDS ORDERED: Cefdinir 300 MG CAP PO SCH ×2 (10:30→21:00)
[2021-03-05] MEDS: Acetaminophen 325 MG TAB PO PRN (11:15)
[2021-03-05 11:18] LABS: Sodium 127 mmol/L (136-145)
[2021-03-05 16:19] LABS: SARS-CoV-2 PCR by NAA Not Detected (NotDetected)
[2021-03-05 18:30] LABS: Sodium 130 mmol/L (136-145)
[2021-03-05 18:36] LABS: Anion Gap 12 mmol/L (10-20); BUN (Urea Nitrogen) 16 mg/dL (9.8-20.1); Calc. Creatinine Clearance 67 mL/min (70-130); Calcium 8.9 mg/dL (7.8-10.44); Carbon Dioxide 19 mmol/L (23-31); Chloride 102 mmol/L (98-107); Glucose 90 mg/dL (83-110); Potassium 4.1 mmol/L (3.5-5.1); Sodium 129 mmol/L (136-145)
[2021-03-05] MEDS ORDERED: Aspirin 325 MG TAB PO SCH (19:15)
[2021-03-05 19:22] LABS: #Eosinphils 0.1 thou/uL (0.0-0.7); #Lymphocytes 0.7 thou/uL (1.20-3.40); #Monocytes 0.6 thou/uL (0.11-0.59); #Neutrophils 5.1 thou/uL (1.40-6.50); %Basophils 0.3 % (0.0-1.0); %Eosinophils 1.9 % (0.0-10.0); %Lymphocytes 10.4 % (21.0-51.0); %Monocytes 8.8 % (0.0-10.0); %Neutrophils 78.5 % (42.0-75.0); Hemoglobin 13.1 g/dL (12.0-16.0); Mean Corpuscular HGB CONC 35.7 g/dL (32.0-36.0); Mean Corpuscular Hemoglobin 30.6 pg (27.0-31.0); Mean Corpuscular Volume 85.7 fL (78.0-98.0); Mean Platelet Volume 10.4 fL (7.4-10.4); Platelet Count 48 thou/uL (130-400); Red Blood Cell (RBC) Count 4.27 mill/uL (4.20-5.40); White Blood Cell (WBC) Count 6.5 thou/uL (4.8-10.8)
[2021-03-05] MEDS ORDERED: Gabapentin 300 MG CAP PO SCH ×2 (19:30→23:59)
[2021-03-05 19:37] LABS: Lactic Acid 1.5 mmol/L (0.5-2.2)
[2021-03-05 19:41] LABS: ALT (SGPT) 19 U/L (8-55); AST (SGOT) 36 U/L (5-34); Albumin 3.3 g/dL (3.4-4.8); Alkaline Phosphatase 135 U/L (40-110); Anion Gap 13 mmol/L (10-20); BUN (Urea Nitrogen) 16 mg/dL (9.8-20.1); Bilirubin, Total 1.2 mg/dL (0.2-1.2); Calc. Creatinine Clearance 63 mL/min (70-130); Calcium 8.7 mg/dL (7.8-10.44); Carbon Dioxide 19 mmol/L (23-31); Chloride 101 mmol/L (98-107); Glucose 125 mg/dL (83-110); Magnesium 1.6 mg/dL (1.6-2.6); Potassium 4.3 mmol/L (3.5-5.1); Protein, Total 7.3 g/dL (5.8-8.1); Sodium 129 mmol/L (136-145)
[2021-03-05] MEDS ORDERED: Magnesium 2 GM/50 ML 2 GM in Premix Bag 1 BAG IVPB SCH (20:00)
[2021-03-05] MEDS: Dextrose 5% in Water 500 ML IV SCH (20:38)
[2021-03-05] MEDS: Doxycycline 100 MG CAP PO SCH (20:38)
[2021-03-05] MEDS: Pregabalin 75 MG CAP PO SCH (20:38)
[2021-03-05] MEDS ORDERED: Melatonin 3 MG TAB PO PRN (21:01)
[2021-03-05 21:56] LABS: CKMB 4.1 ng/mL (0-6.6)
[2021-03-06] MEDS ORDERED: rOPINIRole HCl 0.25 MG TAB PO SCH (01:30)
[2021-03-06] MEDS: HYDROcodone/Acetaminophen 10/325 mg Tablet PO SCH ×3 (04:26→20:27)
[2021-03-06] MEDS: Levothyroxine Sodium 125 MCG TAB PO SCH (04:35)
[2021-03-06] MEDS: Dextrose 5% in Water 500 ML IV SCH (05:55)
[2021-03-06 07:26] LABS: ALT (SGPT) 19 U/L (8-55); AST (SGOT) 29 U/L (5-34); Albumin 2.9 g/dL (3.4-4.8); Alkaline Phosphatase 119 U/L (40-110); Anion Gap 12 mmol/L (10-20); BUN (Urea Nitrogen) 17 mg/dL (9.8-20.1); Calc. Creatinine Clearance 70 mL/min (70-130); Calcium 8.6 mg/dL (7.8-10.44); Carbon Dioxide 19 mmol/L (23-31); Chloride 99 mmol/L (98-107); Globulin 3.8 g/dL (2.4-3.5); Glucose 109 mg/dL (83-110); Potassium 3.7 mmol/L (3.5-5.1); Protein, Total 6.7 g/dL (5.8-8.1); Sodium 126 mmol/L (136-145)
[2021-03-06] MEDS: Loratadine 10 MG TAB PO SCH (09:19)
[2021-03-06] MEDS: Ondansetron PF 4 MG/2 ML Vial IVP PRN (09:20)
[2021-03-06] MEDS: Doxycycline 100 MG CAP PO SCH ×2 (09:20→20:28)
[2021-03-06] MEDS ORDERED: Loperamide HCl 1 MG/7.5 ML UDCUP PO PRN (09:32)
[2021-03-06] MEDS ORDERED: Furosemide 40 MG/4 ML VIAL SLOW IVP SCH (10:15)
[2021-03-06] MEDS ORDERED: Loperamide HCl 2 MG CAP PO PRN (12:14)
[2021-03-06] MEDS: Cyclobenzaprine 10 MG TAB PO PRN ×2 (12:29→20:27)
[2021-03-06] MEDS ORDERED: Lidocaine 1% (PF) 30 ML VIAL ONE (14:33)
[2021-03-06 16:45] LABS: Pleural Fluid, LDH 33 U/L (Not Available); Pleural Fluid, Protein Less than 1.0 g/dL
[2021-03-06 17:34] LABS: RBC Count-Automated (BF) 380 /cu.mm; WBC/Nucleated-Auto (BF) 130 uL
[2021-03-06 17:49] LABS: BF Color Yellow; Body Fluid Source Pleural Fluid; Clarity Hazy (Clear); Tube # EDTA
[2021-03-06 17:52] LABS: BF Segmented Neutrophils 30 %; Cell Count Non Hematic 30 %; Lymphocytes 40 %
[2021-03-06 18:03] LABS: Fluid, LDH 25 U/L (Not Available); Fluid, Triglycerides 14 mg/dL (Not Available)
[2021-03-06] MEDS: Acetaminophen 325 MG TAB PO PRN (18:15)
[2021-03-06] MEDS: Pregabalin 75 MG CAP PO SCH (20:26)
[2021-03-07] MEDS: Acetaminophen 325 MG TAB PO PRN (02:38)
[2021-03-07] MEDS: HYDROcodone/Acetaminophen 10/325 mg Tablet PO SCH ×3 (04:50→20:03)
[2021-03-07] MEDS: Cyclobenzaprine 10 MG TAB PO PRN ×2 (04:52→17:13)
[2021-03-07] MEDS: Levothyroxine Sodium 125 MCG TAB PO SCH (06:32)
[2021-03-07] MEDS: Doxycycline 100 MG CAP PO SCH ×2 (08:09→20:04)
[2021-03-07] MEDS: Loratadine 10 MG TAB PO SCH (08:09)
[2021-03-07] MEDS ORDERED: Furosemide 40 MG/4 ML VIAL SLOW IVP SCH (08:15)
[2021-03-07] MEDS: Cefdinir 300 MG CAP PO SCH ×2 (08:31→20:04)
[2021-03-07 09:39] LABS: Sodium 125 mmol/L (136-145)
[2021-03-07] MEDS: Furosemide 20 MG TAB PO SCH (20:04)
[2021-03-07] MEDS: Pregabalin 75 MG CAP PO SCH (20:04)
[2021-03-08] MEDS: Cyclobenzaprine 10 MG TAB PO PRN ×2 (00:35→08:35)
[2021-03-08] MEDS: Levothyroxine Sodium 125 MCG TAB PO SCH (04:09)
[2021-03-08] MEDS: HYDROcodone/Acetaminophen 10/325 mg Tablet PO SCH (04:10)
[2021-03-08 06:37] LABS: Anion Gap 9 mmol/L (10-20); BUN (Urea Nitrogen) 18 mg/dL (9.8-20.1); Calc. Creatinine Clearance 73 mL/min (70-130); Calcium 8.3 mg/dL (7.8-10.44); Carbon Dioxide 23 mmol/L (23-31); Chloride 97 mmol/L (98-107); Glucose 83 mg/dL (83-110); Potassium 3.4 mmol/L (3.5-5.1); Sodium 126 mmol/L (136-145)
[2021-03-08] MEDS ORDERED: Spironolactone 25 MG TAB PO SCH (08:00)
[2021-03-08 08:30] VITALS: BP 141/83; TEMP 97.5
[2021-03-08] MEDS: Loratadine 10 MG TAB PO SCH (08:37)
[2021-03-08] MEDS: Cefdinir 300 MG CAP PO SCH (08:37)
[2021-03-08] MEDS: Furosemide 20 MG TAB PO SCH (08:37)
[2021-03-08] MEDS: Doxycycline 100 MG CAP PO SCH (08:57)
[2021-03-08] MEDS ORDERED: Potassium Chloride 20 MEQ TAB PO SCH (10:00)
== END 2021-03-08 12:19 | disposition home or self-care (01) | DRG 432 ==
LOC: ERS 10:20 → ERHOLD 14:41 → SURG A 21:09 → OBSVTOIN 03-05 10:15
PROVIDERS: ADMIT Internal Medicine; ATTEND Internal Medicine
PROC: 0W993ZZ Drainage of Right Pleural Cavity, Percutaneous Approach (ICD-10-PCS; principal; 2021-03-05)
DX: K74.60 Unspecified cirrhosis of liver (principal); J96.01 Acute respiratory failure with hypoxia; E22.2 Syndrome of inappropriate secretion of antidiuretic hormone; J94.8 Other specified pleural conditions; N39.0 Urinary tract infection, site not specified; K52.1 Toxic gastroenteritis and colitis; R18.8 Other ascites; B02.29 Other postherpetic nervous system involvement; K76.6 Portal hypertension; Z66 Do not resuscitate; Z20.822 Contact with and (suspected) exposure to COVID-19; B95.62 Methicillin resistant Staphylococcus aureus infection as the cause of diseases classified elsewhere; E87.6 Hypokalemia; R25.2 Cramp and spasm; K21.9 Gastro-esophageal reflux disease without esophagitis; T50.4X5A Adverse effect of drugs affecting uric acid metabolism, initial encounter; M10.9 Gout, unspecified; M06.9 Rheumatoid arthritis, unspecified; E86.0 Dehydration; N18.1 Chronic kidney disease, stage 1; D69.6 Thrombocytopenia, unspecified; I12.9 Hypertensive chronic kidney disease with stage 1 through stage 4 chronic kidney disease, or unspecified chronic kidney disease; E83.42 Hypomagnesemia; Z88.5 Allergy status to narcotic agent; Z79.899 Other long term (current) drug therapy; Z95.0 Presence of cardiac pacemaker; Z90.49 Acquired absence of other specified parts of digestive tract
CPT/HCPCS: 36415; 71045; 71250; 74177; 80048; 80053; 81003; 81015; 82553; 82728; 82945; 83605; 83615; 83735; 83880; 83930; 83935; 84075; 84157; 84295; 84443; 84478; 84484; 85025; 85060; 87045; 87046; 87070; 87077; 87081; 87086; 87186; 87205; 87324; 87328; 87329; 87427; 87449; 88112; 89051; 93005; 93010; 93975; 96374; 96375; 96376; G0378; J0696; J1940; J2001; J2270; J2405; J3475; J3490; Q9967; U0003; U0005

== ENCOUNTER 2021-04-12 09:23 | Outpatient (CLI) | payer MEDICARE | END 2021-04-12 09:24 | disposition home or self-care (01) | LOC: ULT 09:23 | PROVIDERS: ATTEND Internal Medicine | DX: K74.60 Unspecified cirrhosis of liver (principal); R94.5 Abnormal results of liver function studies; K76.89 Other specified diseases of liver; K80.20 Calculus of gallbladder without cholecystitis without obstruction; R18.8 Other ascites; J90 Pleural effusion, not elsewhere classified | CPT/HCPCS: 76705 ==

== ENCOUNTER 2021-06-16 11:48 | Outpatient (CLI) | payer MEDICARE | END 2021-06-16 11:49 | disposition home or self-care (01) | LOC: BICMAMMO 11:48 | PROVIDERS: ATTEND Family Medicine | DX: Z12.31 Encounter for screening mammogram for malignant neoplasm of breast (principal); Z80.3 Family history of malignant neoplasm of breast | CPT/HCPCS: 77063; 77067 ==

== ENCOUNTER 2021-08-01 18:04 | Inpatient (IN) | payer MEDICARE ==
[2021-08-01 19:11] LABS: #Eosinphils 0.1 thou/uL (0.0-0.7); #Lymphocytes 0.6 thou/uL (1.20-3.40); #Monocytes 0.4 thou/uL (0.11-0.59); #Neutrophils 4.2 thou/uL (1.40-6.50); %Basophils 0.6 % (0.0-1.0); %Eosinophils 1.9 % (0.0-10.0); %Lymphocytes 11.6 % (21.0-51.0); %Monocytes 6.9 % (0.0-10.0); Hemoglobin 12.5 g/dL (12.0-16.0); Mean Corpuscular Hemoglobin 31.3 pg (27.0-31.0); Mean Corpuscular Volume 89.4 fL (78.0-98.0); Mean Platelet Volume 10.8 fL (7.4-10.4); Platelet Count 48 thou/uL (130-400); RBC Distribution Width 14.2 % (11.5-14.5); White Blood Cell (WBC) Count 5.3 thou/uL (4.8-10.8)
[2021-08-01 19:33] LABS: ALT (SGPT) 37 U/L (8-55); AST (SGOT) 38 U/L (5-34); Albumin 3.5 g/dL (3.4-4.8); Alkaline Phosphatase 116 U/L (40-110); Anion Gap 15 mmol/L (10-20); BUN (Urea Nitrogen) 36 mg/dL (9.8-20.1); Bilirubin, Total 1.9 mg/dL (0.2-1.2); Calc. Creatinine Clearance 0 mL/min (70-130); Calcium 9.3 mg/dL (7.8-10.44); Carbon Dioxide 20 mmol/L (23-31); Chloride 103 mmol/L (98-107); Globulin 3.8 g/dL (2.4-3.5); Glucose 114 mg/dL (83-110); Lipase 86 U/L (8-78); Potassium 4.4 mmol/L (3.5-5.1); Protein, Total 7.3 g/dL (5.8-8.1); Sodium 134 mmol/L (136-145)
[2021-08-01 19:54] LABS: CKMB 1.3 ng/mL (0-6.6)
[2021-08-01 20:42] LABS: Bacteria/HPF 4+ HPF (None Seen); Bilirubin Negative (Negative); Blood, Urine Negative (Negative); Clarity Turbid (Clear); Glucose, Urine (Dipstick) Normal (Negative); Ketone, Urine Negative (Negative); Leukocyte 500 Leu/uL (Negative); Nitrite Negative (Negative); Protein, Urine (Dipstick) Negative (Neg-Trace); RBC/HPF 0-3 HPF (0-3); Specific Gravity, Urine 1.013 (1.002-1.036); Squamous Epithelial 0-3 HPF (0-3); Urobilinogen Normal mg/dL (Less than 2); pH, Urine 5.5 (5.0-9.0)
[2021-08-01] MEDS ORDERED: cefTRIAXone\\ROCEPHIN 1 GM VIAL ONE (21:05)
[2021-08-01] MEDS ORDERED: hydrALAZINE 20 MG/ML VIAL SLOW IVP PRN (22:08)
[2021-08-01] MEDS ORDERED: HYDROcodone/Acetaminophen 7.5/325 mg Tablet PO PRN (22:11)
[2021-08-01] MEDS ORDERED: HYDROcodone/Acetaminophen 5/325 mg Tablet ONE (22:39)
[2021-08-01] MEDS ORDERED: Sodium Bicarbonate 50 MEQ in Sodium Chloride 0.45% 1,000 ML IV SCH (23:00)
[2021-08-02 02:27] LABS: SARS-CoV-2 NAA Rapid Test Not Detected (NotDetected)
[2021-08-02] MEDS ORDERED: Morphine 4 MG/ML VIAL ONE ×2 (05:40→11:03)
[2021-08-02] MEDS: Morphine 4 MG/ML VIAL SLOW IVP PRN ×3 (06:23→23:14)
[2021-08-02 07:44] LABS: Hemoglobin 10.6 g/dL (12.0-16.0); Mean Corpuscular Hemoglobin 30.4 pg (27.0-31.0); Mean Corpuscular Volume 89.4 fL (78.0-98.0); Mean Platelet Volume 9.9 fL (7.4-10.4); Platelet Count 37 thou/uL (130-400); RBC Distribution Width 14.3 % (11.5-14.5); Red Blood Cell (RBC) Count 3.48 mill/uL (4.20-5.40); White Blood Cell (WBC) Count 3.6 thou/uL (4.8-10.8)
[2021-08-02 07:58] LABS: Band 2 % (5-11); Eosinophils 5 % (0-10); Lymphocytes 24 % (21-51); MDiff Complete? YES; Monocytes 8 % (0-10); Neutrophil 61 % (42-75); Platelet Morphology Comment Appears Decreased; Polychromasia SLIGHT = 2-3 cells (100X) (0-2/hpf)
[2021-08-02 08:01] LABS: ALT (SGPT) 31 U/L (8-55); AST (SGOT) 32 U/L (5-34); Albumin 2.8 g/dL (3.4-4.8); Alkaline Phosphatase 95 U/L (40-110); Anion Gap 12 mmol/L (10-20); BUN (Urea Nitrogen) 29 mg/dL (9.8-20.1); Bilirubin, Total 1.6 mg/dL (0.2-1.2); Calc. Creatinine Clearance 0 mL/min (70-130); Calcium 8.9 mg/dL (7.8-10.44); Carbon Dioxide 21 mmol/L (23-31); Chloride 102 mmol/L (98-107); Globulin 3.3 g/dL (2.4-3.5); Glucose 81 mg/dL (83-110); Potassium 3.8 mmol/L (3.5-5.1); Protein, Total 6.1 g/dL (5.8-8.1); Sodium 131 mmol/L (136-145)
[2021-08-02] MEDS ORDERED: Heparin 5,000 UNITS/ML VIAL SC SCH (09:00)
[2021-08-02] MEDS: Doxycycline 100 MG CAP PO SCH ×2 (09:00→20:04)
[2021-08-02] MEDS: Levothyroxine Sodium 125 MCG TAB PO SCH (09:00)
[2021-08-02 15:17] VITALS: BMI 26.6
[2021-08-02] MEDS: cefTRIAXone\\ROCEPHIN 1 GM in Sodium Chloride 0.9% 100 ML IVPB SCH (20:03)
[2021-08-02] MEDS: HYDROcodone/Acetaminophen 10/325 mg Tablet PO PRN (20:05)
[2021-08-02 23:07] LABS: Creatinine, Urine 39.3 mg/dL (47-110)
[2021-08-03] MEDS ORDERED: Cyclobenzaprine 10 MG TAB PO SCH (02:00)
[2021-08-03] MEDS ORDERED: Loperamide HCl 2 MG CAP PO PRN (02:29)
[2021-08-03] MEDS: Levothyroxine Sodium 125 MCG TAB PO SCH (05:55)
[2021-08-03 07:07] LABS: Hemoglobin 10.4 g/dL (12.0-16.0); Mean Corpuscular Hemoglobin 31.5 pg (27.0-31.0); Mean Corpuscular Volume 89.8 fL (78.0-98.0); Red Blood Cell (RBC) Count 3.31 mill/uL (4.20-5.40); White Blood Cell (WBC) Count 2.6 thou/uL (4.8-10.8)
[2021-08-03 07:08] LABS: #Eosinphils 0.1 thou/uL (0.0-0.7); #Lymphocytes 0.7 thou/uL (1.20-3.40); #Monocytes 0.3 thou/uL (0.11-0.59); #Neutrophils 1.4 thou/uL (1.40-6.50); %Basophils 0.3 % (0.0-1.0); %Eosinophils 4.9 % (0.0-10.0); %Lymphocytes 28.3 % (21.0-51.0); %Monocytes 11.1 % (0.0-10.0); %Neutrophils 55.4 % (42.0-75.0); Mean Corpuscular HGB CONC 35.1 g/dL (32.0-36.0); Mean Platelet Volume 10.6 fL (7.4-10.4); Platelet Count 33 thou/uL (130-400); RBC Distribution Width 14.2 % (11.5-14.5)
[2021-08-03 07:27] LABS: ALT (SGPT) 29 U/L (8-55); AST (SGOT) 30 U/L (5-34); Albumin 2.8 g/dL (3.4-4.8); Alkaline Phosphatase 100 U/L (40-110); Anion Gap 10 mmol/L (10-20); BUN (Urea Nitrogen) 23 mg/dL (9.8-20.1); Bilirubin, Total 1.1 mg/dL (0.2-1.2); Calc. Creatinine Clearance 52 mL/min (70-130); Calcium 8.6 mg/dL (7.8-10.44); Carbon Dioxide 23 mmol/L (23-31); Chloride 100 mmol/L (98-107); Globulin 3.1 g/dL (2.4-3.5); Glucose 84 mg/dL (83-110); Magnesium 1.8 mg/dL (1.6-2.6); Phosphorus 3.3 mg/dL (2.3-4.7); Potassium 3.7 mmol/L (3.5-5.1); Protein, Total 5.9 g/dL (5.8-8.1); Sodium 129 mmol/L (136-145)
[2021-08-03] MEDS: Doxycycline 100 MG CAP PO SCH ×2 (09:06→20:23)
[2021-08-03] MEDS: Morphine 4 MG/ML VIAL SLOW IVP PRN (10:07)
[2021-08-03] MEDS ORDERED: Ondansetron ODT 4 MG TAB PO PRN (13:50)
[2021-08-03] MEDS ORDERED: Ondansetron PF 4 MG/2 ML Vial IVP PRN (13:50)
[2021-08-03] MEDS: HYDROcodone/Acetaminophen 10/325 mg Tablet PO PRN (15:49)
[2021-08-03] MEDS: cefTRIAXone\\ROCEPHIN 1 GM in Sodium Chloride 0.9% 100 ML IVPB SCH (20:22)
[2021-08-04] MEDS: Morphine 4 MG/ML VIAL SLOW IVP PRN ×2 (00:19→05:28)
[2021-08-04] MEDS: HYDROcodone/Acetaminophen 10/325 mg Tablet PO PRN ×3 (01:26→16:40)
[2021-08-04] MEDS: Levothyroxine Sodium 125 MCG TAB PO SCH (05:28)
[2021-08-04] MEDS: Doxycycline 100 MG CAP PO SCH (09:12)
[2021-08-04 17:49] LABS: Reticulocyte Count 5.1 % (0.5-1.5)
[2021-08-04 17:54] LABS: Hemoglobin 11.4 g/dL (12.0-16.0); Mean Corpuscular HGB CONC 34.8 g/dL (32.0-36.0); Mean Corpuscular Hemoglobin 31.3 pg (27.0-31.0); Mean Corpuscular Volume 89.8 fL (78.0-98.0); Mean Platelet Volume 10.5 fL (7.4-10.4); Platelet Count 31 thou/uL (130-400); Red Blood Cell (RBC) Count 3.63 mill/uL (4.20-5.40); White Blood Cell (WBC) Count 4.1 thou/uL (4.8-10.8)
[2021-08-04 18:05] LABS: INR-International Normal Ratio 1.6; PTT 47.7 sec (22.9-36.1); Prothrombin Time 18.8 sec (12.0-14.7)
[2021-08-04 18:10] LABS: Eosinophils 2 % (0-10); Lymphocytes 19 % (21-51); MDiff Complete? YES; Monocytes 7 % (0-10); Neutrophil 72 % (42-75); Platelet Morphology Comment Appears Decreased; Polychromasia SLIGHT = 2-3 cells (100X) (0-2/hpf)
[2021-08-04] MEDS: Ferrous Sulfate 325 MG TAB PO SCH (20:15)
[2021-08-04] MEDS: Pregabalin 75 MG CAP PO SCH (20:16)
[2021-08-04] MEDS: Cyclobenzaprine 10 MG TAB PO PRN (20:16)
[2021-08-04] MEDS: Furosemide 20 MG TAB PO SCH (20:16)
[2021-08-05] MEDS: HYDROcodone/Acetaminophen 10/325 mg Tablet PO PRN ×3 (00:32→18:10)
[2021-08-05] MEDS: Levothyroxine Sodium 125 MCG TAB PO SCH (05:55)
[2021-08-05 06:51] LABS: Anion Gap 10 mmol/L (10-20); BUN (Urea Nitrogen) 18 mg/dL (9.8-20.1); Calc. Creatinine Clearance 53 mL/min (70-130); Calcium 8.5 mg/dL (7.8-10.44); Carbon Dioxide 20 mmol/L (23-31); Chloride 100 mmol/L (98-107); Glucose 80 mg/dL (83-110); Potassium 3.8 mmol/L (3.5-5.1); Sodium 126 mmol/L (136-145)
[2021-08-05 07:16] LABS: Mean Corpuscular HGB CONC 34.3 g/dL (32.0-36.0); Mean Corpuscular Hemoglobin 30.6 pg (27.0-31.0); Mean Corpuscular Volume 89.4 fL (78.0-98.0); Mean Platelet Volume 10.7 fL (7.4-10.4); Platelet Count 29 thou/uL (130-400); RBC Distribution Width 14.1 % (11.5-14.5); Red Blood Cell (RBC) Count 3.26 mill/uL (4.20-5.40); White Blood Cell (WBC) Count 2.5 thou/uL (4.8-10.8)
[2021-08-05 08:34] LABS: #Eosinphils 0.2 thou/uL (0.0-0.7); #Lymphocytes 0.6 thou/uL (1.20-3.40); #Monocytes 0.3 thou/uL (0.11-0.59); #Neutrophils 1.4 thou/uL (1.40-6.50); %Eosinophils 6.6 % (0.0-10.0); %Lymphocytes 25.6 % (21.0-51.0); %Monocytes 12.2 % (0.0-10.0); %Neutrophils 55.6 % (42.0-75.0); Platelet Morphology Comment Appears Decreased
[2021-08-05] MEDS ORDERED: Spironolactone 25 MG TAB PO SCH (09:00)
[2021-08-05] MEDS ORDERED: Amlodipine 5 MG TAB PO SCH (09:00)
[2021-08-05] MEDS: Furosemide 20 MG TAB PO SCH (09:04)
[2021-08-05] MEDS: Potassium Chloride 10 MEQ TAB PO SCH (09:04)
[2021-08-05] MEDS: Nadolol 40 MG TAB PO SCH (09:05)
[2021-08-05] MEDS: Ferrous Sulfate 325 MG TAB PO SCH ×2 (09:07→20:52)
[2021-08-05] MEDS: Cyclobenzaprine 10 MG TAB PO PRN (20:52)
[2021-08-05] MEDS: Pregabalin 75 MG CAP PO SCH (20:52)
[2021-08-06] MEDS: HYDROcodone/Acetaminophen 10/325 mg Tablet PO PRN ×3 (02:26→18:52)
[2021-08-06] MEDS: Levothyroxine Sodium 125 MCG TAB PO SCH (03:19)
[2021-08-06] MEDS: Cyclobenzaprine 10 MG TAB PO PRN (03:19)
[2021-08-06 07:04] LABS: #Eosinphils 0.1 thou/uL (0.0-0.7); #Lymphocytes 0.6 thou/uL (1.20-3.40); #Monocytes 0.2 thou/uL (0.11-0.59); #Neutrophils 1.3 thou/uL (1.40-6.50); %Eosinophils 4.4 % (0.0-10.0); %Lymphocytes 25.5 % (21.0-51.0); %Monocytes 11.2 % (0.0-10.0); %Neutrophils 58.9 % (42.0-75.0); Hemoglobin 9.6 g/dL (12.0-16.0); Mean Corpuscular HGB CONC 35.3 g/dL (32.0-36.0); Mean Corpuscular Hemoglobin 31.6 pg (27.0-31.0); Mean Corpuscular Volume 89.7 fL (78.0-98.0); Platelet Count 30 thou/uL (130-400); Red Blood Cell (RBC) Count 3.04 mill/uL (4.20-5.40); White Blood Cell (WBC) Count 2.1 thou/uL (4.8-10.8)
[2021-08-06 07:10] LABS: Anion Gap 11 mmol/L (10-20); BUN (Urea Nitrogen) 21 mg/dL (9.8-20.1); Calc. Creatinine Clearance 56 mL/min (70-130); Calcium 8.4 mg/dL (7.8-10.44); Carbon Dioxide 21 mmol/L (23-31); Chloride 97 mmol/L (98-107); Glucose 78 mg/dL (83-110); Potassium 3.8 mmol/L (3.5-5.1); Sodium 125 mmol/L (136-145)
[2021-08-06] MEDS: Furosemide 20 MG TAB PO SCH (09:40)
[2021-08-06] MEDS: Nadolol 40 MG TAB PO SCH (09:40)
[2021-08-06] MEDS: Ferrous Sulfate 325 MG TAB PO SCH ×2 (09:40→21:42)
[2021-08-06] MEDS: Potassium Chloride 10 MEQ TAB PO SCH (09:41)
[2021-08-06] MEDS: Pregabalin 75 MG CAP PO SCH (21:41)
[2021-08-06 23:19] LABS: Potassium, Urine 30.5 mmol/L
[2021-08-07] MEDS: HYDROcodone/Acetaminophen 10/325 mg Tablet PO PRN ×3 (03:12→20:18)
[2021-08-07] MEDS: Levothyroxine Sodium 125 MCG TAB PO SCH (06:08)
[2021-08-07 07:18] LABS: Anion Gap 11 mmol/L (10-20); BUN (Urea Nitrogen) 22 mg/dL (9.8-20.1); Calc. Creatinine Clearance 59 mL/min (70-130); Calcium 8.6 mg/dL (7.8-10.44); Carbon Dioxide 20 mmol/L (23-31); Chloride 98 mmol/L (98-107); Glucose 76 mg/dL (83-110); Potassium 3.9 mmol/L (3.5-5.1); Sodium 125 mmol/L (136-145)
[2021-08-07 07:20] LABS: #Eosinphils 0.1 thou/uL (0.0-0.7); #Lymphocytes 0.5 thou/uL (1.20-3.40); #Monocytes 0.3 thou/uL (0.11-0.59); #Neutrophils 1.5 thou/uL (1.40-6.50); %Eosinophils 3.7 % (0.0-10.0); %Lymphocytes 21.8 % (21.0-51.0); %Monocytes 12.4 % (0.0-10.0); %Neutrophils 62.1 % (42.0-75.0); Hemoglobin 9.8 g/dL (12.0-16.0); Mean Corpuscular Hemoglobin 31.5 pg (27.0-31.0); Mean Platelet Volume 10.8 fL (7.4-10.4); Platelet Count 31 thou/uL (130-400); RBC Distribution Width 13.8 % (11.5-14.5); Red Blood Cell (RBC) Count 3.12 mill/uL (4.20-5.40); White Blood Cell (WBC) Count 2.4 thou/uL (4.8-10.8)
[2021-08-07] MEDS: Furosemide 20 MG TAB PO SCH (08:04)
[2021-08-07] MEDS: Nadolol 40 MG TAB PO SCH (08:04)
[2021-08-07] MEDS: Ferrous Sulfate 325 MG TAB PO SCH ×2 (08:04→20:17)
[2021-08-07] MEDS: Potassium Chloride 10 MEQ TAB PO SCH (08:04)
[2021-08-07] MEDS ORDERED: Furosemide 40 MG/4 ML VIAL SLOW IVP SCH (16:00)
[2021-08-07] MEDS: Cyclobenzaprine 10 MG TAB PO PRN (20:17)
[2021-08-07] MEDS: Pregabalin 75 MG CAP PO SCH (20:18)
[2021-08-08] MEDS: Levothyroxine Sodium 125 MCG TAB PO SCH (05:32)
[2021-08-08] MEDS: HYDROcodone/Acetaminophen 10/325 mg Tablet PO PRN ×3 (05:32→22:03)
[2021-08-08 08:13] LABS: #Eosinphils 0.1 thou/uL (0.0-0.7); #Lymphocytes 0.7 thou/uL (1.20-3.40); #Monocytes 0.3 thou/uL (0.11-0.59); #Neutrophils 1.6 thou/uL (1.40-6.50); %Basophils 0.2 % (0.0-1.0); %Eosinophils 4.4 % (0.0-10.0); %Lymphocytes 24.9 % (21.0-51.0); %Monocytes 10.4 % (0.0-10.0); %Neutrophils 60.2 % (42.0-75.0); Hemoglobin 10.9 g/dL (12.0-16.0); Mean Corpuscular HGB CONC 33.5 g/dL (32.0-36.0); Mean Corpuscular Volume 89.5 fL (78.0-98.0); Mean Platelet Volume 9.5 fL (7.4-10.4); Platelet Count 41 thou/uL (130-400); Red Blood Cell (RBC) Count 3.64 mill/uL (4.20-5.40); White Blood Cell (WBC) Count 2.7 thou/uL (4.8-10.8)
[2021-08-08 08:22] LABS: Anion Gap 8 mmol/L (10-20); BUN (Urea Nitrogen) 24 mg/dL (9.8-20.1); Calc. Creatinine Clearance 48 mL/min (70-130); Calcium 8.9 mg/dL (7.8-10.44); Carbon Dioxide 27 mmol/L (23-31); Chloride 98 mmol/L (98-107); Glucose 82 mg/dL (83-110); Potassium 4.1 mmol/L (3.5-5.1); Sodium 129 mmol/L (136-145)
[2021-08-08] MEDS: Ferrous Sulfate 325 MG TAB PO SCH ×2 (10:13→22:02)
[2021-08-08] MEDS: Nadolol 40 MG TAB PO SCH (10:13)
[2021-08-08] MEDS: Potassium Chloride 10 MEQ TAB PO SCH (10:13)
[2021-08-08] MEDS: Furosemide 20 MG TAB PO SCH (10:13)
[2021-08-08] MEDS ORDERED: Furosemide 40 MG/4 ML VIAL SLOW IVP SCH (13:00)
[2021-08-08] MEDS: Cyclobenzaprine 10 MG TAB PO PRN (22:02)
[2021-08-08] MEDS: Pregabalin 75 MG CAP PO SCH (22:03)
[2021-08-09 05:20] LABS: #Eosinphils 0.1 thou/uL (0.0-0.7); #Lymphocytes 0.6 thou/uL (1.20-3.40); #Monocytes 0.2 thou/uL (0.11-0.59); %Basophils 0.3 % (0.0-1.0); %Eosinophils 4.7 % (0.0-10.0); %Lymphocytes 32.2 % (21.0-51.0); %Monocytes 12.5 % (0.0-10.0); %Neutrophils 50.4 % (42.0-75.0); Hemoglobin 10.4 g/dL (12.0-16.0); Mean Corpuscular HGB CONC 35.4 g/dL (32.0-36.0); Mean Corpuscular Hemoglobin 31.6 pg (27.0-31.0); Mean Corpuscular Volume 89.3 fL (78.0-98.0); Mean Platelet Volume 9.6 fL (7.4-10.4); Platelet Count 35 thou/uL (130-400); RBC Distribution Width 13.7 % (11.5-14.5); Red Blood Cell (RBC) Count 3.28 mill/uL (4.20-5.40); White Blood Cell (WBC) Count 1.9 thou/uL (4.8-10.8)
[2021-08-09 05:38] LABS: Anion Gap 9 mmol/L (10-20); BUN (Urea Nitrogen) 26 mg/dL (9.8-20.1); Calc. Creatinine Clearance 59 mL/min (70-130); Calcium 8.8 mg/dL (7.8-10.44); Carbon Dioxide 25 mmol/L (23-31); Chloride 99 mmol/L (98-107); Glucose 82 mg/dL (83-110); Potassium 3.3 mmol/L (3.5-5.1); Sodium 130 mmol/L (136-145)
[2021-08-09] MEDS: HYDROcodone/Acetaminophen 10/325 mg Tablet PO PRN ×2 (05:59→14:19)
[2021-08-09] MEDS: Levothyroxine Sodium 125 MCG TAB PO SCH (05:59)
[2021-08-09] MEDS ORDERED: Potassium Chloride 20 MEQ TAB PO SCH (07:00)
[2021-08-09] MEDS: Nadolol 40 MG TAB PO SCH (09:04)
[2021-08-09] MEDS: Potassium Chloride 10 MEQ TAB PO SCH (09:05)
[2021-08-09] MEDS: Ferrous Sulfate 325 MG TAB PO SCH (09:50)
[2021-08-09] MEDS ORDERED: Furosemide 40 MG/4 ML VIAL SLOW IVP SCH (14:00)
[2021-08-09 15:48] VITALS: BP 112/68; TEMP 97.7
== END 2021-08-09 17:30 | disposition home health service (06) | DRG 682 ==
LOC: ERS 18:04 → ERHOLD 23:20 → T4-A 08-02 14:54 → NEURO 08-04 18:31
PROVIDERS: ADMIT Internal Medicine; ATTEND Hospitalist
PROC: 4B02XTZ Measurement of Cardiac Defibrillator, External Approach (ICD-10-PCS; principal; 2021-08-05)
DX: N17.9 Acute kidney failure, unspecified (principal); Z66 Do not resuscitate; Z20.822 Contact with and (suspected) exposure to COVID-19; G93.41 Metabolic encephalopathy; N39.0 Urinary tract infection, site not specified; E87.1 Hypo-osmolality and hyponatremia; G93.1 Anoxic brain damage, not elsewhere classified; E87.2 Acidosis; D61.818 Other pancytopenia; K74.60 Unspecified cirrhosis of liver; I10 Essential (primary) hypertension; K21.9 Gastro-esophageal reflux disease without esophagitis; E03.9 Hypothyroidism, unspecified; M06.9 Rheumatoid arthritis, unspecified; E86.9 Volume depletion, unspecified; G89.29 Other chronic pain; M54.9 Dorsalgia, unspecified; D69.6 Thrombocytopenia, unspecified; N18.30 Chronic kidney disease, stage 3 unspecified; D63.1 Anemia in chronic kidney disease; R55 Syncope and collapse; I45.10 Unspecified right bundle-branch block; I08.3 Combined rheumatic disorders of mitral, aortic and tricuspid valves; I48.0 Paroxysmal atrial fibrillation; Z28.21 Immunization not carried out because of patient refusal; Z88.5 Allergy status to narcotic agent; Z87.440 Personal history of urinary (tract) infections; Z79.899 Other long term (current) drug therapy; Z95.810 Presence of automatic (implantable) cardiac defibrillator; Z79.890 Hormone replacement therapy; Z90.49 Acquired absence of other specified parts of digestive tract; Z90.710 Acquired absence of both cervix and uterus; Z90.89 Acquired absence of other organs; Z82.3 Family history of stroke; Z80.3 Family history of malignant neoplasm of breast; Z86.14 Personal history of Methicillin resistant Staphylococcus aureus infection; Z90.721 Acquired absence of ovaries, unilateral
CPT/HCPCS: 36415; 70450; 71045; 80048; 80053; 81003; 81015; 82140; 82553; 82570; 83605; 83690; 83735; 83930; 83935; 84100; 84133; 84300; 84443; 84484; 85007; 85025; 85027; 85046; 85060; 85610; 85730; 87040; 87086; 93005; 93306; 96365; J0696; J1644; J1940; J2270; J2405; J3490; U0002

== ENCOUNTER 2021-08-25 07:03 | Outpatient (CLI) | payer MEDICARE | END 2021-08-25 07:04 | disposition home or self-care (01) | LOC: BICULT 07:03 | PROVIDERS: ATTEND Internal Medicine | DX: K74.60 Unspecified cirrhosis of liver (principal); R60.0 Localized edema; K80.20 Calculus of gallbladder without cholecystitis without obstruction; R18.8 Other ascites; R16.1 Splenomegaly, not elsewhere classified | CPT/HCPCS: 76705 ==

== ENCOUNTER 2021-08-30 23:26 | Inpatient (IN) | payer MEDICARE ==
[2021-08-30 23:52] LABS: #Eosinphils 0.1 thou/uL (0.0-0.7); #Lymphocytes 0.5 thou/uL (1.20-3.40); #Monocytes 0.5 thou/uL (0.11-0.59); #Neutrophils 5.6 thou/uL (1.40-6.50); %Eosinophils 1.9 % (0.0-10.0); %Lymphocytes 7.4 % (21.0-51.0); %Monocytes 6.7 % (0.0-10.0); Hemoglobin 11.6 g/dL (12.0-16.0); Mean Corpuscular HGB CONC 33.1 g/dL (32.0-36.0); Mean Corpuscular Hemoglobin 29.3 pg (27.0-31.0); Mean Corpuscular Volume 88.7 fL (78.0-98.0); Mean Platelet Volume 11.1 fL (7.4-10.4); Platelet Count 48 thou/uL (130-400); RBC Distribution Width 12.8 % (11.5-14.5); Red Blood Cell (RBC) Count 3.94 mill/uL (4.20-5.40); White Blood Cell (WBC) Count 6.7 thou/uL (4.8-10.8)
[2021-08-31 00:12] LABS: ALT (SGPT) 41 U/L (8-55); AST (SGOT) 57 U/L (5-34); Alkaline Phosphatase 130 U/L (40-110); Anion Gap 15 mmol/L (10-20); BUN (Urea Nitrogen) 32 mg/dL (9.8-20.1); Bilirubin, Total 0.9 mg/dL (0.2-1.2); Calc. Creatinine Clearance 0 mL/min (70-130); Calcium 8.6 mg/dL (7.8-10.44); Carbon Dioxide 20 mmol/L (23-31); Chloride 100 mmol/L (98-107); Globulin 4.5 g/dL (2.4-3.5); Glucose 126 mg/dL (83-110); Protein, Total 7.5 g/dL (5.8-8.1); Sodium 130 mmol/L (136-145)
[2021-08-31] MEDS ORDERED: Ondansetron PF 4 MG/2 ML Vial ONE (00:50)
[2021-08-31] MEDS ORDERED: Morphine 4 MG/ML VIAL ONE ×2 (00:50→03:16)
[2021-08-31] MEDS ORDERED: Fentanyl 100 MCG/2 ML VIAL ONE (02:11)
[2021-08-31] MEDS ORDERED: Piperacillin/Tazobactam 3.375 GM VIAL ONE (02:59)
[2021-08-31 03:27] LABS: INR-International Normal Ratio 1.5; Prothrombin Time 18.4 sec (12.0-14.7)
[2021-08-31 04:33] LABS: SARS-CoV-2 NAA Rapid Test Not Detected (NotDetected)
[2021-08-31] MEDS ORDERED: Ondansetron PF 4 MG/2 ML Vial IVP PRN (05:00)
[2021-08-31] MEDS ORDERED: Sodium Chloride 0.9% 1,000 ML IV SCH ×2 (05:00→09:25)
[2021-08-31] MEDS ORDERED: Ondansetron ODT 4 MG TAB SL PRN (05:00)
[2021-08-31 05:35] VITALS: BMI 25.3
[2021-08-31] MEDS: Morphine 4 MG/ML VIAL SLOW IVP PRN ×5 (05:44→22:59)
[2021-08-31 07:35] LABS: #Lymphocytes 0.4 thou/uL (1.20-3.40); #Monocytes 0.3 thou/uL (0.11-0.59); #Neutrophils 2.9 thou/uL (1.40-6.50); %Basophils 0.5 % (0.0-1.0); %Eosinophils 1.1 % (0.0-10.0); %Lymphocytes 11.6 % (21.0-51.0); %Monocytes 9.1 % (0.0-10.0); %Neutrophils 77.8 % (42.0-75.0); Hemoglobin 10.8 g/dL (12.0-16.0); Mean Corpuscular HGB CONC 32.9 g/dL (32.0-36.0); Mean Corpuscular Hemoglobin 29.4 pg (27.0-31.0); Mean Corpuscular Volume 89.5 fL (78.0-98.0); Mean Platelet Volume 10.3 fL (7.4-10.4); Platelet Count 38 thou/uL (130-400); RBC Distribution Width 12.8 % (11.5-14.5); Red Blood Cell (RBC) Count 3.69 mill/uL (4.20-5.40); White Blood Cell (WBC) Count 3.8 thou/uL (4.8-10.8)
[2021-08-31 07:48] LABS: ALT (SGPT) 33 U/L (8-55); AST (SGOT) 26 U/L (5-34); Albumin 2.7 g/dL (3.4-4.8); Alkaline Phosphatase 106 U/L (40-110); Anion Gap 12 mmol/L (10-20); BUN (Urea Nitrogen) 30 mg/dL (9.8-20.1); Bilirubin, Total 0.9 mg/dL (0.2-1.2); Calc. Creatinine Clearance 48 mL/min (70-130); Calcium 8.4 mg/dL (7.8-10.44); Carbon Dioxide 22 mmol/L (23-31); Chloride 103 mmol/L (98-107); Globulin 3.5 g/dL (2.4-3.5); Glucose 94 mg/dL (83-110); Lipase 679 U/L (8-78); Magnesium 1.8 mg/dL (1.6-2.6); Potassium 4.3 mmol/L (3.5-5.1); Protein, Total 6.2 g/dL (5.8-8.1); Sodium 133 mmol/L (136-145)
[2021-08-31] MEDS ORDERED: Piperacillin/Tazobactam 3.375 GM in Sodium Chloride 0.9% 100 ML IVPB SCH (08:00)
[2021-08-31] MEDS ORDERED: WALKER MC SCH (09:30)
[2021-08-31] MEDS ORDERED: Lactated Ringer's 500 ML IV SCH (18:30)
[2021-08-31] MEDS: Lactated Ringer's 1,000 ML IV SCH ×2 (19:08→20:54)
[2021-08-31] MEDS: Ferrous Sulfate 325 MG TAB PO SCH (20:54)
[2021-08-31] MEDS: Pregabalin 75 MG CAP PO SCH (20:55)
[2021-08-31] MEDS: Spironolactone 25 MG TAB PO SCH (20:56)
[2021-08-31] MEDS: HYDROcodone/Acetaminophen 10/325 mg Tablet PO PRN (20:56)
[2021-08-31] MEDS: Zinc Sulfate 220 MG CAP PO SCH (20:56)
[2021-08-31] MEDS ORDERED: Zinc Sulfate 220 MG CAP PO SCH (21:00)
[2021-08-31] MEDS ORDERED: Non-Formulary Item 1 EACH (Spironolactone [Spironolactone] 50 MG Tablet) PO SCH (21:00)
[2021-08-31] MEDS ORDERED: Furosemide 20 MG TAB PO SCH (21:00)
[2021-08-31] MEDS ORDERED: Non-Formulary Item 1 EACH (Ferrous Sulfate [Ferrous Sulfate] 325 MG Tablet) PO SCH (21:00)
[2021-09-01] MEDS: Morphine 4 MG/ML VIAL SLOW IVP PRN ×5 (03:45→20:37)
[2021-09-01] MEDS: Lactated Ringer's 1,000 ML IV SCH ×2 (03:45→18:31)
[2021-09-01] MEDS ORDERED: Non-Formulary Item 1 EACH (Cholecalciferol (Vitamin D3) [Vitamin D3] 25 MCG Capsule) PO SCH (09:00)
[2021-09-01] MEDS ORDERED: Non-Formulary Item 1 EACH (Nadolol [Corgard] 20 MG Tab) PO SCH (09:00)
[2021-09-01] MEDS ORDERED: Non-Formulary Item 1 EACH (Multivitamin [Daily Multiple Vitamin] 1 EACH Tablet) PO SCH (09:00)
[2021-09-01] MEDS ORDERED: Potassium Chloride 20 MEQ TAB PO SCH (09:00)
[2021-09-01] MEDS: Zinc Sulfate 220 MG CAP PO SCH ×2 (09:33→20:36)
[2021-09-01] MEDS: Ferrous Sulfate 325 MG TAB PO SCH ×2 (09:33→20:36)
[2021-09-01] MEDS: Nadolol 40 MG TAB PO SCH (09:34)
[2021-09-01] MEDS: Spironolactone 25 MG TAB PO SCH ×2 (09:36→20:36)
[2021-09-01] MEDS: Cholecalciferol 1,000 UNITS (25 MCG) TAB PO SCH (09:36)
[2021-09-01] MEDS: Multivit, Therapeutic 1 TAB PO SCH (09:37)
[2021-09-01] MEDS: Levothyroxine Sodium 125 MCG TAB PO SCH (09:37)
[2021-09-01] MEDS: Loratadine 10 MG TAB PO SCH (09:37)
[2021-09-01 10:23] LABS: Hemoglobin 10.2 g/dL (12.0-16.0); Mean Corpuscular Hemoglobin 29.9 pg (27.0-31.0); Mean Corpuscular Volume 90.6 fL (78.0-98.0); Mean Platelet Volume 11.2 fL (7.4-10.4); Platelet Count 40 thou/uL (130-400); RBC Distribution Width 12.8 % (11.5-14.5); Red Blood Cell (RBC) Count 3.41 mill/uL (4.20-5.40); White Blood Cell (WBC) Count 5.2 thou/uL (4.8-10.8)
[2021-09-01 10:41] LABS: ALT (SGPT) 31 U/L (8-55); AST (SGOT) 30 U/L (5-34); Albumin 2.5 g/dL (3.4-4.8); Alkaline Phosphatase 90 U/L (40-110); Anion Gap 13 mmol/L (10-20); BUN (Urea Nitrogen) 23 mg/dL (9.8-20.1); Bilirubin, Total 1.5 mg/dL (0.2-1.2); Calc. Creatinine Clearance 54 mL/min (70-130); Calcium 8.1 mg/dL (7.8-10.44); Carbon Dioxide 19 mmol/L (23-31); Chloride 106 mmol/L (98-107); Globulin 3.5 g/dL (2.4-3.5); Glucose 64 mg/dL (83-110); Lipase 318 U/L (8-78); Potassium 4.3 mmol/L (3.5-5.1); Sodium 134 mmol/L (136-145)
[2021-09-01 11:00] LABS: Band 6 % (5-11); Eosinophils 2 % (0-10); Lymphocytes 11 % (21-51); MDiff Complete? YES; Monocytes 9 % (0-10); Neutrophil 67 % (42-75); Platelet Morphology Comment Appears Decreased; Polychromasia SLIGHT = 2-3 cells (100X) (0-2/hpf); Reactive Lymphocytes 5 % (0-10)
[2021-09-01] MEDS: Pregabalin 75 MG CAP PO SCH (20:36)
[2021-09-02] MEDS: Lactated Ringer's 1,000 ML IV SCH ×3 (00:30→21:42)
[2021-09-02] MEDS: Morphine 4 MG/ML VIAL SLOW IVP PRN ×4 (00:30→22:07)
[2021-09-02 07:35] LABS: #Eosinphils 0.1 thou/uL (0.0-0.7); #Lymphocytes 0.5 thou/uL (1.20-3.40); #Monocytes 0.5 thou/uL (0.11-0.59); #Neutrophils 3.3 thou/uL (1.40-6.50); %Basophils 0.3 % (0.0-1.0); %Eosinophils 2.7 % (0.0-10.0); %Lymphocytes 10.7 % (21.0-51.0); %Monocytes 11.1 % (0.0-10.0); %Neutrophils 75.2 % (42.0-75.0); Hemoglobin 10.2 g/dL (12.0-16.0); Mean Corpuscular HGB CONC 32.9 g/dL (32.0-36.0); Mean Corpuscular Volume 91.2 fL (78.0-98.0); Mean Platelet Volume 10.6 fL (7.4-10.4); Platelet Count 42 thou/uL (130-400); RBC Distribution Width 12.7 % (11.5-14.5); Red Blood Cell (RBC) Count 3.38 mill/uL (4.20-5.40); White Blood Cell (WBC) Count 4.4 thou/uL (4.8-10.8)
[2021-09-02 07:50] LABS: ALT (SGPT) 25 U/L (8-55); AST (SGOT) 24 U/L (5-34); Albumin 2.4 g/dL (3.4-4.8); Alkaline Phosphatase 95 U/L (40-110); Anion Gap 12 mmol/L (10-20); BUN (Urea Nitrogen) 22 mg/dL (9.8-20.1); Bilirubin, Total 1.2 mg/dL (0.2-1.2); Calc. Creatinine Clearance 58 mL/min (70-130); Calcium 8.2 mg/dL (7.8-10.44); Carbon Dioxide 20 mmol/L (23-31); Chloride 104 mmol/L (98-107); Globulin 3.4 g/dL (2.4-3.5); Glucose 60 mg/dL (83-110); Lipase 194 U/L (8-78); Potassium 4.2 mmol/L (3.5-5.1); Protein, Total 5.8 g/dL (5.8-8.1); Sodium 132 mmol/L (136-145)
[2021-09-02] MEDS: Multivit, Therapeutic 1 TAB PO SCH (09:14)
[2021-09-02] MEDS: Spironolactone 25 MG TAB PO SCH ×2 (09:14→21:44)
[2021-09-02] MEDS: Ferrous Sulfate 325 MG TAB PO SCH ×2 (09:15→21:44)
[2021-09-02] MEDS: Loratadine 10 MG TAB PO SCH (09:15)
[2021-09-02] MEDS: Levothyroxine Sodium 125 MCG TAB PO SCH (09:15)
[2021-09-02] MEDS: Cholecalciferol 1,000 UNITS (25 MCG) TAB PO SCH (09:15)
[2021-09-02] MEDS: Zinc Sulfate 220 MG CAP PO SCH ×2 (09:16→21:43)
[2021-09-02] MEDS: Nadolol 40 MG TAB PO SCH (09:17)
[2021-09-02] MEDS: Pregabalin 75 MG CAP PO SCH (21:44)
[2021-09-03] MEDS: Lactated Ringer's 1,000 ML IV SCH ×3 (03:30→11:11)
[2021-09-03] MEDS: Morphine 4 MG/ML VIAL SLOW IVP PRN ×3 (04:45→18:11)
[2021-09-03] MEDS: Cholecalciferol 1,000 UNITS (25 MCG) TAB PO SCH (08:49)
[2021-09-03] MEDS: Multivit, Therapeutic 1 TAB PO SCH (08:49)
[2021-09-03] MEDS: Levothyroxine Sodium 125 MCG TAB PO SCH (08:49)
[2021-09-03] MEDS: Ferrous Sulfate 325 MG TAB PO SCH ×2 (08:49→20:14)
[2021-09-03] MEDS: Spironolactone 25 MG TAB PO SCH ×2 (08:49→20:14)
[2021-09-03] MEDS: Zinc Sulfate 220 MG CAP PO SCH ×2 (08:49→20:15)
[2021-09-03] MEDS: Loratadine 10 MG TAB PO SCH (08:50)
[2021-09-03] MEDS: Nadolol 40 MG TAB PO SCH (08:52)
[2021-09-03] MEDS ORDERED: Electrolyte Replacement Protocol FS PRN (10:15)
[2021-09-03] MEDS ORDERED: Electrolyte Replacement Protocol 1 EACH FS SCH (10:15)
[2021-09-03] MEDS: Pregabalin 75 MG CAP PO SCH (20:15)
[2021-09-04] MEDS: HYDROcodone/Acetaminophen 10/325 mg Tablet PO PRN ×2 (00:02→09:16)
[2021-09-04] MEDS: Lactated Ringer's 1,000 ML IV SCH ×2 (00:03→11:29)
[2021-09-04] MEDS: Morphine 4 MG/ML VIAL SLOW IVP PRN ×2 (04:25→20:30)
[2021-09-04 09:05] LABS: #Eosinphils 0.2 thou/uL (0.0-0.7); #Lymphocytes 0.7 thou/uL (1.20-3.40); #Monocytes 0.5 thou/uL (0.11-0.59); #Neutrophils 2.7 thou/uL (1.40-6.50); %Eosinophils 4.4 % (0.0-10.0); %Lymphocytes 16.7 % (21.0-51.0); %Monocytes 11.7 % (0.0-10.0); %Neutrophils 67.2 % (42.0-75.0); Hemoglobin 11.3 g/dL (12.0-16.0); Mean Corpuscular HGB CONC 32.4 g/dL (32.0-36.0); Mean Corpuscular Volume 89.5 fL (78.0-98.0); Mean Platelet Volume 10.2 fL (7.4-10.4); Platelet Count 57 thou/uL (130-400); RBC Distribution Width 12.6 % (11.5-14.5)
[2021-09-04 09:09] LABS: ALT (SGPT) 26 U/L (8-55); AST (SGOT) 32 U/L (5-34); Albumin 2.6 g/dL (3.4-4.8); Alkaline Phosphatase 90 U/L (40-110); Anion Gap 10 mmol/L (10-20); BUN (Urea Nitrogen) 17 mg/dL (9.8-20.1); Bilirubin, Total 0.8 mg/dL (0.2-1.2); Calc. Creatinine Clearance 53 mL/min (70-130); Calcium 8.4 mg/dL (7.8-10.44); Carbon Dioxide 25 mmol/L (23-31); Chloride 100 mmol/L (98-107); Globulin 3.7 g/dL (2.4-3.5); Glucose 78 mg/dL (83-110); Lipase 206 U/L (8-78); Magnesium 1.5 mg/dL (1.6-2.6); Phosphorus 2.9 mg/dL (2.3-4.7); Potassium 4.9 mmol/L (3.5-5.1); Protein, Total 6.3 g/dL (5.8-8.1); Sodium 130 mmol/L (136-145)
[2021-09-04] MEDS: Levothyroxine Sodium 125 MCG TAB PO SCH (09:12)
[2021-09-04] MEDS: Ferrous Sulfate 325 MG TAB PO SCH ×2 (09:13→20:30)
[2021-09-04] MEDS: Nadolol 40 MG TAB PO SCH (09:13)
[2021-09-04] MEDS: Multivit, Therapeutic 1 TAB PO SCH (09:13)
[2021-09-04] MEDS: Loratadine 10 MG TAB PO SCH (09:13)
[2021-09-04] MEDS: Zinc Sulfate 220 MG CAP PO SCH ×2 (09:13→20:30)
[2021-09-04] MEDS: Cholecalciferol 1,000 UNITS (25 MCG) TAB PO SCH (09:14)
[2021-09-04] MEDS: Spironolactone 25 MG TAB PO SCH ×2 (09:15→20:31)
[2021-09-04] MEDS ORDERED: Magnesium 2 GM/50 ML 2 GM in Premix Bag 1 BAG IVPB SCH (10:00)
[2021-09-04] MEDS: Pregabalin 75 MG CAP PO SCH (20:31)
[2021-09-04 22:02] VITALS: BP 137/74; TEMP 97.5
== END 2021-09-04 21:00 | disposition home or self-care (01) | DRG 439 ==
LOC: ERS 23:26 → T4-B 08-31 03:32
PROVIDERS: ADMIT Internal Medicine; ATTEND Internal Medicine
DX: K85.10 Biliary acute pancreatitis without necrosis or infection (principal); K80.00 Calculus of gallbladder with acute cholecystitis without obstruction; E87.1 Hypo-osmolality and hyponatremia; D61.818 Other pancytopenia; K76.6 Portal hypertension; Z20.822 Contact with and (suspected) exposure to COVID-19; K74.60 Unspecified cirrhosis of liver; I35.0 Nonrheumatic aortic (valve) stenosis; K21.9 Gastro-esophageal reflux disease without esophagitis; E03.9 Hypothyroidism, unspecified; M06.9 Rheumatoid arthritis, unspecified; D69.59 Other secondary thrombocytopenia; G89.29 Other chronic pain; D69.6 Thrombocytopenia, unspecified; N18.2 Chronic kidney disease, stage 2 (mild); Z79.899 Other long term (current) drug therapy; Z88.5 Allergy status to narcotic agent; Z95.0 Presence of cardiac pacemaker; Z79.890 Hormone replacement therapy
CPT/HCPCS: 36415; 36416; 74177; 76705; 80053; 83690; 83735; 84100; 84484; 85025; 85610; 85730; 93005; 96365; 96375; 96376; J2270; J2405; J2543; J3010; J3475; J3490; J7050; J7120; U0002

== ENCOUNTER 2021-10-02 14:59 | Outpatient (CLI) | payer MEDICARE ==
[2021-10-03 14:32] LABS: SARS-CoV-2 PCR by NAA Not Detected (NotDetected)
== END 2021-10-02 15:00 | disposition home or self-care (01) ==
LOC: LABBT 14:59
PROVIDERS: ATTEND Internal Medicine Gastroenterology
DX: I35.0 Nonrheumatic aortic (valve) stenosis (principal); K74.60 Unspecified cirrhosis of liver; K92.1 Melena; K63.5 Polyp of colon; K83.1 Obstruction of bile duct; Z20.822 Contact with and (suspected) exposure to COVID-19
CPT/HCPCS: U0003; U0005

== ENCOUNTER 2021-10-05 10:33 | Day surgery (SDC) | payer MEDICARE ==
[2021-10-03 14:36] VITALS: BMI 23.6
[2021-10-05] MEDS ORDERED: Lidocaine 1% MPF 2 ML VIAL ONE (12:03)
[2021-10-05] MEDS ORDERED: PHENYLEPHRINE-NS 100 MCG/ML 10 ML SYRINGE ONE (12:22)
[2021-10-05] MEDS ORDERED: Ketamine 50 MG/ML (10ML VIAL) ONE (12:22)
[2021-10-05] MEDS ORDERED: Phenylephrine 10 MG/ML VIAL ONE (12:22)
[2021-10-05] MEDS ORDERED: Midazolam HCl 2 mg/2 ml Vial ONE (13:20)
== END 2021-10-05 16:45 | disposition home or self-care (01) ==
LOC: SDC 10:33
PROVIDERS: ATTEND Internal Medicine Gastroenterology
PROC: 0DB38ZX Excision of Lower Esophagus, Via Natural or Artificial Opening Endoscopic, Diagnostic (ICD-10-PCS; principal; 2021-10-05)
PROC: 0DBP8ZX Excision of Rectum, Via Natural or Artificial Opening Endoscopic, Diagnostic (ICD-10-PCS; 2021-10-05)
PROC: 0DBN8ZX Excision of Sigmoid Colon, Via Natural or Artificial Opening Endoscopic, Diagnostic (ICD-10-PCS; 2021-10-05)
DX: K57.31 Diverticulosis of large intestine without perforation or abscess with bleeding (principal); D12.5 Benign neoplasm of sigmoid colon; K62.89 Other specified diseases of anus and rectum; K21.00 Gastro-esophageal reflux disease with esophagitis, without bleeding; K64.8 Other hemorrhoids; K74.60 Unspecified cirrhosis of liver; K76.6 Portal hypertension; K31.89 Other diseases of stomach and duodenum; K31.7 Polyp of stomach and duodenum; K64.4 Residual hemorrhoidal skin tags; I10 Essential (primary) hypertension; E03.9 Hypothyroidism, unspecified; I35.0 Nonrheumatic aortic (valve) stenosis; D69.6 Thrombocytopenia, unspecified; Z79.899 Other long term (current) drug therapy; Z88.5 Allergy status to narcotic agent; Z95.0 Presence of cardiac pacemaker
CPT/HCPCS: 36430; 43239; 45331; 45338; 86850; 86900; 86901; P9035; 36415; 88305; 88312; 88313; J1642; J2250; J2370

== ENCOUNTER 2021-11-23 18:12 | Emergency (ER) | payer MEDICARE, OTHER ==
[2021-11-23 19:06] LABS: Bilirubin Negative (Negative); Blood, Urine Negative (Negative); Clarity Clear (Clear); Glucose, Urine (Dipstick) Normal (Negative); Ketone, Urine Negative (Negative); Leukocyte Negative Leu/uL (Negative); Nitrite Negative (Negative); Protein, Urine (Dipstick) Negative (Neg-Trace); Specific Gravity, Urine 1.006 (1.002-1.036); Urobilinogen Normal mg/dL (Less than 2)
[2021-11-23 19:31] LABS: #Eosinphils 0.2 thou/uL (0.0-0.7); #Lymphocytes 0.7 thou/uL (1.20-3.40); #Monocytes 0.4 thou/uL (0.11-0.59); #Neutrophils 2.6 thou/uL (1.40-6.50); %Eosinophils 4.5 % (0.0-10.0); %Lymphocytes 17.9 % (21.0-51.0); %Monocytes 10.9 % (0.0-10.0); %Neutrophils 66.7 % (42.0-75.0); Hemoglobin 12.2 g/dL (12.0-16.0); Mean Corpuscular HGB CONC 31.7 g/dL (32.0-36.0); Mean Corpuscular Hemoglobin 28.8 pg (27.0-31.0); Mean Platelet Volume 11.2 fL (7.4-10.4); Platelet Count 36 thou/uL (130-400); RBC Distribution Width 14.3 % (11.5-14.5); Red Blood Cell (RBC) Count 4.25 mill/uL (4.20-5.40)
[2021-11-23] MEDS ORDERED: Ondansetron PF 4 MG/2 ML Vial ONE (19:36)
[2021-11-23] MEDS ORDERED: Dicyclomine 20 MG/2 ML VIAL ONE (19:36)
[2021-11-23] MEDS ORDERED: Famotidine/PF 20 mg/2ml Vial ONE (19:36)
[2021-11-23 19:49] LABS: ALT (SGPT) 25 U/L (8-55); AST (SGOT) 27 U/L (5-34); Albumin 3.4 g/dL (3.4-4.8); Alkaline Phosphatase 116 U/L (40-110); Anion Gap 14 mmol/L (10-20); BUN (Urea Nitrogen) 30 mg/dL (9.8-20.1); Bilirubin, Total 1.2 mg/dL (0.2-1.2); Calc. Creatinine Clearance 0 mL/min (70-130); Calcium 9.2 mg/dL (7.8-10.44); Carbon Dioxide 20 mmol/L (23-31); Chloride 104 mmol/L (98-107); Globulin 4.3 g/dL (2.4-3.5); Glucose 93 mg/dL (83-110); Lipase 30 U/L (8-78); Magnesium 1.9 mg/dL (1.6-2.6); Potassium 4.7 mmol/L (3.5-5.1); Protein, Total 7.7 g/dL (5.8-8.1); Sodium 133 mmol/L (136-145)
== END 2021-11-23 21:42 | disposition home or self-care (01) ==
LOC: ERS 18:12
DX: N17.9 Acute kidney failure, unspecified (principal); D69.6 Thrombocytopenia, unspecified; R11.2 Nausea with vomiting, unspecified; R19.7 Diarrhea, unspecified; E03.9 Hypothyroidism, unspecified; E78.5 Hyperlipidemia, unspecified; I10 Essential (primary) hypertension; E78.00 Pure hypercholesterolemia, unspecified; M10.9 Gout, unspecified; M06.9 Rheumatoid arthritis, unspecified
CPT/HCPCS: 36415; 51701; 80053; 81003; 83605; 83690; 83735; 85025; 87086; 94760; 96372; 96374; 96375; J0500; J2405; S0028

== ENCOUNTER 2021-11-29 21:44 | Inpatient (IN) | payer MEDICARE ==
[2021-11-29 22:42] LABS: Hemoglobin 14.1 g/dL (12.0-16.0); Mean Corpuscular HGB CONC 33.7 g/dL (32.0-36.0); Mean Corpuscular Hemoglobin 29.4 pg (27.0-31.0); Mean Corpuscular Volume 87.3 fL (78.0-98.0); RBC Distribution Width 13.7 % (11.5-14.5); Red Blood Cell (RBC) Count 4.79 mill/uL (4.20-5.40); White Blood Cell (WBC) Count 6.9 thou/uL (4.8-10.8)
[2021-11-29 22:57] LABS: #Eosinphils 0.2 thou/uL (0.0-0.7); #Lymphocytes 1.1 thou/uL (1.20-3.40); #Monocytes 0.6 thou/uL (0.11-0.59); #Neutrophils 4.9 thou/uL (1.40-6.50); %Basophils 0.3 % (0.0-1.0); %Eosinophils 3.5 % (0.0-10.0); %Lymphocytes 16.1 % (21.0-51.0); %Monocytes 8.6 % (0.0-10.0); %Neutrophils 71.5 % (42.0-75.0); Mean Platelet Volume 11.2 fL (7.4-10.4); Platelet Count 70 thou/uL (130-400); Platelet Morphology Comment Appears Decreased
[2021-11-29 23:08] LABS: ALT (SGPT) 32 U/L (8-55); AST (SGOT) 30 U/L (5-34); Albumin 3.7 g/dL (3.4-4.8); Alkaline Phosphatase 120 U/L (40-110); Anion Gap 16 mmol/L (10-20); BUN (Urea Nitrogen) 42 mg/dL (9.8-20.1); Bilirubin, Total 1.4 mg/dL (0.2-1.2); Calc. Creatinine Clearance 0 mL/min (70-130); Calcium 9.5 mg/dL (7.8-10.44); Carbon Dioxide 21 mmol/L (23-31); Chloride 99 mmol/L (98-107); Globulin 4.5 g/dL (2.4-3.5); Glucose 113 mg/dL (83-110); Lipase 53 U/L (8-78); Magnesium 2.1 mg/dL (1.6-2.6); Potassium 4.9 mmol/L (3.5-5.1); Protein, Total 8.2 g/dL (5.8-8.1); Sodium 131 mmol/L (136-145)
[2021-11-29] MEDS ORDERED: Ondansetron PF 4 MG/2 ML Vial ONE (23:16)
[2021-11-30 00:36] LABS: Bilirubin Negative (Negative); Blood, Urine Trace (Negative); Clarity Turbid (Clear); Glucose, Urine (Dipstick) Normal (Negative); Ketone, Urine Negative (Negative); Leukocyte 500 Leu/uL (Negative); Nitrite Negative (Negative); Protein, Urine (Dipstick) 10 mg/dL (Neg-Trace); Specific Gravity, Urine 1.013 (1.002-1.036); Squamous Epithelial None Seen HPF (0-3); Urobilinogen Normal mg/dL (Less than 2); WBC/HPF Greater than 50 HPF (0-3)
[2021-11-30 00:38] LABS: Bacteria/HPF 4+ HPF (None Seen)
[2021-11-30] MEDS ORDERED: Vancomycin 1 GM/200 ML BAG ONE (00:56)
[2021-11-30] MEDS ORDERED: cefTRIAXone\\ROCEPHIN 1 GM VIAL ONE (00:56)
[2021-11-30 04:13] VITALS: BMI 22.4
[2021-11-30] MEDS: Cefepime 1 GM in Sodium Chloride 0.9% 100 ML IVPB SCH ×2 (10:31→20:44)
[2021-11-30] MEDS: Morphine 2 MG/ML VIAL SLOW IVP PRN ×3 (10:32→23:40)
[2021-11-30 12:20] LABS: SARS-CoV-2 PCR by NAA Not Detected (NotDetected)
[2021-11-30] MEDS: Albumin 25% 25 GM/100 ML BOT IVPB SCH ×3 (12:38→23:05)
[2021-11-30] MEDS: Phenazopyridine HCl 100 MG TAB PO SCH ×2 (12:49→17:54)
[2021-11-30] MEDS ORDERED: Vancomycin 1 GM in Premix Bag 1 BAG IVPB SCH (21:00)
[2021-11-30] MEDS: Melatonin 3 MG TAB PO PRN (21:57)
[2021-12-01] MEDS ORDERED: Vancomycin HCl 500 MG in Sodium Chloride 0.9% 100 ML IVPB SCH (01:00)
[2021-12-01] MEDS: Albumin 25% 25 GM/100 ML BOT IVPB SCH ×2 (05:31→11:34)
[2021-12-01] MEDS: Polyethylene Glycol 3350 17 GM Packet PO PRN ×2 (05:31→08:40)
[2021-12-01] MEDS: Levothyroxine Sodium 125 MCG TAB PO SCH (05:31)
[2021-12-01 06:16] LABS: Anion Gap 16 mmol/L (10-20); BUN (Urea Nitrogen) 31 mg/dL (9.8-20.1); Calc. Creatinine Clearance 40 mL/min (70-130); Calcium 9.6 mg/dL (7.8-10.44); Carbon Dioxide 16 mmol/L (23-31); Chloride 103 mmol/L (98-107); Glucose 83 mg/dL (83-110); Potassium 3.9 mmol/L (3.5-5.1); Sodium 131 mmol/L (136-145)
[2021-12-01 07:37] LABS: #Eosinphils 0.1 thou/uL (0.0-0.7); #Lymphocytes 0.5 thou/uL (1.20-3.40); #Monocytes 0.3 thou/uL (0.11-0.59); #Neutrophils 1.9 thou/uL (1.40-6.50); %Basophils 1.5 % (0.0-1.0); %Eosinophils 2.4 % (0.0-10.0); %Lymphocytes 17.3 % (21.0-51.0); %Monocytes 9.2 % (0.0-10.0); %Neutrophils 69.6 % (42.0-75.0); Hemoglobin 10.9 g/dL (12.0-16.0); Mean Corpuscular HGB CONC 34.3 g/dL (32.0-36.0); Mean Corpuscular Volume 87.5 fL (78.0-98.0); Platelet Count 32 thou/uL (130-400); RBC Distribution Width 13.3 % (11.5-14.5); Red Blood Cell (RBC) Count 3.63 mill/uL (4.20-5.40); White Blood Cell (WBC) Count 2.8 thou/uL (4.8-10.8)
[2021-12-01 07:59] LABS: MDiff Complete? YES; Platelet Morphology Comment Appears Decreased; Polychromasia SLIGHT = 2-3 cells (100X) (0-2/hpf)
[2021-12-01] MEDS: Phenazopyridine HCl 100 MG TAB PO SCH ×2 (07:59→12:41)
[2021-12-01] MEDS: Cefepime 1 GM in Sodium Chloride 0.9% 100 ML IVPB SCH ×2 (10:01→20:27)
[2021-12-01] MEDS: HYDROcodone/Acetaminophen 10/325 mg Tablet PO PRN ×2 (11:12→20:27)
[2021-12-01] MEDS ORDERED: Electrolyte Replacement Protocol 1 EACH FS SCH (14:15)
[2021-12-01] MEDS: Bisacodyl 10 MG SUPP PR SCH (20:22)
[2021-12-01] MEDS: Melatonin 3 MG TAB PO PRN (20:28)
[2021-12-02 04:05] LABS: #Eosinphils 0.1 thou/uL (0.0-0.7); #Lymphocytes 0.4 thou/uL (1.20-3.40); #Monocytes 0.3 thou/uL (0.11-0.59); #Neutrophils 1.9 thou/uL (1.40-6.50); %Basophils 0.8 % (0.0-1.0); %Eosinophils 2.8 % (0.0-10.0); %Lymphocytes 14.6 % (21.0-51.0); %Monocytes 9.9 % (0.0-10.0); Hemoglobin 10.4 g/dL (12.0-16.0); Mean Corpuscular HGB CONC 34.2 g/dL (32.0-36.0); Mean Corpuscular Hemoglobin 30.5 pg (27.0-31.0); Mean Platelet Volume 10.5 fL (7.4-10.4); Platelet Count 37 thou/uL (130-400); RBC Distribution Width 13.5 % (11.5-14.5); White Blood Cell (WBC) Count 2.7 thou/uL (4.8-10.8)
[2021-12-02 04:17] LABS: Albumin 4.4 g/dL (3.4-4.8); Anion Gap 15 mmol/L (10-20); BUN (Urea Nitrogen) 30 mg/dL (9.8-20.1); BUN/Creatinine Ratio 33.71; Calc. Creatinine Clearance 44 mL/min (70-130); Calcium 9.8 mg/dL (7.8-10.44); Carbon Dioxide 19 mmol/L (23-31); Chloride 105 mmol/L (98-107); Glucose 101 mg/dL (83-110); Magnesium 1.9 mg/dL (1.6-2.6); Phosphorus 2.6 mg/dL (2.3-4.7); Potassium 3.8 mmol/L (3.5-5.1); Sodium 135 mmol/L (136-145)
[2021-12-02] MEDS ORDERED: Magnesium 2 GM/50 ML(in water) 2 GM in Premix Bag 1 BAG IVPB SCH (05:00)
[2021-12-02] MEDS: HYDROcodone/Acetaminophen 10/325 mg Tablet PO PRN ×3 (05:08→23:00)
[2021-12-02] MEDS: Levothyroxine Sodium 125 MCG TAB PO SCH (05:09)
[2021-12-02] MEDS ORDERED: Non-Formulary Item 1 EACH (Lactulose 10 Gm/15ml Oral Sol 10 GM/15 ML Ml) PO SCH (09:00)
[2021-12-02] MEDS: Cefepime 1 GM in Sodium Chloride 0.9% 100 ML IVPB SCH ×2 (10:22→21:31)
[2021-12-02] MEDS: Ferrous Sulfate 325 MG TAB PO SCH (21:31)
[2021-12-02] MEDS: Rifaximin 550 MG TAB PO SCH (21:31)
[2021-12-02] MEDS: Bisacodyl 10 MG SUPP PR SCH (21:32)
[2021-12-02] MEDS ORDERED: Cyclobenzaprine 10 MG TAB PO SCH (21:33)
[2021-12-03] MEDS: Levothyroxine Sodium 125 MCG TAB PO SCH (06:11)
[2021-12-03 07:10] LABS: Anion Gap 13 mmol/L (10-20); BUN (Urea Nitrogen) 23 mg/dL (9.8-20.1); Calc. Creatinine Clearance 45 mL/min (70-130); Calcium 9.5 mg/dL (7.8-10.44); Carbon Dioxide 20 mmol/L (23-31); Chloride 103 mmol/L (98-107); Glucose 99 mg/dL (83-110); Potassium 3.9 mmol/L (3.5-5.1); Sodium 132 mmol/L (136-145)
[2021-12-03 08:02] LABS: Mean Corpuscular HGB CONC 33.9 g/dL (32.0-36.0); Mean Corpuscular Hemoglobin 30.1 pg (27.0-31.0); Mean Corpuscular Volume 88.6 fL (78.0-98.0); RBC Distribution Width 13.5 % (11.5-14.5); Red Blood Cell (RBC) Count 3.34 mill/uL (4.20-5.40); White Blood Cell (WBC) Count 2.5 thou/uL (4.8-10.8)
[2021-12-03 08:03] LABS: #Eosinphils 0.1 thou/uL (0.0-0.7); #Lymphocytes 0.7 thou/uL (1.20-3.40); #Monocytes 0.3 thou/uL (0.11-0.59); #Neutrophils 1.5 thou/uL (1.40-6.50); %Basophils 0.3 % (0.0-1.0); %Eosinophils 3.4 % (0.0-10.0); %Lymphocytes 27.1 % (21.0-51.0); %Monocytes 10.9 % (0.0-10.0); %Neutrophils 58.4 % (42.0-75.0); Mean Platelet Volume 10.7 fL (7.4-10.4); Platelet Count 27 thou/uL (130-400); Platelet Morphology Comment Appears Decreased
[2021-12-03] MEDS: HYDROcodone/Acetaminophen 10/325 mg Tablet PO PRN ×2 (08:35→16:13)
[2021-12-03] MEDS: Rifaximin 550 MG TAB PO SCH ×2 (08:39→20:52)
[2021-12-03] MEDS: Saccharomyces boulardii 250 MG CAP PO SCH (08:39)
[2021-12-03] MEDS: Magnesium Oxide 250 MG TAB PO SCH (08:39)
[2021-12-03] MEDS: Ferrous Sulfate 325 MG TAB PO SCH ×2 (08:40→20:52)
[2021-12-03] MEDS: Furosemide 40 MG TAB PO SCH (08:40)
[2021-12-03] MEDS: Cholecalciferol 1,000 UNITS (25 MCG) TAB PO SCH (08:40)
[2021-12-03] MEDS: Multivit, Therapeutic 1 TAB PO SCH (08:40)
[2021-12-03] MEDS: Pramipexole Di-HCl 0.25 MG TAB PO PRN (20:52)
[2021-12-03] MEDS: Ciprofloxacin 500 MG TAB PO SCH (20:52)
[2021-12-03] MEDS: Bisacodyl 10 MG SUPP PR SCH (20:53)
[2021-12-04] MEDS: HYDROcodone/Acetaminophen 10/325 mg Tablet PO PRN ×3 (00:14→16:10)
[2021-12-04] MEDS: Levothyroxine Sodium 125 MCG TAB PO SCH (05:21)
[2021-12-04] MEDS: Ciprofloxacin 500 MG TAB PO SCH ×2 (05:21→21:35)
[2021-12-04 06:20] LABS: #Eosinphils 0.1 thou/uL (0.0-0.7); #Lymphocytes 0.5 thou/uL (1.20-3.40); #Monocytes 0.2 thou/uL (0.11-0.59); #Neutrophils 1.2 thou/uL (1.40-6.50); %Basophils 1.8 % (0.0-1.0); %Eosinophils 3.9 % (0.0-10.0); %Lymphocytes 24.2 % (21.0-51.0); %Monocytes 9.5 % (0.0-10.0); %Neutrophils 60.6 % (42.0-75.0); Hemoglobin 9.2 g/dL (12.0-16.0); Mean Corpuscular HGB CONC 34.5 g/dL (32.0-36.0); Mean Corpuscular Hemoglobin 30.4 pg (27.0-31.0); Mean Corpuscular Volume 88.3 fL (78.0-98.0); Mean Platelet Volume 11.1 fL (7.4-10.4); Platelet Count 24 thou/uL (130-400); RBC Distribution Width 13.4 % (11.5-14.5); Red Blood Cell (RBC) Count 3.03 mill/uL (4.20-5.40); White Blood Cell (WBC) Count 1.9 thou/uL (4.8-10.8)
[2021-12-04] MEDS: Cholecalciferol 1,000 UNITS (25 MCG) TAB PO SCH (08:31)
[2021-12-04] MEDS: Rifaximin 550 MG TAB PO SCH (08:31)
[2021-12-04] MEDS: Furosemide 40 MG TAB PO SCH (08:31)
[2021-12-04] MEDS: Magnesium Oxide 250 MG TAB PO SCH (08:31)
[2021-12-04] MEDS: Saccharomyces boulardii 250 MG CAP PO SCH (08:31)
[2021-12-04] MEDS: Multivit, Therapeutic 1 TAB PO SCH (08:31)
[2021-12-04] MEDS: Ferrous Sulfate 325 MG TAB PO SCH ×2 (08:31→21:35)
[2021-12-04] MEDS: Bisacodyl 10 MG SUPP PR SCH (21:32)
[2021-12-04] MEDS: Melatonin 3 MG TAB PO PRN (21:35)
[2021-12-04] MEDS: Pramipexole Di-HCl 0.25 MG TAB PO PRN (21:36)
[2021-12-05] MEDS: HYDROcodone/Acetaminophen 10/325 mg Tablet PO PRN (00:05)
[2021-12-05] MEDS: Ciprofloxacin 500 MG TAB PO SCH (05:39)
[2021-12-05] MEDS: Levothyroxine Sodium 125 MCG TAB PO SCH (05:39)
[2021-12-05] MEDS ORDERED: HYDROcodone/Acetaminophen 10/325 mg Tablet PO SCH (06:15)
[2021-12-05] MEDS ORDERED: Ondansetron ODT 8 MG TAB SL SCH (06:15)
[2021-12-05 06:35] LABS: #Eosinphils 0.1 thou/uL (0.0-0.7); #Lymphocytes 0.4 thou/uL (1.20-3.40); #Monocytes 0.2 thou/uL (0.11-0.59); #Neutrophils 1.4 thou/uL (1.40-6.50); %Eosinophils 3.4 % (0.0-10.0); %Lymphocytes 20.9 % (21.0-51.0); %Monocytes 10.5 % (0.0-10.0); %Neutrophils 65.2 % (42.0-75.0); Hemoglobin 9.5 g/dL (12.0-16.0); Mean Corpuscular HGB CONC 33.7 g/dL (32.0-36.0); Mean Corpuscular Hemoglobin 30.2 pg (27.0-31.0); Mean Corpuscular Volume 89.6 fL (78.0-98.0); Mean Platelet Volume 10.7 fL (7.4-10.4); Platelet Count 30 thou/uL (130-400); RBC Distribution Width 13.5 % (11.5-14.5); Red Blood Cell (RBC) Count 3.14 mill/uL (4.20-5.40); White Blood Cell (WBC) Count 2.1 thou/uL (4.8-10.8)
[2021-12-05 06:57] LABS: Anion Gap 13 mmol/L (10-20); BUN (Urea Nitrogen) 24 mg/dL (9.8-20.1); Calc. Creatinine Clearance 47 mL/min (70-130); Calcium 8.9 mg/dL (7.8-10.44); Carbon Dioxide 20 mmol/L (23-31); Chloride 99 mmol/L (98-107); Glucose 98 mg/dL (83-110); Potassium 3.6 mmol/L (3.5-5.1); Sodium 128 mmol/L (136-145)
[2021-12-05] MEDS: Cholecalciferol 1,000 UNITS (25 MCG) TAB PO SCH (08:08)
[2021-12-05] MEDS: Ferrous Sulfate 325 MG TAB PO SCH (08:08)
[2021-12-05] MEDS: Furosemide 40 MG TAB PO SCH (08:08)
[2021-12-05] MEDS: Multivit, Therapeutic 1 TAB PO SCH (08:08)
[2021-12-05] MEDS: Magnesium Oxide 250 MG TAB PO SCH (08:08)
[2021-12-05] MEDS: Saccharomyces boulardii 250 MG CAP PO SCH (08:08)
[2021-12-05] MEDS ORDERED: Estrogens, Conjugated 30 GM TUBE VAG SCH (09:00)
[2021-12-05 09:57] VITALS: BP 118/69; TEMP 97.4
== END 2021-12-05 11:12 | disposition home or self-care (01) | DRG 441 ==
LOC: ERS 21:44 → T4-A 11-30 02:36 → OBSVTOIN 11-30 15:09
PROVIDERS: ADMIT Student in an Organized Health Care Education/Training Program; ATTEND Internal Medicine
DX: K75.81 Nonalcoholic steatohepatitis (NASH) (principal); G92.8 Other toxic encephalopathy; K72.00 Acute and subacute hepatic failure without coma; N39.0 Urinary tract infection, site not specified; N17.9 Acute kidney failure, unspecified; E87.1 Hypo-osmolality and hyponatremia; K76.6 Portal hypertension; D61.818 Other pancytopenia; Z20.822 Contact with and (suspected) exposure to COVID-19; D69.6 Thrombocytopenia, unspecified; E78.5 Hyperlipidemia, unspecified; I48.0 Paroxysmal atrial fibrillation; I35.0 Nonrheumatic aortic (valve) stenosis; M10.9 Gout, unspecified; M06.9 Rheumatoid arthritis, unspecified; Z60.2 Problems related to living alone; K74.60 Unspecified cirrhosis of liver; J34.89 Other specified disorders of nose and nasal sinuses; I12.9 Hypertensive chronic kidney disease with stage 1 through stage 4 chronic kidney disease, or unspecified chronic kidney disease; N18.30 Chronic kidney disease, stage 3 unspecified; G89.4 Chronic pain syndrome; M54.9 Dorsalgia, unspecified; Z88.6 Allergy status to analgesic agent; Z95.0 Presence of cardiac pacemaker; Z79.899 Other long term (current) drug therapy; Z79.890 Hormone replacement therapy; Z90.89 Acquired absence of other organs; Z90.710 Acquired absence of both cervix and uterus; Z91.14 Patient's other noncompliance with medication regimen; Z90.721 Acquired absence of ovaries, unilateral
CPT/HCPCS: 36415; 51701; 70450; 71045; 74018; 80048; 80053; 80069; 81015; 82140; 82728; 83540; 83690; 83735; 83880; 84443; 84484; 85025; 87040; 87077; 87086; 87186; 93005; 96374; 96375; G0378; J0692; J0696; J2270; J2405; J3370; J3475; J3490; P9047; Q0162; U0003; U0005

== ENCOUNTER 2022-01-11 16:22 | Inpatient (IN) | payer MEDICARE, OTHER ==
[2022-01-11 17:09] LABS: #Eosinphils 0.1 thou/uL (0.0-0.7); #Lymphocytes 0.4 thou/uL (1.20-3.40); #Monocytes 0.7 thou/uL (0.11-0.59); #Neutrophils 5.9 thou/uL (1.40-6.50); %Basophils 0.3 % (0.0-1.0); %Eosinophils 1.6 % (0.0-10.0); %Monocytes 9.6 % (0.0-10.0); %Neutrophils 82.5 % (42.0-75.0); Hemoglobin 12.8 g/dL (12.0-16.0); Mean Corpuscular HGB CONC 32.4 g/dL (32.0-36.0); Mean Corpuscular Hemoglobin 30.5 pg (27.0-31.0); Mean Corpuscular Volume 94.1 fL (78.0-98.0); Mean Platelet Volume 9.9 fL (7.4-10.4); Platelet Count 59 thou/uL (130-400); RBC Distribution Width 15.7 % (11.5-14.5); Red Blood Cell (RBC) Count 4.19 mill/uL (4.20-5.40); White Blood Cell (WBC) Count 7.1 thou/uL (4.8-10.8)
[2022-01-11 17:32] LABS: ALT (SGPT) 23 U/L (8-55); AST (SGOT) 26 U/L (5-34); Albumin 3.3 g/dL (3.4-4.8); Alkaline Phosphatase 107 U/L (40-110); Anion Gap 13 mmol/L (10-20); BUN (Urea Nitrogen) 46 mg/dL (9.8-20.1); Bilirubin, Total 3.8 mg/dL (0.2-1.2); Calc. Creatinine Clearance 0 mL/min (70-130); Calcium 8.9 mg/dL (7.8-10.44); Carbon Dioxide 22 mmol/L (23-31); Chloride 99 mmol/L (98-107); Globulin 3.6 g/dL (2.4-3.5); Glucose 93 mg/dL (83-110); Potassium 5.3 mmol/L (3.5-5.1); Protein, Total 6.9 g/dL (5.8-8.1); Sodium 129 mmol/L (136-145)
[2022-01-11] MEDS ORDERED: Insulin Regular 300 UNITS/3 ML VIAL ONE (18:47)
[2022-01-11] MEDS ORDERED: Dextrose 50% Abboject 50 ML SYRINGE SLOW IVP SCH (19:15)
[2022-01-11] MEDS ORDERED: CALCIUM GLUC 1GM/NS 50ML BAG ONE (19:17)
[2022-01-11] MEDS ORDERED: LOKELMA 10 GM PACKET PO SCH (21:00)
[2022-01-11 22:31] VITALS: BMI 25.2
[2022-01-11] MEDS ORDERED: HYDROcodone/Acetaminophen 10/325 mg Tablet PO PRN (22:54)
[2022-01-11] MEDS: Ondansetron PF 4 MG/2 ML Vial IVP PRN (23:01)
[2022-01-12] MEDS: guaiFENesin 200 MG TAB PO PRN ×2 (03:07→06:52)
[2022-01-12] MEDS ORDERED: Benzonatate 100 MG CAP PO PRN (04:47)
[2022-01-12 04:59] LABS: #Lymphocytes 0.4 thou/uL (1.20-3.40); #Monocytes 0.4 thou/uL (0.11-0.59); #Neutrophils 2.2 thou/uL (1.40-6.50); %Basophils 1.6 % (0.0-1.0); %Eosinophils 0.7 % (0.0-10.0); %Lymphocytes 12.3 % (21.0-51.0); %Neutrophils 73.4 % (42.0-75.0); Hemoglobin 12.4 g/dL (12.0-16.0); Mean Corpuscular HGB CONC 31.9 g/dL (32.0-36.0); Mean Corpuscular Hemoglobin 31.4 pg (27.0-31.0); Mean Corpuscular Volume 98.4 fL (78.0-98.0); Platelet Count 51 thou/uL (130-400); RBC Distribution Width 15.7 % (11.5-14.5); Red Blood Cell (RBC) Count 3.94 mill/uL (4.20-5.40)
[2022-01-12 05:27] LABS: ALT (SGPT) 23 U/L (8-55); AST (SGOT) 26 U/L (5-34); Albumin 2.8 g/dL (3.4-4.8); Alkaline Phosphatase 82 U/L (40-110); Anion Gap 13 mmol/L (10-20); BUN (Urea Nitrogen) 40 mg/dL (9.8-20.1); Bilirubin, Total 4.5 mg/dL (0.2-1.2); Calc. Creatinine Clearance 26 mL/min (70-130); Calcium 8.7 mg/dL (7.8-10.44); Carbon Dioxide 20 mmol/L (23-31); Chloride 100 mmol/L (98-107); Globulin 3.4 g/dL (2.4-3.5); Glucose 87 mg/dL (83-110); Potassium 4.9 mmol/L (3.5-5.1); Protein, Total 6.2 g/dL (5.8-8.1); Sodium 128 mmol/L (136-145)
[2022-01-12] MEDS: Levothyroxine Sodium 125 MCG TAB PO SCH (05:41)
[2022-01-12] MEDS: HYDROcodone/Acetaminophen 10/325 mg Tablet PO PRN ×2 (06:52→16:12)
[2022-01-12] MEDS: Ondansetron PF 4 MG/2 ML Vial IVP PRN (10:16)
[2022-01-12 11:40] LABS: INR-International Normal Ratio 1.8; Prothrombin Time 20.9 sec (12.0-14.7)
[2022-01-12 11:41] LABS: PTT 53.2 sec (22.9-36.1)
[2022-01-12] MEDS ORDERED: Sodium Bicarbonate 2.5 MEQ/5 ML VIAL ONE (11:48)
[2022-01-12] MEDS ORDERED: Lidocaine 1% PF 5 ML VIAL ONE (11:48)
[2022-01-12] MEDS ORDERED: Lorazepam 2 MG/ML VIAL SLOW IVP PRN (14:47)
[2022-01-12] MEDS ORDERED: Ondansetron PF 4 MG/2 ML Vial IVP SCH (15:00)
[2022-01-12] MEDS: Guaifenesin DM 100-10/5 ML UDCUP PO PRN ×2 (16:12→21:52)
[2022-01-12] MEDS ORDERED: Sodium Chloride 0.9% 1,000 ML IV SCH (19:15)
[2022-01-12] MEDS ORDERED: Ciprofloxacin 500 MG TAB PO SCH (20:00)
[2022-01-12] MEDS ORDERED: Rifampin 300 MG CAP PO SCH (21:00)
[2022-01-12 21:06] LABS: Fluid, pH - Pleural Fld Greater than 7.50 (7.60 - 7.66)
[2022-01-12 21:43] LABS: RBC Count-Automated (BF) 1125 /cu.mm; WBC/Nucleated-Auto (BF) 270 /cu.mm
[2022-01-12 21:44] LABS: Body Fluid Source Thoracentesis Fluid; Clarity Clear (Clear); Tube # 1
[2022-01-12 21:45] LABS: BF Color Yellow
[2022-01-12] MEDS: Flecainide 50 MG TAB PO SCH (21:51)
[2022-01-12] MEDS: Ferrous Sulfate 325 MG TAB PO SCH (21:51)
[2022-01-12] MEDS: Acetaminophen 325 MG TAB PO PRN (21:52)
[2022-01-12 21:57] LABS: BF Segmented Neutrophils 39 %; Cell Count Non Hematic 35 %; Lymphocytes 26 %
[2022-01-12] MEDS ORDERED: Sodium Chloride 0.9% 500 ML IV SCH (23:45)
[2022-01-13] MEDS: HYDROcodone/Acetaminophen 10/325 mg Tablet PO PRN ×3 (00:15→22:22)
[2022-01-13] MEDS: Acetaminophen 325 MG TAB PO PRN (04:29)
[2022-01-13] MEDS: Levothyroxine Sodium 125 MCG TAB PO SCH (04:29)
[2022-01-13] MEDS: Guaifenesin DM 100-10/5 ML UDCUP PO PRN ×4 (04:52→22:21)
[2022-01-13] MEDS ORDERED: Spironolactone 100 MG TAB PO SCH (08:00)
[2022-01-13] MEDS ORDERED: Saccharomyces boulardii 250 MG CAP PO SCH (09:00)
[2022-01-13] MEDS ORDERED: Furosemide 40 MG TAB PO SCH (09:00)
[2022-01-13] MEDS: Flecainide 50 MG TAB PO SCH (09:52)
[2022-01-13 10:22] LABS: Anion Gap 15 mmol/L (10-20); BUN (Urea Nitrogen) 35 mg/dL (9.8-20.1); Calc. Creatinine Clearance 33 mL/min (70-130); Calcium 8.6 mg/dL (7.8-10.44); Carbon Dioxide 21 mmol/L (23-31); Chloride 101 mmol/L (98-107); Glucose 103 mg/dL (83-110); Potassium 4.5 mmol/L (3.5-5.1); Sodium 132 mmol/L (136-145)
[2022-01-13] MEDS: Sodium Chloride 0.9% 1,000 ML IV SCH (11:56)
[2022-01-13] MEDS: Ferrous Sulfate 325 MG TAB PO SCH ×2 (12:31→18:44)
[2022-01-13] MEDS ORDERED: Digoxin 0.5 MG/2 ML AMP SLOW IVP SCH (17:30)
[2022-01-13] MEDS: Diltiazem HCl 125 MG in Premix Bag 1 BAG IVPB SCH (18:37)
[2022-01-13] MEDS: Cyclobenzaprine 10 MG TAB PO PRN (22:23)
[2022-01-14] MEDS: Sodium Chloride 0.9% 1,000 ML IV SCH (01:38)
[2022-01-14] MEDS: Cyclobenzaprine 10 MG TAB PO PRN ×2 (04:12→20:57)
[2022-01-14] MEDS: Acetaminophen 325 MG TAB PO PRN (04:12)
[2022-01-14 05:43] LABS: Hemoglobin 11.5 g/dL (12.0-16.0); Mean Corpuscular HGB CONC 32.9 g/dL (32.0-36.0); Mean Corpuscular Hemoglobin 31.3 pg (27.0-31.0); Mean Corpuscular Volume 95.1 fL (78.0-98.0); Mean Platelet Volume 10.7 fL (7.4-10.4); Platelet Count 25 thou/uL (130-400); RBC Distribution Width 15.4 % (11.5-14.5); Red Blood Cell (RBC) Count 3.69 mill/uL (4.20-5.40)
[2022-01-14 05:44] LABS: Band 8 % (5-11); Hypochromia SLIGHT = 6-15 cells (100X) (0-5/hpf); Lymphocytes 13 % (21-51); MDiff Complete? YES; Monocytes 5 % (0-10); Neutrophil 74 % (42-75); Platelet Morphology Comment Appears Decreased
[2022-01-14] MEDS: Levothyroxine Sodium 125 MCG TAB PO SCH (05:44)
[2022-01-14 05:52] LABS: Anion Gap 12 mmol/L (10-20); BUN (Urea Nitrogen) 28 mg/dL (9.8-20.1); Calc. Creatinine Clearance 50 mL/min (70-130); Calcium 8.5 mg/dL (7.8-10.44); Carbon Dioxide 19 mmol/L (23-31); Chloride 104 mmol/L (98-107); Glucose 89 mg/dL (83-110); Potassium 4.2 mmol/L (3.5-5.1); Sodium 131 mmol/L (136-145)
[2022-01-14] MEDS ORDERED: Digoxin 0.5 MG/2 ML AMP SLOW IVP SCH (06:00)
[2022-01-14] MEDS: Ferrous Sulfate 325 MG TAB PO SCH ×2 (09:15→16:20)
[2022-01-14] MEDS: ALPRAZolam 0.25 MG TAB PO SCH ×2 (11:33→12:06)
[2022-01-14] MEDS: HYDROcodone/Acetaminophen 10/325 mg Tablet PO PRN ×2 (12:06→20:56)
[2022-01-14] MEDS ORDERED: Furosemide 20 MG TAB PO SCH (15:15)
[2022-01-14] MEDS: Pramipexole Di-HCl 0.125 MG TAB PO SCH ×2 (16:20→20:56)
[2022-01-14] MEDS: Guaifenesin DM 100-10/5 ML UDCUP PO PRN ×2 (17:49→20:55)
[2022-01-15] MEDS: Guaifenesin DM 100-10/5 ML UDCUP PO PRN ×4 (01:53→20:46)
[2022-01-15 05:12] LABS: Anion Gap 13 mmol/L (10-20); BUN (Urea Nitrogen) 26 mg/dL (9.8-20.1); Calc. Creatinine Clearance 55 mL/min (70-130); Calcium 8.5 mg/dL (7.8-10.44); Carbon Dioxide 17 mmol/L (23-31); Chloride 104 mmol/L (98-107); Glucose 83 mg/dL (83-110); Potassium 4.6 mmol/L (3.5-5.1); Sodium 129 mmol/L (136-145)
[2022-01-15] MEDS: HYDROcodone/Acetaminophen 10/325 mg Tablet PO PRN ×2 (05:13→15:46)
[2022-01-15] MEDS: Levothyroxine Sodium 125 MCG TAB PO SCH (05:14)
[2022-01-15 05:54] LABS: #Eosinphils 0.2 thou/uL (0.0-0.7); #Lymphocytes 0.5 thou/uL (1.20-3.40); #Monocytes 0.4 thou/uL (0.11-0.59); #Neutrophils 1.8 thou/uL (1.40-6.50); %Eosinophils 6.2 % (0.0-10.0); %Lymphocytes 16.3 % (21.0-51.0); %Monocytes 12.9 % (0.0-10.0); %Neutrophils 64.6 % (42.0-75.0); Critical Call w/ Read Back 2NO.RV; Hemoglobin 12.9 g/dL (12.0-16.0); Mean Corpuscular HGB CONC 34.1 g/dL (32.0-36.0); Mean Corpuscular Hemoglobin 32.1 pg (27.0-31.0); Mean Corpuscular Volume 94.1 fL (78.0-98.0); Mean Platelet Volume 10.5 fL (7.4-10.4); Platelet Count 26 thou/uL (130-400); Platelet Morphology Comment Appears Decreased; RBC Morphology Normal; Red Blood Cell (RBC) Count 4.03 mill/uL (4.20-5.40); White Blood Cell (WBC) Count 2.8 thou/uL (4.8-10.8)
[2022-01-15] MEDS: Ferrous Sulfate 325 MG TAB PO SCH ×2 (07:51→15:46)
[2022-01-15] MEDS: Pramipexole Di-HCl 0.125 MG TAB PO SCH ×3 (07:51→20:46)
[2022-01-15] MEDS: Ondansetron PF 4 MG/2 ML Vial IVP PRN (09:56)
[2022-01-15] MEDS ORDERED: Flecainide 50 MG TAB PO SCH (10:45)
[2022-01-15] MEDS ORDERED: Digoxin 0.5 MG/2 ML AMP SLOW IVP SCH (10:45)
[2022-01-15] MEDS: Diltiazem HCl 125 MG in Premix Bag 1 BAG IVPB SCH (17:26)
[2022-01-15] MEDS: Flecainide 50 MG TAB PO SCH (20:46)
[2022-01-15] MEDS: Cyclobenzaprine 10 MG TAB PO PRN (20:46)
[2022-01-16] MEDS: HYDROcodone/Acetaminophen 10/325 mg Tablet PO PRN ×3 (00:13→22:01)
[2022-01-16 05:01] LABS: #Eosinphils 0.2 thou/uL (0.0-0.7); #Lymphocytes 0.6 thou/uL (1.20-3.40); #Monocytes 0.3 thou/uL (0.11-0.59); #Neutrophils 1.9 thou/uL (1.40-6.50); %Basophils 0.4 % (0.0-1.0); %Eosinophils 7.8 % (0.0-10.0); %Lymphocytes 20.1 % (21.0-51.0); %Neutrophils 60.7 % (42.0-75.0); Hemoglobin 11.9 g/dL (12.0-16.0); Mean Corpuscular HGB CONC 32.8 g/dL (32.0-36.0); Mean Corpuscular Hemoglobin 30.8 pg (27.0-31.0); Mean Corpuscular Volume 94.1 fL (78.0-98.0); Mean Platelet Volume 9.8 fL (7.4-10.4); Platelet Count 31 thou/uL (130-400); RBC Distribution Width 14.6 % (11.5-14.5); Red Blood Cell (RBC) Count 3.85 mill/uL (4.20-5.40); White Blood Cell (WBC) Count 3.1 thou/uL (4.8-10.8)
[2022-01-16 05:16] LABS: Anion Gap 11 mmol/L (10-20); BUN (Urea Nitrogen) 22 mg/dL (9.8-20.1); Calc. Creatinine Clearance 50 mL/min (70-130); Calcium 8.1 mg/dL (7.8-10.44); Carbon Dioxide 21 mmol/L (23-31); Chloride 101 mmol/L (98-107); Glucose 86 mg/dL (83-110); Potassium 4.5 mmol/L (3.5-5.1); Sodium 128 mmol/L (136-145)
[2022-01-16] MEDS: Guaifenesin DM 100-10/5 ML UDCUP PO PRN ×3 (06:24→22:02)
[2022-01-16] MEDS: Levothyroxine Sodium 125 MCG TAB PO SCH (06:24)
[2022-01-16] MEDS: Ferrous Sulfate 325 MG TAB PO SCH ×2 (08:35→16:13)
[2022-01-16] MEDS: Flecainide 50 MG TAB PO SCH ×2 (08:35→22:01)
[2022-01-16] MEDS: Pramipexole Di-HCl 0.125 MG TAB PO SCH ×3 (10:09→22:01)
[2022-01-16] MEDS: Cyclobenzaprine 10 MG TAB PO PRN (22:06)
[2022-01-17] MEDS: Guaifenesin DM 100-10/5 ML UDCUP PO PRN ×4 (04:01→22:20)
[2022-01-17 04:58] LABS: #Eosinphils 0.2 thou/uL (0.0-0.7); #Lymphocytes 0.8 thou/uL (1.20-3.40); #Monocytes 0.3 thou/uL (0.11-0.59); #Neutrophils 1.9 thou/uL (1.40-6.50); %Eosinophils 5.2 % (0.0-10.0); %Lymphocytes 24.1 % (21.0-51.0); %Monocytes 10.1 % (0.0-10.0); %Neutrophils 60.6 % (42.0-75.0); Hemoglobin 11.8 g/dL (12.0-16.0); Mean Corpuscular HGB CONC 32.8 g/dL (32.0-36.0); Mean Corpuscular Hemoglobin 30.8 pg (27.0-31.0); Mean Corpuscular Volume 93.9 fL (78.0-98.0); Mean Platelet Volume 10.2 fL (7.4-10.4); Platelet Count 30 thou/uL (130-400); RBC Distribution Width 14.5 % (11.5-14.5); Red Blood Cell (RBC) Count 3.82 mill/uL (4.20-5.40); White Blood Cell (WBC) Count 3.2 thou/uL (4.8-10.8)
[2022-01-17 05:14] LABS: Anion Gap 11 mmol/L (10-20); BUN (Urea Nitrogen) 18 mg/dL (9.8-20.1); Calc. Creatinine Clearance 59 mL/min (70-130); Calcium 7.9 mg/dL (7.8-10.44); Carbon Dioxide 20 mmol/L (23-31); Chloride 99 mmol/L (98-107); Glucose 90 mg/dL (83-110); Sodium 126 mmol/L (136-145)
[2022-01-17] MEDS: Levothyroxine Sodium 125 MCG TAB PO SCH (06:02)
[2022-01-17] MEDS: HYDROcodone/Acetaminophen 10/325 mg Tablet PO PRN ×2 (06:03→16:51)
[2022-01-17] MEDS: Pramipexole Di-HCl 0.125 MG TAB PO SCH ×3 (09:10→22:21)
[2022-01-17] MEDS: Furosemide 40 MG TAB PO SCH (09:10)
[2022-01-17] MEDS: Flecainide 50 MG TAB PO SCH ×2 (09:11→22:20)
[2022-01-17] MEDS: Spironolactone 25 MG TAB PO SCH (09:11)
[2022-01-17] MEDS: Ferrous Sulfate 325 MG TAB PO SCH ×2 (09:11→16:53)
[2022-01-17] MEDS ORDERED: Furosemide 40 MG/4 ML VIAL SLOW IVP SCH (11:45)
[2022-01-17] MEDS: Cyclobenzaprine 10 MG TAB PO PRN (22:20)
[2022-01-18] MEDS: HYDROcodone/Acetaminophen 10/325 mg Tablet PO PRN ×2 (02:12→20:12)
[2022-01-18] MEDS: Guaifenesin DM 100-10/5 ML UDCUP PO PRN ×2 (02:12→20:12)
[2022-01-18 04:51] LABS: Anion Gap 10 mmol/L (10-20); BUN (Urea Nitrogen) 16 mg/dL (9.8-20.1); Calc. Creatinine Clearance 56 mL/min (70-130); Calcium 7.7 mg/dL (7.8-10.44); Carbon Dioxide 22 mmol/L (23-31); Chloride 96 mmol/L (98-107); Glucose 87 mg/dL (83-110); Potassium 3.5 mmol/L (3.5-5.1); Sodium 124 mmol/L (136-145)
[2022-01-18 05:15] LABS: #Eosinphils 0.1 thou/uL (0.0-0.7); #Lymphocytes 0.6 thou/uL (1.20-3.40); #Monocytes 0.3 thou/uL (0.11-0.59); #Neutrophils 1.7 thou/uL (1.40-6.50); %Basophils 0.3 % (0.0-1.0); %Eosinophils 4.8 % (0.0-10.0); %Lymphocytes 22.1 % (21.0-51.0); %Neutrophils 62.9 % (42.0-75.0); Critical Call w/ Read Back 2NO.AI; Hemoglobin 10.6 g/dL (12.0-16.0); Hypochromia SLIGHT = 6-15 cells (100X) (0-5/hpf); Lymphocytes 40 % (21-51); MDiff Complete? YES; Mean Corpuscular Hemoglobin 30.5 pg (27.0-31.0); Mean Corpuscular Volume 92.4 fL (78.0-98.0); Mean Platelet Volume 10.5 fL (7.4-10.4); Neutrophil 60 % (42-75); Platelet Count 27 thou/uL (130-400); Platelet Morphology Comment Appears Decreased; RBC Distribution Width 14.2 % (11.5-14.5); Red Blood Cell (RBC) Count 3.48 mill/uL (4.20-5.40); White Blood Cell (WBC) Count 2.7 thou/uL (4.8-10.8)
[2022-01-18] MEDS: Levothyroxine Sodium 125 MCG TAB PO SCH (06:21)
[2022-01-18] MEDS: Furosemide 40 MG TAB PO SCH (09:01)
[2022-01-18] MEDS: Flecainide 50 MG TAB PO SCH ×2 (09:11→20:11)
[2022-01-18] MEDS: Ferrous Sulfate 325 MG TAB PO SCH ×2 (09:11→17:23)
[2022-01-18] MEDS: Furosemide 40 MG/4 ML VIAL SLOW IVP SCH ×2 (09:12→13:28)
[2022-01-18] MEDS: Spironolactone 25 MG TAB PO SCH (09:12)
[2022-01-18] MEDS: Pramipexole Di-HCl 0.125 MG TAB PO SCH ×3 (09:13→20:10)
[2022-01-19] MEDS: Levothyroxine Sodium 125 MCG TAB PO SCH (04:09)
[2022-01-19] MEDS: HYDROcodone/Acetaminophen 10/325 mg Tablet PO PRN ×2 (04:09→12:57)
[2022-01-19] MEDS: Guaifenesin DM 100-10/5 ML UDCUP PO PRN (04:10)
[2022-01-19 04:47] LABS: Mean Corpuscular HGB CONC 33.7 g/dL (32.0-36.0); Mean Corpuscular Hemoglobin 30.9 pg (27.0-31.0); Mean Corpuscular Volume 91.7 fL (78.0-98.0); Mean Platelet Volume 10.2 fL (7.4-10.4); Platelet Count 28 thou/uL (130-400); RBC Distribution Width 14.1 % (11.5-14.5); Red Blood Cell (RBC) Count 3.88 mill/uL (4.20-5.40); White Blood Cell (WBC) Count 3.1 thou/uL (4.8-10.8)
[2022-01-19 04:50] LABS: Anion Gap 12 mmol/L (10-20); BUN (Urea Nitrogen) 16 mg/dL (9.8-20.1); Calc. Creatinine Clearance 55 mL/min (70-130); Calcium 7.9 mg/dL (7.8-10.44); Carbon Dioxide 22 mmol/L (23-31); Chloride 95 mmol/L (98-107); Glucose 78 mg/dL (83-110); Potassium 3.2 mmol/L (3.5-5.1); Sodium 126 mmol/L (136-145)
[2022-01-19 05:22] LABS: #Eosinphils 0.1 thou/uL (0.0-0.7); #Lymphocytes 0.7 thou/uL (1.20-3.40); #Monocytes 0.3 thou/uL (0.11-0.59); %Basophils 0.2 % (0.0-1.0); %Eosinophils 3.5 % (0.0-10.0); %Lymphocytes 21.5 % (21.0-51.0); %Monocytes 10.2 % (0.0-10.0); %Neutrophils 64.6 % (42.0-75.0); Platelet Morphology Comment Appears Decreased
[2022-01-19] MEDS: Furosemide 40 MG/4 ML VIAL SLOW IVP SCH ×2 (08:30→12:58)
[2022-01-19] MEDS: Flecainide 50 MG TAB PO SCH (08:30)
[2022-01-19] MEDS: Spironolactone 25 MG TAB PO SCH (08:30)
[2022-01-19] MEDS: Ferrous Sulfate 325 MG TAB PO SCH (08:30)
[2022-01-19] MEDS: Pramipexole Di-HCl 0.125 MG TAB PO SCH (08:32)
[2022-01-19] MEDS ORDERED: Spironolactone 25 MG TAB PO SCH (09:15)
[2022-01-19] MEDS ORDERED: Potassium Chloride 20 MEQ TAB PO SCH (09:15)
[2022-01-19] MEDS ORDERED: Digoxin 0.5 MG/2 ML AMP SLOW IVP SCH (12:15)
[2022-01-19] MEDS ORDERED: Promethazine HCl 6.25 MG/5 ML Syrup PO PRN (12:27)
[2022-01-19] MEDS ORDERED: Lorazepam 2 MG/ML VIAL SLOW IVP PRN (12:29)
[2022-01-19 12:57] VITALS: BP 132/84; TEMP 98
[2022-01-20] MEDS ORDERED: Spironolactone 25 MG TAB PO SCH (08:00)
== END 2022-01-19 15:30 | disposition home health service (06) | DRG 177 ==
LOC: ERS 16:22 → 2NO 19:05 → OBSVTOIN 01-13 20:10
PROVIDERS: ADMIT Internal Medicine; ATTEND Internal Medicine
PROC: 8E0ZXY6 Isolation (ICD-10-PCS; 2022-01-11)
PROC: 0W993ZZ Drainage of Right Pleural Cavity, Percutaneous Approach (ICD-10-PCS; principal; 2022-01-12)
DX: U07.1 COVID-19 (principal); Z66 Do not resuscitate; I50.21 Acute systolic (congestive) heart failure; J12.82 Pneumonia due to coronavirus disease 2019; N17.9 Acute kidney failure, unspecified; D61.818 Other pancytopenia; E87.1 Hypo-osmolality and hyponatremia; R18.8 Other ascites; J91.8 Pleural effusion in other conditions classified elsewhere; I48.19 Other persistent atrial fibrillation; I13.0 Hypertensive heart and chronic kidney disease with heart failure and stage 1 through stage 4 chronic kidney disease, or unspecified chronic kidney disease; E78.5 Hyperlipidemia, unspecified; K75.81 Nonalcoholic steatohepatitis (NASH); K74.60 Unspecified cirrhosis of liver; I35.0 Nonrheumatic aortic (valve) stenosis; E03.9 Hypothyroidism, unspecified; G89.29 Other chronic pain; M54.9 Dorsalgia, unspecified; M06.9 Rheumatoid arthritis, unspecified; M10.9 Gout, unspecified; N18.30 Chronic kidney disease, stage 3 unspecified; E87.5 Hyperkalemia; G25.81 Restless legs syndrome; I49.5 Sick sinus syndrome; I25.119 Atherosclerotic heart disease of native coronary artery with unspecified angina pectoris; I95.9 Hypotension, unspecified; Z87.440 Personal history of urinary (tract) infections; Z88.5 Allergy status to narcotic agent; Z79.899 Other long term (current) drug therapy; Z79.890 Hormone replacement therapy; Z95.0 Presence of cardiac pacemaker; Z90.89 Acquired absence of other organs; Z90.710 Acquired absence of both cervix and uterus; Z90.721 Acquired absence of ovaries, unilateral; Z95.828 Presence of other vascular implants and grafts; Z82.3 Family history of stroke; Z82.49 Family history of ischemic heart disease and other diseases of the circulatory system; Z90.49 Acquired absence of other specified parts of digestive tract; Z90.722 Acquired absence of ovaries, bilateral; Z98.49 Cataract extraction status, unspecified eye; Z98.42 Cataract extraction status, left eye; Z98.41 Cataract extraction status, right eye
CPT/HCPCS: 32555; 36415; 36416; 71045; 71250; 76705; 80048; 80053; 82945; 83605; 83615; 83880; 83986; 84157; 84484; 85025; 85060; 85610; 85730; 87040; 87070; 87205; 89051; 93005; 96374; 96375; 96376; G0378; J0610; J1160; J1815; J1940; J2405; J7050; J7999; U0003; U0005

== ENCOUNTER 2022-01-20 17:05 | Inpatient (IN) | payer MEDICARE ==
[2022-01-20 17:48] LABS: #Eosinphils 0.3 thou/uL (0.0-0.7); #Lymphocytes 1.1 thou/uL (1.20-3.40); #Monocytes 0.8 thou/uL (0.11-0.59); #Neutrophils 6.9 thou/uL (1.40-6.50); %Basophils 0.1 % (0.0-1.0); %Lymphocytes 11.6 % (21.0-51.0); %Monocytes 8.9 % (0.0-10.0); %Neutrophils 76.3 % (42.0-75.0); Hemoglobin 13.3 g/dL (12.0-16.0); Mean Corpuscular HGB CONC 33.3 g/dL (32.0-36.0); Mean Corpuscular Hemoglobin 30.5 pg (27.0-31.0); Mean Corpuscular Volume 91.7 fL (78.0-98.0); Mean Platelet Volume 10.8 fL (7.4-10.4); Platelet Count 70 thou/uL (130-400); RBC Distribution Width 14.5 % (11.5-14.5); Red Blood Cell (RBC) Count 4.36 mill/uL (4.20-5.40)
[2022-01-20 17:58] LABS: INR-International Normal Ratio 1.7; Prothrombin Time 20.4 sec (12.0-14.7)
[2022-01-20 17:59] LABS: PTT 48.7 sec (22.9-36.1)
[2022-01-20 18:26] LABS: Albumin 2.8 g/dL (3.4-4.8)
[2022-01-20 18:27] LABS: Chloride 94 mmol/L (98-107); Sodium 125 mmol/L (136-145)
[2022-01-20 18:28] LABS: Calcium 7.8 mg/dL (7.8-10.44); Glucose 95 mg/dL (83-110)
[2022-01-20 18:29] LABS: Protein, Total 6.8 g/dL (5.8-8.1)
[2022-01-20 18:30] LABS: Anion Gap 17 mmol/L (10-20); Bilirubin, Total 1.2 mg/dL (0.2-1.2); Carbon Dioxide 19 mmol/L (23-31)
[2022-01-20 18:31] LABS: Alkaline Phosphatase 96 U/L (40-110)
[2022-01-20 18:33] LABS: BUN (Urea Nitrogen) 20 mg/dL (9.8-20.1)
[2022-01-20 18:34] LABS: ALT (SGPT) 23 U/L (8-55); AST (SGOT) 55 U/L (5-34); Magnesium 1.6 mg/dL (1.6-2.6)
[2022-01-20 18:35] LABS: CK (CPK) 44 U/L (29-168)
[2022-01-20 18:40] LABS: Calc. Creatinine Clearance 0 mL/min (70-130); Potassium 5.4 mmol/L (3.5-5.1)
[2022-01-20 18:49] LABS: Bacteria/HPF None Seen HPF (None Seen); Bilirubin Negative (Negative); Blood, Urine Negative (Negative); Clarity Turbid (Clear); Glucose, Urine (Dipstick) Normal (Negative); Ketone, Urine Negative (Negative); Leukocyte 500 Leu/uL (Negative); Nitrite Negative (Negative); Protein, Urine (Dipstick) Negative (Neg-Trace); RBC/HPF 0-3 HPF (0-3); Specific Gravity, Urine 1.016 (1.002-1.036); Urobilinogen Normal mg/dL (Less than 2); WBC/HPF 21-50 HPF (0-3); pH, Urine 5.5 (5.0-9.0)
[2022-01-20] MEDS ORDERED: Acetaminophen 325 MG TAB PO PRN (22:06)
[2022-01-20] MEDS ORDERED: Ondansetron PF 4 MG/2 ML Vial IVP PRN (22:06)
[2022-01-20] MEDS ORDERED: Acetaminophen 650 MG Suppository PR PRN (22:06)
[2022-01-20] MEDS ORDERED: Ondansetron ODT 4 MG TAB PO PRN (22:06)
[2022-01-20] MEDS: Sodium Chloride 0.9% 1,000 ML IV SCH (22:38)
[2022-01-20 23:13] VITALS: BMI 26.0
[2022-01-21 00:10] LABS: Anion Gap 14 mmol/L (10-20); BUN (Urea Nitrogen) 21 mg/dL (9.8-20.1); Calc. Creatinine Clearance 45 mL/min (70-130); Calcium 7.7 mg/dL (7.8-10.44); Carbon Dioxide 18 mmol/L (23-31); Chloride 97 mmol/L (98-107); Glucose 89 mg/dL (83-110); Potassium 4.1 mmol/L (3.5-5.1); Sodium 125 mmol/L (136-145)
[2022-01-21] MEDS: HYDROcodone/Acetaminophen 10/325 mg Tablet PO PRN ×3 (00:12→17:58)
[2022-01-21 05:03] LABS: #Eosinphils 0.1 thou/uL (0.0-0.7); #Lymphocytes 0.9 thou/uL (1.20-3.40); #Monocytes 0.5 thou/uL (0.11-0.59); #Neutrophils 2.6 thou/uL (1.40-6.50); %Basophils 0.3 % (0.0-1.0); %Eosinophils 2.2 % (0.0-10.0); %Lymphocytes 21.3 % (21.0-51.0); %Monocytes 12.2 % (0.0-10.0); Hemoglobin 12.4 g/dL (12.0-16.0); Mean Corpuscular HGB CONC 32.7 g/dL (32.0-36.0); Mean Corpuscular Hemoglobin 30.3 pg (27.0-31.0); Mean Corpuscular Volume 92.8 fL (78.0-98.0); Mean Platelet Volume 10.5 fL (7.4-10.4); Platelet Count 40 thou/uL (130-400); Platelet Morphology Comment Appears Decreased; RBC Distribution Width 14.5 % (11.5-14.5); White Blood Cell (WBC) Count 4.1 thou/uL (4.8-10.8)
[2022-01-21 05:04] LABS: Anion Gap 12 mmol/L (10-20); BUN (Urea Nitrogen) 21 mg/dL (9.8-20.1); Calc. Creatinine Clearance 49 mL/min (70-130); Calcium 7.7 mg/dL (7.8-10.44); Carbon Dioxide 19 mmol/L (23-31); Chloride 99 mmol/L (98-107); Glucose 66 mg/dL (83-110); Potassium 3.7 mmol/L (3.5-5.1); Sodium 126 mmol/L (136-145)
[2022-01-21] MEDS: Levothyroxine Sodium 125 MCG TAB PO SCH (06:05)
[2022-01-21] MEDS: Flecainide 50 MG TAB PO SCH ×2 (09:09→22:10)
[2022-01-21] MEDS: Furosemide 40 MG TAB PO SCH (09:09)
[2022-01-21] MEDS: Spironolactone 100 MG TAB PO SCH (09:09)
[2022-01-21] MEDS: Sodium Chloride 0.9% 1,000 ML IV SCH (09:12)
[2022-01-21 17:24] LABS: Anion Gap 10 mmol/L (10-20); BUN (Urea Nitrogen) 20 mg/dL (9.8-20.1); Calc. Creatinine Clearance 52 mL/min (70-130); Calcium 7.7 mg/dL (7.8-10.44); Carbon Dioxide 21 mmol/L (23-31); Chloride 99 mmol/L (98-107); Glucose 111 mg/dL (83-110); Potassium 3.7 mmol/L (3.5-5.1); Sodium 126 mmol/L (136-145)
[2022-01-22] MEDS: HYDROcodone/Acetaminophen 10/325 mg Tablet PO PRN ×3 (02:06→19:45)
[2022-01-22 05:33] LABS: Anion Gap 12 mmol/L (10-20); BUN (Urea Nitrogen) 19 mg/dL (9.8-20.1); Calc. Creatinine Clearance 56 mL/min (70-130); Calcium 7.8 mg/dL (7.8-10.44); Carbon Dioxide 19 mmol/L (23-31); Chloride 100 mmol/L (98-107); Glucose 77 mg/dL (83-110); Potassium 3.5 mmol/L (3.5-5.1); Sodium 127 mmol/L (136-145)
[2022-01-22] MEDS: Levothyroxine Sodium 125 MCG TAB PO SCH (05:49)
[2022-01-22] MEDS: Furosemide 40 MG TAB PO SCH (10:04)
[2022-01-22] MEDS: Flecainide 50 MG TAB PO SCH ×2 (10:04→19:45)
[2022-01-22] MEDS: Spironolactone 100 MG TAB PO SCH (10:04)
[2022-01-22] MEDS: Vancomycin 25 MG/ML Oral SOLN PO SCH ×3 (13:03→22:52)
[2022-01-22] MEDS: Sodium Chloride 0.9% 1,000 ML IV SCH (13:04)
[2022-01-22] MEDS: Benzonatate 100 MG CAP PO PRN ×2 (13:08→19:44)
[2022-01-22 14:53] LABS: Campy jejuni + coli by PCR Negative (Negative); STEC Shiga Toxin 1+2 Negative (Negative); Salmonella spp. by PCR Negative (Negative); Shigella spp + EIEC by PCR Negative (Negative)
[2022-01-22] MEDS: GUAIFENESIN SF SOLN 200 MG/10 ML UDCUP PO PRN (22:53)
[2022-01-23] MEDS: Benzonatate 100 MG CAP PO PRN ×5 (01:20→23:22)
[2022-01-23] MEDS: HYDROcodone/Acetaminophen 10/325 mg Tablet PO PRN ×3 (04:47→21:47)
[2022-01-23] MEDS: Levothyroxine Sodium 125 MCG TAB PO SCH (04:51)
[2022-01-23] MEDS: GUAIFENESIN SF SOLN 200 MG/10 ML UDCUP PO PRN ×3 (04:56→20:46)
[2022-01-23] MEDS: Vancomycin 25 MG/ML Oral SOLN PO SCH ×4 (05:31→23:22)
[2022-01-23 08:44] LABS: Anion Gap 12 mmol/L (10-20); BUN (Urea Nitrogen) 14 mg/dL (9.8-20.1); Calc. Creatinine Clearance 60 mL/min (70-130); Calcium 7.8 mg/dL (7.8-10.44); Carbon Dioxide 22 mmol/L (23-31); Chloride 98 mmol/L (98-107); Glucose 80 mg/dL (83-110); Magnesium 1.4 mg/dL (1.6-2.6); Potassium 3.8 mmol/L (3.5-5.1); Sodium 128 mmol/L (136-145)
[2022-01-23] MEDS: Sodium Chloride 0.9% 1,000 ML IV SCH (10:05)
[2022-01-23] MEDS: Flecainide 50 MG TAB PO SCH ×2 (10:06→20:46)
[2022-01-23] MEDS: Spironolactone 100 MG TAB PO SCH (10:06)
[2022-01-23] MEDS ORDERED: Magnesium 2 GM/50 ML(in water) 2 GM in Premix Bag 1 BAG IVPB SCH (16:00)
[2022-01-24] MEDS: Levothyroxine Sodium 125 MCG TAB PO SCH (04:49)
[2022-01-24] MEDS: Vancomycin 25 MG/ML Oral SOLN PO SCH ×3 (04:50→17:30)
[2022-01-24] MEDS: GUAIFENESIN SF SOLN 200 MG/10 ML UDCUP PO PRN ×3 (04:50→22:10)
[2022-01-24 05:52] LABS: Anion Gap 14 mmol/L (10-20); BUN (Urea Nitrogen) 12 mg/dL (9.8-20.1); Calc. Creatinine Clearance 60 mL/min (70-130); Calcium 8.2 mg/dL (7.8-10.44); Carbon Dioxide 21 mmol/L (23-31); Chloride 100 mmol/L (98-107); Glucose 82 mg/dL (83-110); Potassium 3.9 mmol/L (3.5-5.1); Sodium 131 mmol/L (136-145)
[2022-01-24] MEDS: HYDROcodone/Acetaminophen 10/325 mg Tablet PO PRN ×3 (06:15→23:05)
[2022-01-24] MEDS: Furosemide 40 MG TAB PO SCH (09:27)
[2022-01-24] MEDS: Flecainide 50 MG TAB PO SCH ×2 (09:27→22:09)
[2022-01-24] MEDS: Spironolactone 100 MG TAB PO SCH (09:27)
[2022-01-24] MEDS: Benzonatate 100 MG CAP PO PRN ×2 (14:46→22:10)
[2022-01-25] MEDS: Vancomycin 25 MG/ML Oral SOLN PO SCH ×3 (01:12→11:47)
[2022-01-25 04:25] LABS: Anion Gap 12 mmol/L (10-20); BUN (Urea Nitrogen) 12 mg/dL (9.8-20.1); Calc. Creatinine Clearance 63 mL/min (70-130); Calcium 7.9 mg/dL (7.8-10.44); Carbon Dioxide 22 mmol/L (23-31); Chloride 100 mmol/L (98-107); Glucose 86 mg/dL (83-110); Potassium 3.7 mmol/L (3.5-5.1); Sodium 130 mmol/L (136-145)
[2022-01-25] MEDS: Levothyroxine Sodium 125 MCG TAB PO SCH (05:50)
[2022-01-25] MEDS: GUAIFENESIN SF SOLN 200 MG/10 ML UDCUP PO PRN ×2 (05:50→11:52)
[2022-01-25] MEDS: Benzonatate 100 MG CAP PO PRN ×2 (05:54→11:52)
[2022-01-25] MEDS: HYDROcodone/Acetaminophen 10/325 mg Tablet PO PRN (06:36)
[2022-01-25 08:04] VITALS: TEMP 97.8
[2022-01-25] MEDS: Furosemide 40 MG TAB PO SCH (09:35)
[2022-01-25] MEDS: Spironolactone 100 MG TAB PO SCH (09:35)
[2022-01-25] MEDS: Flecainide 50 MG TAB PO SCH (09:35)
[2022-01-25 12:26] VITALS: BP 135/63
== END 2022-01-25 15:13 | disposition home health service (06) | DRG 372 ==
LOC: ERS 17:05 → 2NO 21:04
PROVIDERS: ADMIT Internal Medicine; ATTEND Internal Medicine
DX: A04.72 Enterocolitis due to Clostridium difficile, not specified as recurrent (principal); E87.1 Hypo-osmolality and hyponatremia; N17.9 Acute kidney failure, unspecified; Z20.822 Contact with and (suspected) exposure to COVID-19; K75.81 Nonalcoholic steatohepatitis (NASH); K74.69 Other cirrhosis of liver; I48.91 Unspecified atrial fibrillation; E78.5 Hyperlipidemia, unspecified; I10 Essential (primary) hypertension; E03.9 Hypothyroidism, unspecified; K21.9 Gastro-esophageal reflux disease without esophagitis; M54.9 Dorsalgia, unspecified; G89.29 Other chronic pain; E78.00 Pure hypercholesterolemia, unspecified; M06.9 Rheumatoid arthritis, unspecified; I35.9 Nonrheumatic aortic valve disorder, unspecified; E87.5 Hyperkalemia; D69.6 Thrombocytopenia, unspecified; I48.0 Paroxysmal atrial fibrillation; E86.0 Dehydration; E83.42 Hypomagnesemia; Z88.5 Allergy status to narcotic agent; Z79.899 Other long term (current) drug therapy; Z79.890 Hormone replacement therapy; Z90.710 Acquired absence of both cervix and uterus; Z95.0 Presence of cardiac pacemaker; Z90.49 Acquired absence of other specified parts of digestive tract
CPT/HCPCS: 36415; 71045; 80048; 80053; 81003; 81015; 82550; 83630; 83735; 83880; 83930; 83935; 84300; 84443; 84484; 85025; 85610; 85730; 87324; 87449; 87493; 87505; 93306; 96360; J3475; J7050

== ENCOUNTER 2022-10-29 16:19 | Inpatient (IN) | payer MEDICARE ==
[2022-10-29 17:13] LABS: #Eosinphils 0.2 thou/uL (0.0-0.7); #Lymphocytes 0.6 thou/uL (1.20-3.40); #Monocytes 0.8 thou/uL (0.11-0.59); #Neutrophils 7.1 thou/uL (1.40-6.50); %Basophils 0.2 % (0.0-1.0); %Eosinophils 2.1 % (0.0-10.0); %Lymphocytes 7.2 % (21.0-51.0); %Monocytes 8.6 % (0.0-10.0); %Neutrophils 81.9 % (42.0-75.0); Hemoglobin 10.4 g/dL (12.0-16.0); Mean Corpuscular HGB CONC 33.1 g/dL (32.0-36.0); Mean Corpuscular Hemoglobin 31.2 pg (27.0-31.0); Mean Corpuscular Volume 94.1 fl (78.0-98.0); Mean Platelet Volume 10.1 fL (7.4-10.4); Platelet Count 56 10x3/uL (130-400); RBC Distribution Width 16.1 % (11.5-14.5); Red Blood Cell (RBC) Count 3.33 mill/uL (4.20-5.40); White Blood Cell (WBC) Count 8.7 10x3/uL (4.8-10.8)
[2022-10-29 17:27] LABS: ALT (SGPT) 32 U/L (8-55); AST (SGOT) 30 U/L (5-34); Albumin 2.6 g/dL (3.4-4.8); Alkaline Phosphatase 144 U/L (40-110); Anion Gap 18 mmol/L (10-20); BUN (Urea Nitrogen) 105 mg/dL (9.8-20.1); Bilirubin, Total 0.5 mg/dL (0.2-1.2); Calc. Creatinine Clearance 0 mL/min (70-130); Calcium 8.1 mg/dL (7.8-10.44); Carbon Dioxide 10 mmol/L (23-31); Chloride 96 mmol/L (98-107); Estimated GFR 13; Globulin 3.6 g/dL (2.4-3.5); Glucose 98 mg/dL (83-110); Potassium 4.8 mmol/L (3.5-5.1); Protein, Total 6.2 g/dL (5.8-8.1)
[2022-10-29] MEDS ORDERED: Albumin 25% 25 GM/100 ML BOT IVPB SCH (17:45)
[2022-10-29 17:54] LABS: Sodium 119 mmol/L (136-145)
[2022-10-29 18:22] LABS: Chloride (VBG) 98 mmol/L (98-106); Hemoglobin (Hb) 11.4 g/dL (11.7-16.1); Potassium (VBG) 4.71 mmol/L (3.70-5.30); pH (venous) 7.23 (7.32-7.43)
[2022-10-29 18:24] LABS: Actual Bicarbonate (HCO3v) 10 mEq/L (22-28)
[2022-10-29] MEDS ORDERED: Acetaminophen 325 MG TAB PO PRN (18:55)
[2022-10-29] MEDS ORDERED: NOREPINEPHRINE 8 MG/250 ML-D5W 250 ML ONE (20:10)
[2022-10-29 21:26] LABS: INR-International Normal Ratio 1.6
[2022-10-29 21:27] LABS: PTT 48.1 sec (22.9-36.1)
[2022-10-29 21:36] LABS: SARS-CoV-2 NAA Rapid Test Not Detected (NotDetected)
[2022-10-29 21:36] LABS: Lipase 54 U/L (8-78); Magnesium 2.1 mg/dL (1.6-2.6)
[2022-10-29] MEDS ORDERED: Sodium Bicarb 50 MEQ/50 ML VIAL IVP SCH (22:00)
[2022-10-29 22:22] VITALS: BMI 25.4
[2022-10-29] MEDS: Zinc Sulfate 220 MG CAP PO SCH (22:52)
[2022-10-29] MEDS: Gabapentin 300 MG CAP PO SCH (22:52)
[2022-10-29] MEDS: Midodrine HCl 5 MG TAB PO SCH (22:53)
[2022-10-29] MEDS ORDERED: NOREPINEPHRINE 8 MG/250 ML-D5W 250 ML IVPB SCH (23:00)
[2022-10-29] MEDS: HYDROcodone/Acetaminophen 5/325 mg Tablet PO SCH (23:34)
[2022-10-30 01:44] LABS: Bacteria/HPF 1+ HPF (None Seen); Bilirubin Negative (Negative); Blood, Urine 3+ (Negative); CAUTI Indications for Culture Immunosuppressed; Clarity Extra Turbid (Clear); Glucose, Urine (Dipstick) Normal (Negative); Ketone, Urine Negative (Negative); Leukocyte 500 Leu/uL (Negative); Nitrite Negative (Negative); Protein, Urine (Dipstick) 50 mg/dL (Neg-Trace); RBC/HPF Greater than 50 HPF (0-3); Specific Gravity, Urine 1.016 (1.002-1.036); Squamous Epithelial None Seen HPF (0-3); Urobilinogen Normal mg/dL (Less than 2); WBC/HPF Greater than 50 HPF (0-3); Yeast-Budding 2+ HPF (None Seen); pH, Urine 5.5 (5.0-9.0)
[2022-10-30 01:45] LABS: Urine Culture Reflex Yes Yes
[2022-10-30 02:17] LABS: Lactic Acid 1.5 mmol/L (0.5-2.2)
[2022-10-30 04:49] LABS: #Eosinphils 0.3 thou/uL (0.0-0.7); #Lymphocytes 1.1 thou/uL (1.20-3.40); #Neutrophils 8.5 thou/uL (1.40-6.50); %Eosinophils 2.7 % (0.0-10.0); %Lymphocytes 10.1 % (21.0-51.0); %Monocytes 9.2 % (0.0-10.0); Hemoglobin 9.3 g/dL (12.0-16.0); Mean Corpuscular HGB CONC 33.4 g/dL (32.0-36.0); Mean Corpuscular Hemoglobin 31.4 pg (27.0-31.0); Mean Corpuscular Volume 94.1 fl (78.0-98.0); Mean Platelet Volume 9.4 fL (7.4-10.4); Platelet Count 105 10x3/uL (130-400); RBC Distribution Width 15.9 % (11.5-14.5); Red Blood Cell (RBC) Count 2.95 mill/uL (4.20-5.40); White Blood Cell (WBC) Count 10.9 10x3/uL (4.8-10.8)
[2022-10-30] MEDS: HYDROcodone/Acetaminophen 5/325 mg Tablet PO SCH ×4 (05:07→23:19)
[2022-10-30] MEDS: Levothyroxine Sodium 125 MCG TAB PO SCH (05:08)
[2022-10-30 05:17] LABS: ALT (SGPT) 28 U/L (8-55); AST (SGOT) 27 U/L (5-34); Albumin 2.7 g/dL (3.4-4.8); Alkaline Phosphatase 139 U/L (40-110); Anion Gap 17 mmol/L (10-20); BUN (Urea Nitrogen) 116 mg/dL (9.8-20.1); Bilirubin, Total 0.7 mg/dL (0.2-1.2); Calc. Creatinine Clearance 12 mL/min (70-130); Carbon Dioxide 13 mmol/L (23-31); Chloride 94 mmol/L (98-107); Estimated GFR 13; Globulin 3.2 g/dL (2.4-3.5); Glucose 97 mg/dL (83-110); Potassium 4.5 mmol/L (3.5-5.1); Protein, Total 5.9 g/dL (5.8-8.1)
[2022-10-30 05:24] LABS: Sodium 119 mmol/L (136-145)
[2022-10-30] MEDS: Albumin 25% 25 GM/100 ML BOT IVPB SCH ×3 (07:40→20:42)
[2022-10-30] MEDS ORDERED: Spironolactone 100 MG TAB PO SCH (08:00)
[2022-10-30] MEDS: Ferrous Sulfate 325 MG TAB PO SCH (08:46)
[2022-10-30] MEDS: Gabapentin 300 MG CAP PO SCH ×2 (08:46→20:42)
[2022-10-30] MEDS: Loratadine 10 MG TAB PO SCH (08:47)
[2022-10-30] MEDS: Cholecalciferol (Vitamin D3) 400 UNITS TAB PO SCH (08:47)
[2022-10-30] MEDS: Saccharomyces boulardii 250 MG CAP PO SCH (08:47)
[2022-10-30] MEDS: Multivitamin W/ Minerals 1 TAB PO SCH (08:47)
[2022-10-30] MEDS: CO Q-10 CAPSULE 100 MG PO SCH (08:47)
[2022-10-30] MEDS: Midodrine HCl 5 MG TAB PO SCH ×3 (08:47→20:43)
[2022-10-30] MEDS: Metoprolol Tartrate 100 MG TAB PO SCH ×2 (08:48→20:43)
[2022-10-30] MEDS: Nadolol 40 MG TAB PO SCH (08:49)
[2022-10-30] MEDS: Zinc Sulfate 220 MG CAP PO SCH ×2 (08:52→20:43)
[2022-10-30] MEDS ORDERED: Furosemide 20 MG TAB PO SCH (09:00)
[2022-10-30] MEDS ORDERED: Sodium Bicarb 50 MEQ/50 ML VIAL IVP SCH (10:30)
[2022-10-30] MEDS: Magnesium Oxide 250 MG TAB PO SCH (10:39)
[2022-10-30 12:33] LABS: Anion Gap 19 mmol/L (10-20); BUN (Urea Nitrogen) 117 mg/dL (9.8-20.1); Calc. Creatinine Clearance 12 mL/min (70-130); Calcium 8.2 mg/dL (7.8-10.44); Carbon Dioxide 12 mmol/L (23-31); Chloride 95 mmol/L (98-107); Estimated GFR 12; Glucose 84 mg/dL (83-110); Potassium 4.4 mmol/L (3.5-5.1); Sodium 122 mmol/L (136-145)
[2022-10-30 17:44] LABS: Anion Gap 19 mmol/L (10-20); BUN (Urea Nitrogen) 119 mg/dL (9.8-20.1); Calc. Creatinine Clearance 12 mL/min (70-130); Calcium 7.8 mg/dL (7.8-10.44); Carbon Dioxide 12 mmol/L (23-31); Chloride 95 mmol/L (98-107); Estimated GFR 12; Glucose 92 mg/dL (83-110); Potassium 4.3 mmol/L (3.5-5.1); Sodium 122 mmol/L (136-145)
[2022-10-30 21:49] LABS: Anion Gap 17 mmol/L (10-20); BUN (Urea Nitrogen) 119 mg/dL (9.8-20.1); Calc. Creatinine Clearance 11 mL/min (70-130); Calcium 7.9 mg/dL (7.8-10.44); Carbon Dioxide 13 mmol/L (23-31); Chloride 95 mmol/L (98-107); Estimated GFR 11; Glucose 112 mg/dL (83-110); Potassium 4.3 mmol/L (3.5-5.1); Sodium 121 mmol/L (136-145)
[2022-10-31] MEDS: Albumin 25% 25 GM/100 ML BOT IVPB SCH ×4 (01:13→20:37)
[2022-10-31 01:46] LABS: Anion Gap 17 mmol/L (10-20); BUN (Urea Nitrogen) 124 mg/dL (9.8-20.1); Calc. Creatinine Clearance 11 mL/min (70-130); Calcium 8.1 mg/dL (7.8-10.44); Carbon Dioxide 15 mmol/L (23-31); Chloride 95 mmol/L (98-107); Estimated GFR 11; Glucose 79 mg/dL (83-110); Potassium 4.5 mmol/L (3.5-5.1); Sodium 122 mmol/L (136-145)
[2022-10-31] MEDS: Levothyroxine Sodium 125 MCG TAB PO SCH (06:14)
[2022-10-31] MEDS: HYDROcodone/Acetaminophen 5/325 mg Tablet PO SCH ×4 (06:15→20:40)
[2022-10-31 07:09] LABS: Anion Gap 18 mmol/L (10-20); Calc. Creatinine Clearance 11 mL/min (70-130); Calcium 8.3 mg/dL (7.8-10.44); Carbon Dioxide 14 mmol/L (23-31); Chloride 94 mmol/L (98-107); Estimated GFR 11; Glucose 73 mg/dL (83-110); Potassium 4.7 mmol/L (3.5-5.1); Sodium 121 mmol/L (136-145)
[2022-10-31 07:20] LABS: BUN (Urea Nitrogen) 113 mg/dL (9.8-20.1)
[2022-10-31] MEDS: Metoprolol Tartrate 100 MG TAB PO SCH (09:10)
[2022-10-31] MEDS: Nadolol 40 MG TAB PO SCH (09:11)
[2022-10-31] MEDS: Cholecalciferol (Vitamin D3) 400 UNITS TAB PO SCH (09:18)
[2022-10-31] MEDS: Saccharomyces boulardii 250 MG CAP PO SCH (09:18)
[2022-10-31] MEDS: Gabapentin 300 MG CAP PO SCH ×2 (09:18→20:38)
[2022-10-31] MEDS: Magnesium Oxide 250 MG TAB PO SCH (09:18)
[2022-10-31] MEDS: Loratadine 10 MG TAB PO SCH (09:19)
[2022-10-31] MEDS: Ferrous Sulfate 325 MG TAB PO SCH (09:19)
[2022-10-31] MEDS: Midodrine HCl 5 MG TAB PO SCH ×3 (09:19→20:37)
[2022-10-31] MEDS: Multivitamin W/ Minerals 1 TAB PO SCH (09:19)
[2022-10-31] MEDS: Zinc Sulfate 220 MG CAP PO SCH ×2 (09:19→20:39)
[2022-10-31] MEDS: CO Q-10 CAPSULE 100 MG PO SCH (09:20)
[2022-10-31] MEDS: Sodium Bicarbonate Tab 325 MG TAB PO SCH ×2 (15:39→20:37)
[2022-11-01] MEDS: Albumin 25% 25 GM/100 ML BOT IVPB SCH (03:33)
[2022-11-01] MEDS: Levothyroxine Sodium 125 MCG TAB PO SCH (05:44)
[2022-11-01] MEDS: HYDROcodone/Acetaminophen 5/325 mg Tablet PO SCH ×2 (06:03→08:22)
[2022-11-01] MEDS: Magnesium Oxide 250 MG TAB PO SCH (08:21)
[2022-11-01] MEDS: Gabapentin 300 MG CAP PO SCH ×2 (08:21→21:17)
[2022-11-01] MEDS: Zinc Sulfate 220 MG CAP PO SCH ×2 (08:21→21:17)
[2022-11-01] MEDS: Sodium Bicarbonate Tab 325 MG TAB PO SCH ×3 (08:21→21:16)
[2022-11-01] MEDS: Cholecalciferol (Vitamin D3) 400 UNITS TAB PO SCH (08:21)
[2022-11-01] MEDS: CO Q-10 CAPSULE 100 MG PO SCH (08:21)
[2022-11-01] MEDS: Saccharomyces boulardii 250 MG CAP PO SCH (08:21)
[2022-11-01] MEDS: Multivitamin W/ Minerals 1 TAB PO SCH (08:21)
[2022-11-01] MEDS: Midodrine HCl 5 MG TAB PO SCH ×3 (08:22→21:16)
[2022-11-01] MEDS: Loratadine 10 MG TAB PO SCH (08:22)
[2022-11-01] MEDS: Ferrous Sulfate 325 MG TAB PO SCH (08:22)
[2022-11-01] MEDS ORDERED: Morphine 2 MG/ML VIAL SLOW IVP PRN (09:01)
[2022-11-01] MEDS ORDERED: Sodium Bicarbonate 2.5 MEQ/5 ML VIAL ONE (12:57)
[2022-11-01] MEDS ORDERED: Lidocaine 1% PF 5 ML VIAL ONE (12:57)
[2022-11-01] MEDS ORDERED: CEFAZOLIN 1 GM in Sodium Chloride 0.9% 100 ML IVPB SCH (13:00)
[2022-11-01] MEDS ORDERED: Lidocaine 1% w/Epinephrine 1:100K 20 ML VIAL ONE (13:43)
[2022-11-01] MEDS: HYDROcodone/Acetaminophen 5/325 mg Tablet PO PRN ×2 (17:38→21:23)
[2022-11-02] MEDS: HYDROcodone/Acetaminophen 5/325 mg Tablet PO PRN ×3 (05:33→23:40)
[2022-11-02] MEDS: Levothyroxine Sodium 125 MCG TAB PO SCH (05:33)
[2022-11-02 06:13] LABS: #Eosinphils 0.1 thou/uL (0.0-0.7); #Lymphocytes 0.6 thou/uL (1.20-3.40); #Monocytes 0.7 thou/uL (0.11-0.59); #Neutrophils 4.9 thou/uL (1.40-6.50); %Basophils 0.1 % (0.0-1.0); %Eosinophils 2.3 % (0.0-10.0); %Lymphocytes 9.5 % (21.0-51.0); %Monocytes 11.5 % (0.0-10.0); %Neutrophils 76.6 % (42.0-75.0); Hemoglobin 6.9 g/dL (12.0-16.0); Mean Corpuscular HGB CONC 35.3 g/dL (32.0-36.0); Mean Corpuscular Hemoglobin 33.1 pg (27.0-31.0); Mean Corpuscular Volume 93.7 fl (78.0-98.0); Mean Platelet Volume 9.8 fL (7.4-10.4); Platelet Count 55 10x3/uL (130-400); RBC Distribution Width 16.2 % (11.5-14.5); Red Blood Cell (RBC) Count 2.08 mill/uL (4.20-5.40); White Blood Cell (WBC) Count 6.4 10x3/uL (4.8-10.8)
[2022-11-02 06:35] LABS: ALT (SGPT) 15 U/L (8-55); AST (SGOT) 18 U/L (5-34); Albumin 3.5 g/dL (3.4-4.8); Alkaline Phosphatase 93 U/L (40-110); Anion Gap 20 mmol/L (10-20); Bilirubin, Total 0.6 mg/dL (0.2-1.2); Calc. Creatinine Clearance 10 mL/min (70-130); Calcium 8.3 mg/dL (7.8-10.44); Carbon Dioxide 14 mmol/L (23-31); Chloride 92 mmol/L (98-107); Estimated GFR 10; Globulin 2.3 g/dL (2.4-3.5); Glucose 93 mg/dL (83-110); Potassium 4.3 mmol/L (3.5-5.1); Protein, Total 5.8 g/dL (5.8-8.1); Sodium 122 mmol/L (136-145)
[2022-11-02 06:48] LABS: BUN (Urea Nitrogen) 115 mg/dL (9.8-20.1)
[2022-11-02] MEDS: Cholecalciferol (Vitamin D3) 400 UNITS TAB PO SCH (07:57)
[2022-11-02] MEDS: Loratadine 10 MG TAB PO SCH (07:57)
[2022-11-02] MEDS: Magnesium Oxide 250 MG TAB PO SCH (07:57)
[2022-11-02] MEDS: Midodrine HCl 5 MG TAB PO SCH ×3 (07:57→22:34)
[2022-11-02] MEDS: Ferrous Sulfate 325 MG TAB PO SCH (07:57)
[2022-11-02] MEDS: Sodium Bicarbonate Tab 325 MG TAB PO SCH ×3 (07:58→22:33)
[2022-11-02] MEDS: Gabapentin 300 MG CAP PO SCH ×2 (07:58→22:35)
[2022-11-02] MEDS: CO Q-10 CAPSULE 100 MG PO SCH (07:58)
[2022-11-02] MEDS: Zinc Sulfate 220 MG CAP PO SCH ×2 (07:59→22:34)
[2022-11-02] MEDS: Multivitamin W/ Minerals 1 TAB PO SCH (07:59)
[2022-11-02] MEDS: Saccharomyces boulardii 250 MG CAP PO SCH (07:59)
[2022-11-02] MEDS ORDERED: Lorazepam 2 MG/ML VIAL SLOW IVP PRN (10:48)
[2022-11-02] MEDS ORDERED: FENTANYL 50 MCG/ML 1 ML VIAL ONE (13:38)
[2022-11-02] MEDS ORDERED: Midazolam HCl 2 mg/2 ml Vial ONE (13:38)
[2022-11-02] MEDS ORDERED: Lidocaine 1% w/Epinephrine 1:100K 20 ML VIAL ONE (13:42)
[2022-11-02] MEDS ORDERED: CEFAZOLIN 1 GM in Sodium Chloride 0.9% 100 ML IVPB SCH (14:45)
[2022-11-02] MEDS: Primidone 50 MG TAB PO SCH ×2 (15:44→22:34)
[2022-11-03] MEDS: Levothyroxine Sodium 125 MCG TAB PO SCH (06:03)
[2022-11-03] MEDS: Sodium Bicarbonate Tab 325 MG TAB PO SCH (08:23)
[2022-11-03] MEDS: Midodrine HCl 5 MG TAB PO SCH (08:23)
[2022-11-03] MEDS: Multivitamin W/ Minerals 1 TAB PO SCH (08:23)
[2022-11-03] MEDS: Cholecalciferol (Vitamin D3) 400 UNITS TAB PO SCH (08:23)
[2022-11-03] MEDS: Magnesium Oxide 250 MG TAB PO SCH (08:23)
[2022-11-03] MEDS: Zinc Sulfate 220 MG CAP PO SCH (08:23)
[2022-11-03] MEDS: Saccharomyces boulardii 250 MG CAP PO SCH (08:23)
[2022-11-03] MEDS: CO Q-10 CAPSULE 100 MG PO SCH (08:23)
[2022-11-03] MEDS: Loratadine 10 MG TAB PO SCH (08:23)
[2022-11-03] MEDS: Ferrous Sulfate 325 MG TAB PO SCH (08:23)
[2022-11-03] MEDS: Primidone 50 MG TAB PO SCH (08:24)
[2022-11-03] MEDS: Gabapentin 300 MG CAP PO SCH (08:24)
[2022-11-03 12:35] VITALS: BP 115/53; TEMP 97.7
[2022-11-03] MEDS: HYDROcodone/Acetaminophen 5/325 mg Tablet PO PRN (12:42)
== END 2022-11-03 15:13 | disposition hospice, home (50) | DRG 432 ==
LOC: ERS 16:19 → CCU 18:36 → T4-A 10-30 15:21
PROVIDERS: ADMIT Family Medicine; ATTEND Family Medicine
PROC: 3E033XZ Introduction of Vasopressor into Peripheral Vein, Percutaneous Approach (ICD-10-PCS; 2022-10-29)
PROC: 02HV33Z Insertion of Infusion Device into Superior Vena Cava, Percutaneous Approach (ICD-10-PCS; 2022-10-29)
PROC: B548ZZA Ultrasonography of Superior Vena Cava, Guidance (ICD-10-PCS; 2022-10-29)
PROC: 0W9G30Z Drainage of Peritoneal Cavity with Drainage Device, Percutaneous Approach (ICD-10-PCS; principal; 2022-11-02)
PROC: 6A550Z2 Pheresis of Platelets, Single (ICD-10-PCS; 2022-11-02)
DX: K74.69 Other cirrhosis of liver (principal); K76.7 Hepatorenal syndrome; N17.9 Acute kidney failure, unspecified; D62 Acute posthemorrhagic anemia; R18.8 Other ascites; E87.1 Hypo-osmolality and hyponatremia; K76.6 Portal hypertension; E87.20 Acidosis, unspecified; R57.9 Shock, unspecified; I12.0 Hypertensive chronic kidney disease with stage 5 chronic kidney disease or end stage renal disease; N18.5 Chronic kidney disease, stage 5; N30.00 Acute cystitis without hematuria; Z66 Do not resuscitate; Z51.5 Encounter for palliative care; Z20.822 Contact with and (suspected) exposure to COVID-19; K75.81 Nonalcoholic steatohepatitis (NASH); D63.1 Anemia in chronic kidney disease; I48.0 Paroxysmal atrial fibrillation; E78.5 Hyperlipidemia, unspecified; D69.6 Thrombocytopenia, unspecified; E03.9 Hypothyroidism, unspecified; G25.2 Other specified forms of tremor; D73.1 Hypersplenism; E88.09 Other disorders of plasma-protein metabolism, not elsewhere classified; Z88.5 Allergy status to narcotic agent; Z79.899 Other long term (current) drug therapy; Z79.890 Hormone replacement therapy; Z95.828 Presence of other vascular implants and grafts; Z90.710 Acquired absence of both cervix and uterus; Z95.0 Presence of cardiac pacemaker; Z90.49 Acquired absence of other specified parts of digestive tract; Z82.3 Family history of stroke; Z82.49 Family history of ischemic heart disease and other diseases of the circulatory system; K21.9 Gastro-esophageal reflux disease without esophagitis
CPT/HCPCS: 36415; 36430; 36556; 49083; 49406; 71045; 76705; 80048; 80053; 81001; 81003; 81015; 82805; 83605; 83690; 83735; 83880; 84484; 85025; 85610; 85730; 86850; 86900; 86901; 87040; 87086; 93005; 96365; 96367; 97139; J0696; J2250; J3010; J3370; P9035; P9047